=== PATIENT | female | born 1950 | race Caucasian/White ===

== ENCOUNTER 2018-08-12 20:43 | Inpatient (IN) | payer MEDICARE, BC ==
[~2018-08-12] VITALS: Ht 170.2 cm; Wt 59.1 kg
[2018-08-12] MEDS ORDERED: morphine 4 MG/ML inj SYRINge IM ONE (21:15)
[2018-08-12] MEDS ORDERED: ondansetron/PF 4mg/2ml inj IV ONE ×2 (21:15→22:35)
[2018-08-12] MEDS ORDERED: morphine 4 MG/ML inj SYRINge IV ONE ×2 (21:35→22:35)
[2018-08-12 22:38] LABS: BASOPHILS % (AUTO) 0 % (0-1); EOSINOPHILS % (AUTO) 0.1 % (0-6); HEMATOCRIT 34.2 % (35.0-45.0); HEMOGLOBIN 11.1 g/dl (12.0-16.0); LYMPHOCYTES # (AUTO) 0.4 X10'3 (1.1-4.8); LYMPHOCYTES % (AUTO) 1.7 % (21-51); MEAN CORPUSCULAR HEMOGLOBIN 29.9 PG (27.0-31.0); MEAN CORPUSCULAR HGB CONC 32.6 % (33.0-36.5); MEAN CORPUSCULAR VOLUME 91.5 FL (78-98); MEAN PLATELET VOLUME 8.1 FL (7.4-10.4); MONOCYTES # (AUTO) 0.3 X10'3 (0-0.9); MONOCYTES % (AUTO) 1.2 % (2-12); NEUTROPHILS # (AUTO) 20.9 X10'3 (1.8-7.7); PLATELET COUNT 582 X10'3 (140-440); RED BLOOD COUNT 3.73 X10'6 (4.20-5.60); RED CELL DISTRIBUTION WIDTH 15.3 % (11.5-14.5); WHITE BLOOD COUNT 21.5 X10'3 (4.5-11.0)
[2018-08-12 22:53] LABS: ALANINE AMINOTRANSFERASE 25 U/L (12-78); ALBUMIN 1.3 G/DL (3.4-5.0); ALBUMIN/GLOBULIN RATIO 0.3 (1.1-1.5); ALKALINE PHOSPHATASE 114 IU/L (46-116); ANION GAP 12 (8-16); ASPARTATE AMINO TRANSFERASE 27 U/L (10-37); BILIRUBIN,TOTAL 0.7 MG/DL (0.1-1.0); BLOOD UREA NITROGEN 37 MG/DL (7-18); BUN/CREATININE RATIO 24.3 (6.6-38.0); CALCIUM 7.7 MG/DL (8.5-10.1); CHLORIDE 94 MMOL/L (99-107); CREATININE 1.52 MG/DL (0.40-0.90); GLUCOSE 83 MG/DL (70-104); POTASSIUM 3.6 MMOL/L (3.5-5.1); SODIUM 129 MMOL/L (135-145); TOTAL CARBON DIOXIDE 23.2 MMOL/L (24-32); TOTAL PROTEIN 5.3 G/DL (6.4-8.2); eGFR 34 ML/MIN
[2018-08-12] MEDS ORDERED: magnesium hydroxide 30ml (MOM) UD suspension PO PRN (23:00)
[2018-08-12] MEDS ORDERED: magnesium 1gm/100ml D5W IVPB 100 ML IV PRN (23:00)
[2018-08-12] MEDS ORDERED: acetaminophen 325mg tablet PO PRN (23:00)
[2018-08-12] MEDS ORDERED: magnesium 4gm in 100ml NS 100 ML IV PRN (23:00)
[2018-08-12] MEDS ORDERED: potassium Cl 40MEQ/NS 500ml 500 ML IV PRN ×2 (23:00)
[2018-08-12] MEDS ORDERED: magnesium Cl slow-release 64mg tablet PO PRN (23:00)
[2018-08-12] MEDS ORDERED: mag hydrox/Alum hydrox/simeth 30ml oral suspension PO PRN (23:00)
[2018-08-12] MEDS ORDERED: potassium Cl 20 mEq SR tablet PO PRN (23:00)
[2018-08-12] MEDS ORDERED: morphine 2 MG/ML inj. syringe IV PRN (23:00)
[2018-08-12] MEDS ORDERED: CHOL50004 PO (23:07)
[2018-08-12] MEDS ORDERED: NAPR220C15 PO (23:07)
[2018-08-12] MEDS ORDERED: FLUT9.9S (23:07)
[2018-08-12] MEDS ORDERED: CYAN100070 PO (23:12)
[2018-08-12] MEDS ORDERED: PRAV10TA39 PO (23:12)
[2018-08-12] MEDS ORDERED: FLUO10CA28 PO (23:12)
[2018-08-12] MEDS ORDERED: OMEP40CA37 PO (23:12)
[2018-08-12] MEDS ORDERED: ATEN-169 PO (23:12)
[2018-08-12] MEDS ORDERED: LORA0.5T PO (23:12)
[2018-08-12 23:33] LABS: ANISOCYTOSIS 1+; BURR CELLS 2+; PLATELET ESTIMATE INCREASED; TOTAL CELLS COUNTED 100; TOXIC GRANULATION 3+
[2018-08-12 23:34] LABS: POIKILOCYTOSIS FEW
[2018-08-13] VITALS (14 sets, daily range): BP systolic 90–150; BP diastolic 36–54
[2018-08-13] MEDS ORDERED: piperacillin/tazo 3.375gm/50ml 50 ML IV SCH
[2018-08-13] MEDS: normal saline 1000ml 1,000 ML IV SCH ×3 (00:42→19:41)
[2018-08-13] MEDS: piperacillin/tazo 4.5gm/100ml 100 ML IV SCH ×3 (00:51→15:00)
[2018-08-13] MEDS: morphine 2 MG/ML inj. syringe IV PRN ×3 (02:59→19:46)
[2018-08-13 06:04] LABS: BASOPHILS % (AUTO) 0 % (0-1); EOSINOPHILS % (AUTO) 0.3 % (0-6); HEMATOCRIT 33.1 % (35.0-45.0); HEMOGLOBIN 10.9 g/dl (12.0-16.0); LYMPHOCYTES # (AUTO) 0.5 X10'3 (1.1-4.8); LYMPHOCYTES % (AUTO) 3.1 % (21-51); MEAN CORPUSCULAR HEMOGLOBIN 30.2 PG (27.0-31.0); MEAN CORPUSCULAR HGB CONC 32.8 % (33.0-36.5); MEAN CORPUSCULAR VOLUME 92.2 FL (78-98); MEAN PLATELET VOLUME 7.8 FL (7.4-10.4); MONOCYTES # (AUTO) 0.3 X10'3 (0-0.9); MONOCYTES % (AUTO) 2.2 % (2-12); NEUTROPHILS # (AUTO) 14.3 X10'3 (1.8-7.7); NEUTROPHILS % (AUTO) 94.4 % (42-75); PLATELET COUNT 519 X10'3 (140-440); RED BLOOD COUNT 3.59 X10'6 (4.20-5.60); RED CELL DISTRIBUTION WIDTH 15.2 % (11.5-14.5); WHITE BLOOD COUNT 15.2 X10'3 (4.5-11.0)
[2018-08-13 06:09] LABS: ALBUMIN 1.2 G/DL (3.4-5.0); ANION GAP 11 (8-16); BLOOD UREA NITROGEN 37 MG/DL (7-18); BUN/CREATININE RATIO 24.8 (6.6-38.0); CALCIUM 7.6 MG/DL (8.5-10.1); CHLORIDE 96 MMOL/L (99-107); CREATININE 1.49 MG/DL (0.40-0.90); GLUCOSE 70 MG/DL (70-104); MAGNESIUM 1.2 MG/DL (1.5-2.4); SODIUM 129 MMOL/L (135-145); TOTAL CARBON DIOXIDE 21.7 MMOL/L (24-32); eGFR 35 ML/MIN
[2018-08-13 07:04] LABS: ANISOCYTOSIS 1+; PLATELET ESTIMATE INCREASED; TOTAL CELLS COUNTED 100
[2018-08-13 07:05] LABS: POIKILOCYTOSIS FEW
[2018-08-13] MEDS: K and/or MAG REPLACEMENT MC SCH (08:23)
[2018-08-13] MEDS: FLUoxetine 20mg capsule PO SCH (09:57)
[2018-08-13 10:05] LABS: INR 1.2 INR; PARTIAL THROMBOPLASTIN TIME 32 SECONDS (22-32); PROTHROMBIN TIME 11.6 SECONDS (9.0-12.0)
[2018-08-13] MEDS ORDERED: propofol inj 20 ML IV ONE (16:20)
[2018-08-13] MEDS ORDERED: fentaNYL /PF 50mcg/ml 5ml ampule ONE (16:20)
[2018-08-13] MEDS ORDERED: rocuronium 10mg/ml inj IV ONE (16:20)
[2018-08-13] MEDS ORDERED: sevoflurane 250ml liquid IH ONE (16:36)
[2018-08-13] MEDS ORDERED: neostigmine methylsulfate 1 MG/ML 10ml vial ONE (18:00)
[2018-08-13] MEDS ORDERED: glycopyrrolate 0.2mg/ml inj ONE (18:00)
[2018-08-13] MEDS ORDERED: ringers solution, lacted 1,000 ML IV SCH (18:11)
[2018-08-13] MEDS ORDERED: meperidine/PF 25mg/ml syringe IV PRN ×3 (18:15)
[2018-08-13] MEDS ORDERED: morphine 4 MG/ML inj SYRINge IV PRN ×2 (18:15)
[2018-08-13] MEDS ORDERED: ondansetron/PF 4mg/2ml inj IV PRN (18:15)
[2018-08-13] MEDS ORDERED: proCHLORperazine 10 MG/2 ml inj IV PRN (18:15)
[2018-08-13 21:23] LABS: BASOPHILS % (AUTO) 0 % (0-1); EOSINOPHILS % (AUTO) 0 % (0-6); HEMATOCRIT 29.3 % (35.0-45.0); HEMOGLOBIN 9.5 g/dl (12.0-16.0); LYMPHOCYTES # (AUTO) 0.5 X10'3 (1.1-4.8); LYMPHOCYTES % (AUTO) 3.2 % (21-51); MEAN CORPUSCULAR HEMOGLOBIN 29.8 PG (27.0-31.0); MEAN CORPUSCULAR HGB CONC 32.5 % (33.0-36.5); MEAN CORPUSCULAR VOLUME 91.6 FL (78-98); MEAN PLATELET VOLUME 8.1 FL (7.4-10.4); MONOCYTES # (AUTO) 0.1 X10'3 (0-0.9); MONOCYTES % (AUTO) 0.4 % (2-12); NEUTROPHILS # (AUTO) 14.6 X10'3 (1.8-7.7); NEUTROPHILS % (AUTO) 96.4 % (42-75); PLATELET COUNT 406 X10'3 (140-440); RED CELL DISTRIBUTION WIDTH 15.8 % (11.5-14.5); WHITE BLOOD COUNT 15.1 X10'3 (4.5-11.0)
[2018-08-13] MEDS ORDERED: normal saline 500ml IV soln 500 ML IV ONE (21:40)
[2018-08-13 21:46] LABS: ALANINE AMINOTRANSFERASE 29 U/L (12-78); ALBUMIN 1.6 G/DL (3.4-5.0); ALBUMIN/GLOBULIN RATIO 0.5 (1.1-1.5); ALKALINE PHOSPHATASE 79 IU/L (46-116); ANION GAP 15 (8-16); ASPARTATE AMINO TRANSFERASE 53 U/L (10-37); BILIRUBIN,TOTAL 0.5 MG/DL (0.1-1.0); BLOOD UREA NITROGEN 37 MG/DL (7-18); BUN/CREATININE RATIO 27.8 (6.6-38.0); CALCIUM 7.5 MG/DL (8.5-10.1); CHLORIDE 99 MMOL/L (99-107); CREATININE 1.33 MG/DL (0.40-0.90); GLUCOSE 98 MG/DL (70-104); MAGNESIUM 1.4 MG/DL (1.5-2.4); PHOSPHORUS 5.3 MG/DL (2.3-4.5); POTASSIUM 4.1 MMOL/L (3.5-5.1); SODIUM 133 MMOL/L (135-145); TOTAL CARBON DIOXIDE 19.5 MMOL/L (24-32); eGFR 40 ML/MIN
[2018-08-13 23:55] LABS: CLARITY,URINE SLIGHTLY CLOUDY (Clear); COLOR,URINE YELLOW (Yellow); GLUCOSE, URINE NEGATIVE (Neg); KETONES,URINE NEGATIVE (Neg); LEUKOCYTE ESTERASE ,URINE NEGATIVE (Neg); NITRITES, URINE NEGATIVE (Neg); OCCULT BLOOD,URINE LARGE (Neg); PROTEIN,URINE TRACE mg/dl (Neg); UROBILINOGEN,URINE 0.2 E.U/dL (0.2-1.0)
[2018-08-14] VITALS (24 sets, daily range): BP systolic 84–127; BP diastolic 36–72
[2018-08-14 00:05] LABS: UA COLLECTION TYPE FOLEY CATH
[2018-08-14 00:09] LABS: AMORPHOUS URATES 1+; BACTERIA,URINE FEW /HPF (Neg); RBC,URINE 0-2 /HPF (0-2); SQUAMOUS EPITHELIAL CELL,UR FEW /LPF (FEW); URIC ACID CRYSTALS 4+ /HPF (NEGATIVE); WBC,URINE 0-4 /HPF (0-4)
[2018-08-14 00:50] LABS: UA EOSINOPHILS NO EOS /HPF
[2018-08-14 00:51] LABS: SODIUM,URINE RANDOM < 15 MEQ/L; TOTAL PROTEIN,URINE RANDOM 103.1 MG/DL
[2018-08-14] MEDS: piperacillin/tazo 4.5gm/100ml 100 ML IV SCH ×3 (00:56→15:20)
[2018-08-14 01:08] LABS: OSMOLALITY UA 357 MOSM/K (50-1400)
[2018-08-14] MEDS: morphine 2 MG/ML inj. syringe IV PRN (03:45)
[2018-08-14] MEDS: normal saline 1000ml 1,000 ML IV SCH ×3 (05:47→18:55)
[2018-08-14 06:56] LABS: BASOPHILS % (AUTO) 0 % (0-1); EOSINOPHILS % (AUTO) 0.2 % (0-6); HEMATOCRIT 28.1 % (35.0-45.0); LYMPHOCYTES # (AUTO) 0.8 X10'3 (1.1-4.8); LYMPHOCYTES % (AUTO) 4.1 % (21-51); MEAN CORPUSCULAR HEMOGLOBIN 29.6 PG (27.0-31.0); MEAN CORPUSCULAR VOLUME 92.4 FL (78-98); MEAN PLATELET VOLUME 8.1 FL (7.4-10.4); MONOCYTES # (AUTO) 0.1 X10'3 (0-0.9); MONOCYTES % (AUTO) 0.7 % (2-12); NEUTROPHILS # (AUTO) 18.4 X10'3 (1.8-7.7); PLATELET COUNT 384 X10'3 (140-440); RED BLOOD COUNT 3.04 X10'6 (4.20-5.60); RED CELL DISTRIBUTION WIDTH 15.8 % (11.5-14.5); WHITE BLOOD COUNT 19.4 X10'3 (4.5-11.0)
[2018-08-14 07:02] LABS: ALBUMIN 1.4 G/DL (3.4-5.0); ANION GAP 14 (8-16); BLOOD UREA NITROGEN 38 MG/DL (7-18); BUN/CREATININE RATIO 31.1 (6.6-38.0); CALCIUM 7.9 MG/DL (8.5-10.1); CHLORIDE 101 MMOL/L (99-107); CREATININE 1.22 MG/DL (0.40-0.90); GLUCOSE 135 MG/DL (70-104); MAGNESIUM 3.8 MG/DL (1.5-2.4); POTASSIUM 3.7 MMOL/L (3.5-5.1); SODIUM 135 MMOL/L (135-145); TOTAL CARBON DIOXIDE 20.5 MMOL/L (24-32); eGFR 44 ML/MIN
[2018-08-14 07:40] LABS: ANISOCYTOSIS 1+; PLATELET ESTIMATE NORMAL; POLYCHROMASIA 1+; TOTAL CELLS COUNTED 100; TOXIC GRANULATION 2+
[2018-08-14 07:41] LABS: BURR CELLS 1+; TARGET CELLS 1+; TOXIC VACUOLATION 1+
[2018-08-14] MEDS: K and/or MAG REPLACEMENT MC SCH (07:46)
[2018-08-14] MEDS ORDERED: atorvastatin 10mg tablet PO SCH (08:00)
[2018-08-14] MEDS: FLUoxetine 20mg capsule PO SCH (08:11)
[2018-08-14] MEDS: pantoprazole 40mg Tablet.DR PO SCH (08:11)
[2018-08-14] MEDS: atenolol 50mg tablet PO SCH (08:12)
[2018-08-14] MEDS: HYDROmorphone/NS 1 mg/ml CADD 50 ML IV SCH ×8 (11:00→23:00)
[2018-08-14] MEDS ORDERED: vancomycin/NS 1 GM ADD-VANTAGE 250 ML IV ONE (11:35)
[2018-08-14] MEDS: ipratropium/albuterol 3ml nebule NEB PRN (20:36)
[2018-08-15] VITALS (24 sets, daily range): BP systolic 90–166; BP diastolic 39–77
[2018-08-15] MEDS: HYDROmorphone/NS 1 mg/ml CADD 50 ML IV SCH ×12 (01:00→23:00)
[2018-08-15 06:28] LABS: BASOPHILS % (AUTO) 0.1 % (0-1); EOSINOPHILS # (AUTO) 0.1 X10'3 (0-0.9); EOSINOPHILS % (AUTO) 0.5 % (0-6); HEMATOCRIT 25.5 % (35.0-45.0); HEMOGLOBIN 8.2 g/dl (12.0-16.0); LYMPHOCYTES # (AUTO) 0.9 X10'3 (1.1-4.8); LYMPHOCYTES % (AUTO) 4.3 % (21-51); MEAN CORPUSCULAR HEMOGLOBIN 29.6 PG (27.0-31.0); MEAN CORPUSCULAR HGB CONC 32.1 % (33.0-36.5); MEAN CORPUSCULAR VOLUME 92.3 FL (78-98); MEAN PLATELET VOLUME 8.1 FL (7.4-10.4); MONOCYTES # (AUTO) 0.2 X10'3 (0-0.9); MONOCYTES % (AUTO) 0.9 % (2-12); NEUTROPHILS # (AUTO) 18.7 X10'3 (1.8-7.7); NEUTROPHILS % (AUTO) 94.2 % (42-75); PLATELET COUNT 303 X10'3 (140-440); RED BLOOD COUNT 2.76 X10'6 (4.20-5.60); RED CELL DISTRIBUTION WIDTH 15.6 % (11.5-14.5); WHITE BLOOD COUNT 19.9 X10'3 (4.5-11.0)
[2018-08-15 06:44] LABS: ALBUMIN 1.1 G/DL (3.4-5.0); ANION GAP 8 (8-16); BLOOD UREA NITROGEN 28 MG/DL (7-18); BUN/CREATININE RATIO 31.1 (6.6-38.0); CALCIUM 8.2 MG/DL (8.5-10.1); CHLORIDE 102 MMOL/L (99-107); GLUCOSE 130 MG/DL (70-104); MAGNESIUM 2.5 MG/DL (1.5-2.4); POTASSIUM 3.4 MMOL/L (3.5-5.1); SODIUM 133 MMOL/L (135-145); TOTAL CARBON DIOXIDE 22.8 MMOL/L (24-32); eGFR 63 ML/MIN
[2018-08-15 07:06] LABS: ANISOCYTOSIS 1+; PLATELET ESTIMATE NORMAL; TARGET CELLS FEW
[2018-08-15] MEDS: FLUoxetine 20mg capsule PO SCH (07:23)
[2018-08-15] MEDS: piperacillin/tazo 4.5gm/100ml 100 ML IV SCH ×3 (07:23→15:26)
[2018-08-15] MEDS: potassium Cl 20 mEq SR tablet PO PRN ×2 (07:23→19:13)
[2018-08-15] MEDS: pantoprazole 40mg Tablet.DR PO SCH (07:24)
[2018-08-15] MEDS: atenolol 50mg tablet PO SCH (07:24)
[2018-08-15] MEDS: K and/or MAG REPLACEMENT MC SCH (07:24)
[2018-08-15] MEDS: vitamin D (cholecalciferol) 1,000 unit tablet PO SCH (07:24)
[2018-08-15] MEDS: normal saline 1000ml 1,000 ML IV SCH ×2 (10:56→19:08)
[2018-08-15] MEDS: vancomycin/NS 1 GM ADD-VANTAGE 250 ML IV SCH (12:26)
[2018-08-15] MEDS: ipratropium/albuterol 3ml nebule NEB PRN (20:40)
[2018-08-15] MEDS: temazepam 15mg capsule PO PRN (20:57)
[2018-08-16] VITALS (20 sets, daily range): BP systolic 102–196; BP diastolic 52–96
[2018-08-16] MEDS: piperacillin/tazo 4.5gm/100ml 100 ML IV SCH ×3 (00:23→16:10)
[2018-08-16] MEDS: HYDROmorphone/NS 1 mg/ml CADD 50 ML IV SCH ×12 (01:00→23:00)
[2018-08-16] MEDS: normal saline 1000ml 1,000 ML IV SCH ×2 (05:18→16:10)
[2018-08-16 06:14] LABS: BASOPHILS % (AUTO) 0.1 % (0-1); EOSINOPHILS # (AUTO) 0.1 X10'3 (0-0.9); EOSINOPHILS % (AUTO) 0.4 % (0-6); HEMATOCRIT 24.6 % (35.0-45.0); LYMPHOCYTES # (AUTO) 0.9 X10'3 (1.1-4.8); LYMPHOCYTES % (AUTO) 5.2 % (21-51); MEAN CORPUSCULAR HEMOGLOBIN 29.6 PG (27.0-31.0); MEAN CORPUSCULAR HGB CONC 32.7 % (33.0-36.5); MEAN CORPUSCULAR VOLUME 90.7 FL (78-98); MEAN PLATELET VOLUME 8.4 FL (7.4-10.4); MONOCYTES # (AUTO) 0.2 X10'3 (0-0.9); MONOCYTES % (AUTO) 1.1 % (2-12); NEUTROPHILS % (AUTO) 93.2 % (42-75); PLATELET COUNT 306 X10'3 (140-440); RED BLOOD COUNT 2.71 X10'6 (4.20-5.60); RED CELL DISTRIBUTION WIDTH 16.3 % (11.5-14.5); WHITE BLOOD COUNT 18.3 X10'3 (4.5-11.0)
[2018-08-16 06:32] LABS: ALBUMIN 1.1 G/DL (3.4-5.0); ANION GAP 8 (8-16); BLOOD UREA NITROGEN 18 MG/DL (7-18); BUN/CREATININE RATIO 27.3 (6.6-38.0); CALCIUM 8.3 MG/DL (8.5-10.1); CHLORIDE 103 MMOL/L (99-107); CREATININE 0.66 MG/DL (0.40-0.90); GLUCOSE 115 MG/DL (70-104); MAGNESIUM 1.5 MG/DL (1.5-2.4); POTASSIUM 3.4 MMOL/L (3.5-5.1); SODIUM 134 MMOL/L (135-145); TOTAL CARBON DIOXIDE 23.2 MMOL/L (24-32); eGFR 90 ML/MIN
[2018-08-16] MEDS: FLUoxetine 20mg capsule PO SCH (07:56)
[2018-08-16] MEDS: vitamin D (cholecalciferol) 1,000 unit tablet PO SCH (07:57)
[2018-08-16] MEDS: atenolol 50mg tablet PO SCH (07:57)
[2018-08-16] MEDS: pantoprazole 40mg Tablet.DR PO SCH (07:57)
[2018-08-16] MEDS: K and/or MAG REPLACEMENT MC SCH (08:07)
[2018-08-16 08:50] LABS: ANISOCYTOSIS 1+; PLATELET ESTIMATE NORMAL; TOTAL CELLS COUNTED 100
[2018-08-16 08:51] LABS: TOXIC GRANULATION 1+
[2018-08-16] MEDS: vancomycin/NS 1 GM ADD-VANTAGE 250 ML IV SCH (12:54)
[2018-08-16] MEDS: lactose-reduced food (Ensure Enlive) - 237ml bottle PO SCH ×2 (13:00→20:43)
[2018-08-16] MEDS: ipratropium/albuterol 3ml nebule NEB PRN (13:07)
[2018-08-16] MEDS ORDERED: potassium Cl 20 mEq SR tablet PO PRN ×2 (19:30)
[2018-08-16] MEDS ORDERED: potassium Cl 40MEQ/NS 500ml 500 ML IV PRN ×2 (19:30)
[2018-08-16] MEDS ORDERED: lactobacillus rhamnosus 10,000 MMU CELLS/CAPSULE PO SCH (20:00)
[2018-08-16] MEDS: temazepam 15mg capsule PO PRN (20:51)
[2018-08-17] VITALS: BP 151/76
[2018-08-17] MEDS: HYDROmorphone/NS 1 mg/ml CADD 50 ML IV SCH ×12 (01:00→23:00)
[2018-08-17] MEDS: piperacillin/tazo 4.5gm/100ml 100 ML IV SCH ×4 (01:01→23:42)
[2018-08-17] MEDS: normal saline 1000ml 1,000 ML IV SCH ×3 (03:00→15:18)
[2018-08-17 05:09] LABS: BASOPHILS % (AUTO) 0 % (0-1); EOSINOPHILS % (AUTO) 0.1 % (0-6); HEMATOCRIT 27.6 % (35.0-45.0); LYMPHOCYTES % (AUTO) 4.2 % (21-51); MEAN CORPUSCULAR HEMOGLOBIN 29.7 PG (27.0-31.0); MEAN CORPUSCULAR HGB CONC 32.6 % (33.0-36.5); MEAN PLATELET VOLUME 8.7 FL (7.4-10.4); MONOCYTES # (AUTO) 0.6 X10'3 (0-0.9); MONOCYTES % (AUTO) 2.5 % (2-12); NEUTROPHILS # (AUTO) 21.5 X10'3 (1.8-7.7); NEUTROPHILS % (AUTO) 93.2 % (42-75); PLATELET COUNT 306 X10'3 (140-440); RED BLOOD COUNT 3.03 X10'6 (4.20-5.60); RED CELL DISTRIBUTION WIDTH 15.9 % (11.5-14.5); WHITE BLOOD COUNT 23.1 X10'3 (4.5-11.0)
[2018-08-17 05:26] LABS: ALBUMIN 1.2 G/DL (3.4-5.0); ANION GAP 10 (8-16); BLOOD UREA NITROGEN 14 MG/DL (7-18); BUN/CREATININE RATIO 22.2 (6.6-38.0); CALCIUM 8.5 MG/DL (8.5-10.1); CHLORIDE 105 MMOL/L (99-107); CREATININE 0.63 MG/DL (0.40-0.90); GLUCOSE 132 MG/DL (70-104); MAGNESIUM 1.3 MG/DL (1.5-2.4); POTASSIUM 3.7 MMOL/L (3.5-5.1); SODIUM 138 MMOL/L (135-145); TOTAL CARBON DIOXIDE 23.5 MMOL/L (24-32); eGFR > 90 ML/MIN
[2018-08-17] MEDS: ipratropium/albuterol 3ml nebule NEB PRN ×2 (05:58→20:06)
[2018-08-17 07:00] VITALS: BP 167/74
[2018-08-17] MEDS: K and/or MAG REPLACEMENT MC SCH (08:00)
[2018-08-17] MEDS: vitamin D (cholecalciferol) 1,000 unit tablet PO SCH (08:03)
[2018-08-17] MEDS: pantoprazole 40mg Tablet.DR PO SCH (08:04)
[2018-08-17] MEDS: FLUoxetine 20mg capsule PO SCH (08:04)
[2018-08-17] MEDS: lactose-reduced food (Ensure Enlive) - 237ml bottle PO SCH ×3 (08:16→18:01)
[2018-08-17 11:00] VITALS: BP 160/68
[2018-08-17] MEDS ORDERED: VANCOMYCIN LEVEL IV ONE (11:30)
[2018-08-17] MEDS: atenolol 50mg tablet PO SCH (12:38)
[2018-08-17] MEDS: diatr meglu/diatrizoate 30ml oral sol.-(3 dose) bottle PO PRN (19:58)
[2018-08-17] MEDS: LORazepam 0.5 MG tablet PO PRN (19:58)
[2018-08-18] VITALS: BP 164/81
[2018-08-18] MEDS: HYDROmorphone/NS 1 mg/ml CADD 50 ML IV SCH ×6 (01:00→11:00)
[2018-08-18 05:08] LABS: MAGNESIUM 1.2 MG/DL (1.5-2.4); POTASSIUM 3.7 MMOL/L (3.5-5.1)
[2018-08-18 07:00] VITALS: BP 147/88
[2018-08-18] MEDS: diatr meglu/diatrizoate 30ml oral sol.-(3 dose) bottle PO PRN ×2 (07:44→10:58)
[2018-08-18] MEDS: lactose-reduced food (Ensure Enlive) - 237ml bottle PO SCH ×3 (08:00→18:05)
[2018-08-18 08:29] LABS: BASOPHILS % (AUTO) 0.2 % (0-1); EOSINOPHILS # (AUTO) 0.4 X10'3 (0-0.9); HEMATOCRIT 25.8 % (35.0-45.0); HEMOGLOBIN 8.3 g/dl (12.0-16.0); LYMPHOCYTES % (AUTO) 5.6 % (21-51); MEAN CORPUSCULAR HEMOGLOBIN 29.5 PG (27.0-31.0); MEAN PLATELET VOLUME 9.2 FL (7.4-10.4); MONOCYTES # (AUTO) 0.5 X10'3 (0-0.9); MONOCYTES % (AUTO) 2.9 % (2-12); NEUTROPHILS # (AUTO) 16.8 X10'3 (1.8-7.7); NEUTROPHILS % (AUTO) 89.3 % (42-75); PLATELET COUNT 310 X10'3 (140-440); RED CELL DISTRIBUTION WIDTH 16.3 % (11.5-14.5); WHITE BLOOD COUNT 18.8 X10'3 (4.5-11.0)
[2018-08-18 08:56] LABS: ALBUMIN 1.2 G/DL (3.4-5.0); BLOOD UREA NITROGEN 11 MG/DL (7-18); BUN/CREATININE RATIO 20.8 (6.6-38.0); CALCIUM 8.4 MG/DL (8.5-10.1); CREATININE 0.53 MG/DL (0.40-0.90); GLUCOSE 130 MG/DL (70-104); TOTAL CARBON DIOXIDE 23.9 MMOL/L (24-32); eGFR > 90 ML/MIN
[2018-08-18] MEDS: normal saline 1000ml 1,000 ML IV SCH ×2 (08:56→16:34)
[2018-08-18 09:10] LABS: ANION GAP 9 (8-16); CHLORIDE 103 MMOL/L (99-107); SODIUM 136 MMOL/L (135-145)
[2018-08-18 09:13] LABS: TOTAL CELLS COUNTED 100
[2018-08-18 09:14] LABS: ANISOCYTOSIS 1+; PLATELET ESTIMATE NORMAL; TARGET CELLS 1+
[2018-08-18 09:16] LABS: GIANT PLATELET FEW; LARGE PLATELETS FEW; TOXIC GRANULATION 2+
[2018-08-18] MEDS ORDERED: iohexol 300mg/ml 100ml inj. ONE (10:55)
[2018-08-18 11:00] VITALS: BP 172/89
[2018-08-18] MEDS ORDERED: enoxaparin 40mg/0.4ml syringe SUBCUT SCH (11:00)
[2018-08-18] MEDS: metroNIDAZOLE-Flagyl 500mg/NS 100 ML IV SCH ×2 (12:05→16:34)
[2018-08-18] MEDS: vitamin D (cholecalciferol) 1,000 unit tablet PO SCH (12:06)
[2018-08-18] MEDS: FLUoxetine 20mg capsule PO SCH (12:07)
[2018-08-18] MEDS: atenolol 50mg tablet PO SCH (12:07)
[2018-08-18] MEDS: pantoprazole 40mg Tablet.DR PO SCH (12:07)
[2018-08-18] MEDS: K and/or MAG REPLACEMENT MC SCH (12:53)
[2018-08-18] MEDS: CefTRIAXone 2gm/D5W 50ml 50 ML IV SCH (13:11)
[2018-08-18 19:30] VITALS: BP 168/90
[2018-08-18] MEDS: ipratropium/albuterol 3ml nebule NEB PRN (19:31)
[2018-08-18] MEDS: enoxaparin 60mg/0.6ml syringe SUBCUT SCH (20:35)
[2018-08-18] MEDS: temazepam 15mg capsule PO PRN (20:35)
[2018-08-18] MEDS: LORazepam 0.5 MG tablet PO PRN (20:36)
[2018-08-18] MEDS ORDERED: magnesium oxide 400mg tablet PO ONE (20:55)
[2018-08-18] MEDS: HYDROcodone/acetaminophen 5mg/325mg tablet PO PRN (20:58)
[2018-08-18] MEDS: ondansetron/PF 4mg/2ml inj IV PRN (20:59)
[2018-08-19] VITALS (7 sets, daily range): BP systolic 161–192; BP diastolic 78–110
[2018-08-19] MEDS: metroNIDAZOLE-Flagyl 500mg/NS 100 ML IV SCH ×4 (01:03→23:57)
[2018-08-19] MEDS: ipratropium/albuterol 3ml nebule NEB PRN ×3 (02:41→23:42)
[2018-08-19] MEDS: ondansetron/PF 4mg/2ml inj IV PRN (02:46)
[2018-08-19] MEDS ORDERED: CADD PCA waste documentation MC SCH (04:40)
[2018-08-19] MEDS: normal saline 1000ml 1,000 ML IV SCH (05:05)
[2018-08-19 05:32] LABS: MAGNESIUM 1.3 MG/DL (1.5-2.4); POTASSIUM 3.6 MMOL/L (3.5-5.1)
[2018-08-19] MEDS: K and/or MAG REPLACEMENT MC SCH (07:57)
[2018-08-19] MEDS: lactose-reduced food (Ensure Enlive) - 237ml bottle PO SCH ×3 (08:00→18:00)
[2018-08-19] MEDS: vitamin D (cholecalciferol) 1,000 unit tablet PO SCH (08:04)
[2018-08-19] MEDS: FLUoxetine 20mg capsule PO SCH (08:04)
[2018-08-19] MEDS: pantoprazole 40mg Tablet.DR PO SCH (08:05)
[2018-08-19] MEDS: atenolol 50mg tablet PO SCH ×2 (08:05→19:54)
[2018-08-19] MEDS: enoxaparin 60mg/0.6ml syringe SUBCUT SCH ×2 (08:11→20:00)
[2018-08-19] MEDS: HYDROcodone/acetaminophen 5mg/325mg tablet PO PRN ×3 (08:11→22:35)
[2018-08-19] MEDS: CefTRIAXone 2gm/D5W 50ml 50 ML IV SCH (09:32)
[2018-08-19] MEDS ORDERED: atenolol 50mg tablet PO PRN (10:10)
[2018-08-19] MEDS ORDERED: magnesium 4gm in 100ml NS 100 ML IV PRN (10:30)
[2018-08-19] MEDS ORDERED: furosemide 10 MG/1 ML 10ml inj IV ONE (12:40)
[2018-08-19] MEDS: magnesium Cl slow-release 64mg tablet PO PRN (17:17)
[2018-08-19] MEDS: LORazepam 0.5 MG tablet PO PRN (19:52)
[2018-08-20] VITALS: BP 169/93
[2018-08-20 07:00] VITALS: BP 174/89
[2018-08-20] MEDS: FLUoxetine 20mg capsule PO SCH (07:51)
[2018-08-20] MEDS: pantoprazole 40mg Tablet.DR PO SCH (07:51)
[2018-08-20] MEDS: atenolol 50mg tablet PO SCH ×2 (07:52→20:16)
[2018-08-20] MEDS: metroNIDAZOLE-Flagyl 500mg/NS 100 ML IV SCH ×2 (07:52→16:20)
[2018-08-20] MEDS: vitamin D (cholecalciferol) 1,000 unit tablet PO SCH (07:52)
[2018-08-20] MEDS: K and/or MAG REPLACEMENT MC SCH (07:55)
[2018-08-20] MEDS: Protein Smoothie (high protein) 240ml (8oz) cup PO SCH ×3 (08:00→14:39)
[2018-08-20] MEDS: lactose-reduced food (Ensure Enlive) - 237ml bottle PO SCH ×3 (08:00→18:10)
[2018-08-20] MEDS: HYDROcodone/acetaminophen 5mg/325mg tablet PO PRN ×3 (08:00→20:18)
[2018-08-20] MEDS: CefTRIAXone 2gm/D5W 50ml 50 ML IV SCH (09:16)
[2018-08-20 09:56] LABS: BASOPHILS # (AUTO) 0.2 X10'3 (0-0.2); BASOPHILS % (AUTO) 0.6 % (0-1); EOSINOPHILS % (AUTO) 0.1 % (0-6); HEMATOCRIT 29.3 % (35.0-45.0); HEMOGLOBIN 9.3 g/dl (12.0-16.0); LYMPHOCYTES # (AUTO) 0.8 X10'3 (1.1-4.8); LYMPHOCYTES % (AUTO) 3.4 % (21-51); MEAN CORPUSCULAR HEMOGLOBIN 29.3 PG (27.0-31.0); MEAN CORPUSCULAR HGB CONC 31.8 % (33.0-36.5); MEAN CORPUSCULAR VOLUME 92.1 FL (78-98); MEAN PLATELET VOLUME 10.4 FL (7.4-10.4); MONOCYTES # (AUTO) 0.1 X10'3 (0-0.9); MONOCYTES % (AUTO) 0.5 % (2-12); NEUTROPHILS # (AUTO) 22.8 X10'3 (1.8-7.7); NEUTROPHILS % (AUTO) 95.4 % (42-75); PLATELET COUNT 473 X10'3 (140-440); RED BLOOD COUNT 3.18 X10'6 (4.20-5.60); WHITE BLOOD COUNT 23.9 X10'3 (4.5-11.0)
[2018-08-20] MEDS ORDERED: potassium Cl 40MEQ/NS 500ml 500 ML IV PRN ×2 (10:40)
[2018-08-20] MEDS ORDERED: potassium Cl 20 mEq SR tablet PO PRN (10:40)
[2018-08-20] MEDS: potassium Cl 20 mEq SR tablet PO PRN ×2 (11:26→16:20)
[2018-08-20] MEDS: lisinopril 10 MG tablet PO PRN (11:32)
[2018-08-20 12:13] LABS: ANISOCYTOSIS 1+; HYPOCHROMASIA 1+; PLATELET ESTIMATE INCREASED; POLYCHROMASIA 2+; TOTAL CELLS COUNTED 100
[2018-08-20 12:14] LABS: TARGET CELLS 1+; TOXIC GRANULATION 3+
[2018-08-20 12:26] VITALS: BP 177/87
[2018-08-20] MEDS: ipratropium/albuterol 3ml nebule NEB PRN (14:00)
[2018-08-20] MEDS: LORazepam 0.5 MG tablet PO PRN (16:20)
[2018-08-20 20:00] VITALS: BP 157/73
[2018-08-20] MEDS: enoxaparin 60mg/0.6ml syringe SUBCUT SCH (20:17)
[2018-08-21] VITALS: BP 161/88
[2018-08-21] MEDS: metroNIDAZOLE-Flagyl 500mg/NS 100 ML IV SCH ×4 (00:14→23:10)
[2018-08-21 04:30] LABS: ALANINE AMINOTRANSFERASE 10 U/L (12-78); ALBUMIN 1.3 G/DL (3.4-5.0); ALBUMIN/GLOBULIN RATIO 0.4 (1.1-1.5); ALKALINE PHOSPHATASE 99 IU/L (46-116); ANION GAP 8 (8-16); ASPARTATE AMINO TRANSFERASE 18 U/L (10-37); BASOPHILS # (AUTO) 0.1 X10'3 (0-0.2); BASOPHILS % (AUTO) 0.6 % (0-1); BILIRUBIN,TOTAL 0.2 MG/DL (0.1-1.0); BLOOD UREA NITROGEN 9 MG/DL (7-18); CALCIUM 8.4 MG/DL (8.5-10.1); CHLORIDE 99 MMOL/L (99-107); CREATININE 0.45 MG/DL (0.40-0.90); EOSINOPHILS % (AUTO) 0 % (0-6); GLUCOSE 113 MG/DL (70-104); HEMATOCRIT 28.3 % (35.0-45.0); LYMPHOCYTES % (AUTO) 4.4 % (21-51); MAGNESIUM 1.2 MG/DL (1.5-2.4); MEAN CORPUSCULAR HEMOGLOBIN 29.3 PG (27.0-31.0); MEAN CORPUSCULAR HGB CONC 31.9 % (33.0-36.5); MEAN CORPUSCULAR VOLUME 92.1 FL (78-98); MEAN PLATELET VOLUME 9.9 FL (7.4-10.4); MONOCYTES # (AUTO) 0.7 X10'3 (0-0.9); MONOCYTES % (AUTO) 2.8 % (2-12); NEUTROPHILS # (AUTO) 21.2 X10'3 (1.8-7.7); NEUTROPHILS % (AUTO) 92.2 % (42-75); PLATELET COUNT 442 X10'3 (140-440); POTASSIUM 3.4 MMOL/L (3.5-5.1); RED BLOOD COUNT 3.07 X10'6 (4.20-5.60); RED CELL DISTRIBUTION WIDTH 15.7 % (11.5-14.5); SODIUM 133 MMOL/L (135-145); TOTAL CARBON DIOXIDE 26.3 MMOL/L (24-32); TOTAL PROTEIN 4.6 G/DL (6.4-8.2); eGFR > 90 ML/MIN
[2018-08-21 07:00] VITALS: BP 138/78
[2018-08-21] MEDS: K and/or MAG REPLACEMENT MC SCH (08:00)
[2018-08-21] MEDS: CefTRIAXone 2gm/D5W 50ml 50 ML IV SCH (08:00)
[2018-08-21] MEDS: lactose-reduced food (Ensure Enlive) - 237ml bottle PO SCH ×3 (08:00→17:44)
[2018-08-21] MEDS: HYDROcodone/acetaminophen 5mg/325mg tablet PO PRN ×3 (08:24→20:35)
[2018-08-21] MEDS: enoxaparin 60mg/0.6ml syringe SUBCUT SCH ×2 (08:25→20:36)
[2018-08-21] MEDS: Protein Smoothie (high protein) 240ml (8oz) cup PO SCH ×3 (08:25→20:33)
[2018-08-21] MEDS: magnesium Cl slow-release 64mg tablet PO PRN ×2 (09:45→22:48)
[2018-08-21] MEDS: potassium Cl 20 mEq SR tablet PO PRN ×2 (09:45→14:38)
[2018-08-21] MEDS: vitamin D (cholecalciferol) 1,000 unit tablet PO SCH (09:45)
[2018-08-21] MEDS: FLUoxetine 20mg capsule PO SCH (09:46)
[2018-08-21] MEDS: pantoprazole 40mg Tablet.DR PO SCH (09:46)
[2018-08-21] MEDS: atenolol 50mg tablet PO SCH ×2 (09:46→22:48)
[2018-08-21] MEDS: lactobacillus rhamnosus 10,000 MMU CELLS/CAPSULE PO SCH ×2 (09:47→20:34)
[2018-08-21 11:00] VITALS: BP 162/59
[2018-08-21] MEDS ORDERED: potassium Cl oral solution 20 MEQ/15 ML PO PRN ×2 (19:23→19:24)
[2018-08-21 20:00] VITALS: BP 113/62
[2018-08-22] VITALS: BP 125/71
[2018-08-22] MEDS: HYDROcodone/acetaminophen 5mg/325mg tablet PO PRN ×3 (05:06→19:43)
[2018-08-22 05:34] LABS: MAGNESIUM 1.2 MG/DL (1.5-2.4); POTASSIUM 4.3 MMOL/L (3.5-5.1)
[2018-08-22 07:00] VITALS: BP 137/70
[2018-08-22] MEDS: pantoprazole 40mg Tablet.DR PO SCH (07:42)
[2018-08-22] MEDS: lactobacillus rhamnosus 10,000 MMU CELLS/CAPSULE PO SCH ×2 (07:42→19:43)
[2018-08-22] MEDS: vitamin D (cholecalciferol) 1,000 unit tablet PO SCH (07:42)
[2018-08-22] MEDS: metroNIDAZOLE-Flagyl 500mg/NS 100 ML IV SCH ×3 (07:42→23:11)
[2018-08-22] MEDS: FLUoxetine 20mg capsule PO SCH (07:42)
[2018-08-22] MEDS: atenolol 50mg tablet PO SCH ×2 (07:43→20:55)
[2018-08-22] MEDS: magnesium Cl slow-release 64mg tablet PO PRN ×2 (07:43→23:11)
[2018-08-22] MEDS: enoxaparin 60mg/0.6ml syringe SUBCUT SCH ×2 (07:44→19:43)
[2018-08-22] MEDS: lactose-reduced food (Ensure Enlive) - 237ml bottle PO SCH ×3 (08:00→18:00)
[2018-08-22] MEDS: CefTRIAXone 2gm/D5W 50ml 50 ML IV SCH (08:00)
[2018-08-22] MEDS: Protein Smoothie (high protein) 240ml (8oz) cup PO SCH ×3 (08:00→18:00)
[2018-08-22] MEDS: K and/or MAG REPLACEMENT MC SCH (08:00)
[2018-08-22 09:38] LABS: HEMATOCRIT 28.9 % (35.0-45.0); HEMOGLOBIN 9.2 g/dl (12.0-16.0); MEAN CORPUSCULAR HEMOGLOBIN 29.3 PG (27.0-31.0); MEAN CORPUSCULAR VOLUME 91.4 FL (78-98); MEAN PLATELET VOLUME 10.4 FL (7.4-10.4); PLATELET COUNT 451 X10'3 (140-440); RED BLOOD COUNT 3.16 X10'6 (4.20-5.60); RED CELL DISTRIBUTION WIDTH 16.2 % (11.5-14.5)
[2018-08-22 09:55] LABS: WHITE BLOOD COUNT 25.4 X10'3 (4.5-11.0)
[2018-08-22 10:11] LABS: TOTAL CELLS COUNTED 100
[2018-08-22 10:12] LABS: ANISOCYTOSIS 1+; HYPOCHROMASIA 1+; PLATELET ESTIMATE INCREASED; POLYCHROMASIA 1+; TARGET CELLS 1+; TOXIC GRANULATION 1+; TOXIC VACUOLATION 1+
[2018-08-22 11:00] VITALS: BP 134/70
[2018-08-22] MEDS ORDERED: iohexol 350MG/ML 100ml bottle IV ONE (11:08)
[2018-08-22 20:00] VITALS: BP 125/58
[2018-08-22] MEDS ORDERED: magnesium 4gm in 100ml NS 100 ML IV PRN (22:55)
[2018-08-22] MEDS ORDERED: potassium Cl 40MEQ/NS 500ml 500 ML IV PRN ×2 (22:55)
[2018-08-22] MEDS ORDERED: potassium Cl 20 mEq SR tablet PO PRN (22:55)
[2018-08-23] VITALS: BP 141/64
[2018-08-23 05:31] LABS: ALBUMIN 1.2 G/DL (3.4-5.0); ANION GAP 4 (8-16); BLOOD UREA NITROGEN 5 MG/DL (7-18); BUN/CREATININE RATIO 11.9 (6.6-38.0); CALCIUM 8.3 MG/DL (8.5-10.1); CHLORIDE 97 MMOL/L (99-107); CREATININE 0.42 MG/DL (0.40-0.90); GLUCOSE 106 MG/DL (70-104); MAGNESIUM 1.1 MG/DL (1.5-2.4); POTASSIUM 3.5 MMOL/L (3.5-5.1); SODIUM 129 MMOL/L (135-145); TOTAL CARBON DIOXIDE 27.8 MMOL/L (24-32); eGFR > 90 ML/MIN
[2018-08-23 05:43] LABS: BASOPHILS # (AUTO) 0.1 X10'3 (0-0.2); BASOPHILS % (AUTO) 0.3 % (0-1); EOSINOPHILS # (AUTO) 0.5 X10'3 (0-0.9); EOSINOPHILS % (AUTO) 2.3 % (0-6); HEMATOCRIT 29.6 % (35.0-45.0); HEMOGLOBIN 9.6 g/dl (12.0-16.0); LYMPHOCYTES # (AUTO) 0.8 X10'3 (1.1-4.8); LYMPHOCYTES % (AUTO) 3.7 % (21-51); MEAN CORPUSCULAR HEMOGLOBIN 29.7 PG (27.0-31.0); MEAN CORPUSCULAR HGB CONC 32.4 % (33.0-36.5); MEAN CORPUSCULAR VOLUME 91.6 FL (78-98); MONOCYTES # (AUTO) 0.5 X10'3 (0-0.9); MONOCYTES % (AUTO) 2.3 % (2-12); NEUTROPHILS # (AUTO) 20.6 X10'3 (1.8-7.7); NEUTROPHILS % (AUTO) 91.4 % (42-75); PLATELET COUNT 497 X10'3 (140-440); RED BLOOD COUNT 3.23 X10'6 (4.20-5.60); RED CELL DISTRIBUTION WIDTH 16.3 % (11.5-14.5); WHITE BLOOD COUNT 22.5 X10'3 (4.5-11.0)
[2018-08-23] MEDS: pantoprazole 40mg Tablet.DR PO SCH (07:37)
[2018-08-23] MEDS: FLUoxetine 20mg capsule PO SCH (07:38)
[2018-08-23] MEDS: atenolol 50mg tablet PO SCH ×2 (07:38→19:33)
[2018-08-23] MEDS: lactobacillus rhamnosus 10,000 MMU CELLS/CAPSULE PO SCH ×2 (07:38→19:32)
[2018-08-23] MEDS: vitamin D (cholecalciferol) 1,000 unit tablet PO SCH (07:39)
[2018-08-23] MEDS: enoxaparin 60mg/0.6ml syringe SUBCUT SCH ×2 (07:40→19:33)
[2018-08-23] MEDS: CefTRIAXone 2gm/D5W 50ml 50 ML IV SCH (07:40)
[2018-08-23] MEDS: lactose-reduced food (Ensure Enlive) - 237ml bottle PO SCH ×3 (07:42→18:01)
[2018-08-23] MEDS: Protein Smoothie (high protein) 240ml (8oz) cup PO SCH ×3 (07:43→18:01)
[2018-08-23] MEDS: K and/or MAG REPLACEMENT MC SCH (08:00)
[2018-08-23] MEDS: loperamide 2mg capsule PO PRN ×2 (09:12→19:33)
[2018-08-23] MEDS: magnesium Cl slow-release 64mg tablet PO PRN ×2 (09:13→21:26)
[2018-08-23] MEDS: metroNIDAZOLE-Flagyl 500mg/NS 100 ML IV SCH ×3 (09:15→23:22)
[2018-08-23 12:00] VITALS: BP 135/60
[2018-08-23] MEDS: HYDROcodone/acetaminophen 5mg/325mg tablet PO PRN (19:32)
[2018-08-23 20:00] VITALS: BP 147/63
[2018-08-24] VITALS: BP 135/57
[2018-08-24 05:03] LABS: BASOPHILS # (AUTO) 0.1 X10'3 (0-0.2); BASOPHILS % (AUTO) 0.7 % (0-1); EOSINOPHILS # (AUTO) 0.1 X10'3 (0-0.9); EOSINOPHILS % (AUTO) 0.6 % (0-6); HEMATOCRIT 27.7 % (35.0-45.0); HEMOGLOBIN 8.9 g/dl (12.0-16.0); LYMPHOCYTES # (AUTO) 0.9 X10'3 (1.1-4.8); LYMPHOCYTES % (AUTO) 5.9 % (21-51); MEAN CORPUSCULAR HEMOGLOBIN 29.3 PG (27.0-31.0); MEAN CORPUSCULAR VOLUME 91.7 FL (78-98); MEAN PLATELET VOLUME 9.8 FL (7.4-10.4); MONOCYTES # (AUTO) 0.5 X10'3 (0-0.9); MONOCYTES % (AUTO) 3.3 % (2-12); NEUTROPHILS # (AUTO) 14.5 X10'3 (1.8-7.7); NEUTROPHILS % (AUTO) 89.5 % (42-75); PLATELET COUNT 532 X10'3 (140-440); RED BLOOD COUNT 3.02 X10'6 (4.20-5.60); RED CELL DISTRIBUTION WIDTH 16.5 % (11.5-14.5); WHITE BLOOD COUNT 16.2 X10'3 (4.5-11.0)
[2018-08-24 05:21] LABS: ALBUMIN 1.2 G/DL (3.4-5.0); ANION GAP 6 (8-16); BLOOD UREA NITROGEN 5 MG/DL (7-18); BUN/CREATININE RATIO 10.4 (6.6-38.0); CALCIUM 8.1 MG/DL (8.5-10.1); CHLORIDE 98 MMOL/L (99-107); CREATININE 0.48 MG/DL (0.40-0.90); GLUCOSE 126 MG/DL (70-104); MAGNESIUM 1.2 MG/DL (1.5-2.4); POTASSIUM 3.4 MMOL/L (3.5-5.1); SODIUM 134 MMOL/L (135-145); TOTAL CARBON DIOXIDE 30.4 MMOL/L (24-32); eGFR > 90 ML/MIN
[2018-08-24] MEDS: HYDROcodone/acetaminophen 5mg/325mg tablet PO PRN ×2 (07:20→16:03)
[2018-08-24] MEDS: potassium Cl 20 mEq SR tablet PO PRN ×3 (07:21→20:14)
[2018-08-24] MEDS: lactobacillus rhamnosus 10,000 MMU CELLS/CAPSULE PO SCH ×2 (07:21→20:15)
[2018-08-24] MEDS: magnesium Cl slow-release 64mg tablet PO PRN ×2 (07:21→20:15)
[2018-08-24] MEDS: FLUoxetine 20mg capsule PO SCH (07:22)
[2018-08-24] MEDS: pantoprazole 40mg Tablet.DR PO SCH (07:22)
[2018-08-24] MEDS: CefTRIAXone 2gm/D5W 50ml 50 ML IV SCH (07:24)
[2018-08-24] MEDS: vitamin D (cholecalciferol) 1,000 unit tablet PO SCH (07:33)
[2018-08-24] MEDS: atenolol 50mg tablet PO SCH ×2 (07:34→20:00)
[2018-08-24] MEDS: Protein Smoothie (high protein) 240ml (8oz) cup PO SCH ×3 (07:36→18:00)
[2018-08-24] MEDS: lactose-reduced food (Ensure Enlive) - 237ml bottle PO SCH ×3 (07:36→18:00)
[2018-08-24 08:00] VITALS: BP 155/75
[2018-08-24] MEDS: K and/or MAG REPLACEMENT MC SCH (08:00)
[2018-08-24] MEDS: metroNIDAZOLE-Flagyl 500mg/NS 100 ML IV SCH ×3 (08:56→23:18)
[2018-08-24] MEDS: enoxaparin 60mg/0.6ml syringe SUBCUT SCH ×2 (08:56→20:15)
[2018-08-24 12:00] VITALS: BP 137/55
[2018-08-24 20:00] VITALS: BP 136/67
[2018-08-25 00:01] VITALS: BP 154/72
[2018-08-25] MEDS: HYDROcodone/acetaminophen 5mg/325mg tablet PO PRN ×2 (00:10→21:00)
[2018-08-25 05:17] LABS: BASOPHILS # (AUTO) 0.1 X10'3 (0-0.2); BASOPHILS % (AUTO) 0.9 % (0-1); EOSINOPHILS # (AUTO) 0.4 X10'3 (0-0.9); EOSINOPHILS % (AUTO) 2.6 % (0-6); HEMATOCRIT 26.4 % (35.0-45.0); HEMOGLOBIN 8.7 g/dl (12.0-16.0); LYMPHOCYTES % (AUTO) 6.9 % (21-51); MEAN CORPUSCULAR HEMOGLOBIN 29.9 PG (27.0-31.0); MEAN CORPUSCULAR HGB CONC 32.8 % (33.0-36.5); MEAN CORPUSCULAR VOLUME 91.3 FL (78-98); MEAN PLATELET VOLUME 9.6 FL (7.4-10.4); MONOCYTES # (AUTO) 0.9 X10'3 (0-0.9); MONOCYTES % (AUTO) 5.7 % (2-12); NEUTROPHILS # (AUTO) 12.7 X10'3 (1.8-7.7); NEUTROPHILS % (AUTO) 83.9 % (42-75); PLATELET COUNT 589 X10'3 (140-440); RED BLOOD COUNT 2.89 X10'6 (4.20-5.60); RED CELL DISTRIBUTION WIDTH 16.4 % (11.5-14.5); WHITE BLOOD COUNT 15.2 X10'3 (4.5-11.0)
[2018-08-25 05:38] LABS: ALBUMIN 1.4 G/DL (3.4-5.0); ANION GAP 5 (8-16); BLOOD UREA NITROGEN 4 MG/DL (7-18); BUN/CREATININE RATIO 8.9 (6.6-38.0); CHLORIDE 99 MMOL/L (99-107); CREATININE 0.45 MG/DL (0.40-0.90); GLUCOSE 120 MG/DL (70-104); MAGNESIUM 1.1 MG/DL (1.5-2.4); POTASSIUM 3.8 MMOL/L (3.5-5.1); SODIUM 135 MMOL/L (135-145); TOTAL CARBON DIOXIDE 30.6 MMOL/L (24-32); eGFR > 90 ML/MIN
[2018-08-25 07:00] VITALS: BP 138/76
[2018-08-25] MEDS: CefTRIAXone 2gm/D5W 50ml 50 ML IV SCH (07:31)
[2018-08-25] MEDS: pantoprazole 40mg Tablet.DR PO SCH (07:31)
[2018-08-25] MEDS: vitamin D (cholecalciferol) 1,000 unit tablet PO SCH (07:31)
[2018-08-25] MEDS: lactobacillus rhamnosus 10,000 MMU CELLS/CAPSULE PO SCH ×2 (07:31→20:42)
[2018-08-25] MEDS: atenolol 50mg tablet PO SCH ×2 (07:32→20:43)
[2018-08-25] MEDS: FLUoxetine 20mg capsule PO SCH (07:32)
[2018-08-25] MEDS: enoxaparin 60mg/0.6ml syringe SUBCUT SCH ×2 (07:33→20:42)
[2018-08-25] MEDS: loperamide 2mg capsule PO PRN (07:36)
[2018-08-25] MEDS: magnesium Cl slow-release 64mg tablet PO PRN ×2 (07:41→20:42)
[2018-08-25] MEDS: lactose-reduced food (Ensure Enlive) - 237ml bottle PO SCH ×3 (08:00→18:00)
[2018-08-25] MEDS: Protein Smoothie (high protein) 240ml (8oz) cup PO SCH ×3 (08:00→18:04)
[2018-08-25] MEDS: K and/or MAG REPLACEMENT MC SCH (08:00)
[2018-08-25] MEDS: metroNIDAZOLE-Flagyl 500mg/NS 100 ML IV SCH ×2 (08:10→16:03)
[2018-08-25 11:00] VITALS: BP 141/66
[2018-08-25 18:00] VITALS: BP 139/65
[2018-08-26] VITALS: BP 160/69
[2018-08-26] MEDS: metroNIDAZOLE-Flagyl 500mg/NS 100 ML IV SCH ×4 (00:06→23:19)
[2018-08-26] MEDS: lisinopril 10 MG tablet PO PRN (00:55)
[2018-08-26 01:36] VITALS: BP 149/77
[2018-08-26 05:29] LABS: BASOPHILS # (AUTO) 0.1 X10'3 (0-0.2); BASOPHILS % (AUTO) 0.5 % (0-1); EOSINOPHILS # (AUTO) 0.3 X10'3 (0-0.9); EOSINOPHILS % (AUTO) 2.7 % (0-6); HEMATOCRIT 25.3 % (35.0-45.0); HEMOGLOBIN 8.2 g/dl (12.0-16.0); LYMPHOCYTES # (AUTO) 1.2 X10'3 (1.1-4.8); LYMPHOCYTES % (AUTO) 10.8 % (21-51); MEAN CORPUSCULAR HEMOGLOBIN 29.8 PG (27.0-31.0); MEAN CORPUSCULAR HGB CONC 32.4 % (33.0-36.5); MEAN CORPUSCULAR VOLUME 91.8 FL (78-98); MEAN PLATELET VOLUME 9.3 FL (7.4-10.4); MONOCYTES # (AUTO) 0.9 X10'3 (0-0.9); MONOCYTES % (AUTO) 8.1 % (2-12); NEUTROPHILS # (AUTO) 8.6 X10'3 (1.8-7.7); NEUTROPHILS % (AUTO) 77.9 % (42-75); PLATELET COUNT 641 X10'3 (140-440); RED BLOOD COUNT 2.76 X10'6 (4.20-5.60); RED CELL DISTRIBUTION WIDTH 17.4 % (11.5-14.5)
[2018-08-26 06:08] LABS: ALBUMIN 1.4 G/DL (3.4-5.0); ANION GAP 4 (8-16); BLOOD UREA NITROGEN 4 MG/DL (7-18); BUN/CREATININE RATIO 10.5 (6.6-38.0); CHLORIDE 98 MMOL/L (99-107); CREATININE 0.38 MG/DL (0.40-0.90); GLUCOSE 119 MG/DL (70-104); POTASSIUM 3.4 MMOL/L (3.5-5.1); SODIUM 134 MMOL/L (135-145); TOTAL CARBON DIOXIDE 32.3 MMOL/L (24-32); eGFR > 90 ML/MIN
[2018-08-26 07:00] VITALS: BP 156/65
[2018-08-26] MEDS: lactose-reduced food (Ensure Enlive) - 237ml bottle PO SCH ×3 (08:00→18:00)
[2018-08-26] MEDS: K and/or MAG REPLACEMENT MC SCH (08:00)
[2018-08-26] MEDS: vitamin D (cholecalciferol) 1,000 unit tablet PO SCH (08:13)
[2018-08-26] MEDS: lactobacillus rhamnosus 10,000 MMU CELLS/CAPSULE PO SCH ×2 (08:13→19:46)
[2018-08-26] MEDS: pantoprazole 40mg Tablet.DR PO SCH (08:13)
[2018-08-26] MEDS: FLUoxetine 20mg capsule PO SCH (08:13)
[2018-08-26] MEDS: enoxaparin 60mg/0.6ml syringe SUBCUT SCH (08:13)
[2018-08-26] MEDS: loperamide 2mg capsule PO PRN (08:16)
[2018-08-26] MEDS: atenolol 50mg tablet PO SCH ×2 (08:16→19:45)
[2018-08-26] MEDS: Protein Smoothie (high protein) 240ml (8oz) cup PO SCH ×3 (08:17→18:11)
[2018-08-26] MEDS: CefTRIAXone 2gm/D5W 50ml 50 ML IV SCH (09:39)
[2018-08-26 11:00] VITALS: BP 148/67
[2018-08-26] MEDS: potassium Cl oral solution 20 MEQ/15 ML PO PRN ×3 (11:24→23:18)
[2018-08-26] MEDS: HYDROcodone/acetaminophen 5mg/325mg tablet PO PRN ×2 (11:25→23:19)
[2018-08-26 18:00] VITALS: BP 125/51
[2018-08-26] MEDS: apixaban 5mg tablet PO SCH (19:44)
[2018-08-27] VITALS: BP 158/75
[2018-08-27 05:12] LABS: BASOPHILS # (AUTO) 0.1 X10'3 (0-0.2); BASOPHILS % (AUTO) 1.1 % (0-1); EOSINOPHILS # (AUTO) 0.2 X10'3 (0-0.9); EOSINOPHILS % (AUTO) 2.2 % (0-6); HEMATOCRIT 25.2 % (35.0-45.0); HEMOGLOBIN 8.1 g/dl (12.0-16.0); LYMPHOCYTES # (AUTO) 1.1 X10'3 (1.1-4.8); LYMPHOCYTES % (AUTO) 11.1 % (21-51); MEAN CORPUSCULAR HEMOGLOBIN 29.7 PG (27.0-31.0); MEAN CORPUSCULAR HGB CONC 32.3 % (33.0-36.5); MEAN PLATELET VOLUME 9.1 FL (7.4-10.4); MONOCYTES # (AUTO) 0.9 X10'3 (0-0.9); MONOCYTES % (AUTO) 9.4 % (2-12); NEUTROPHILS # (AUTO) 7.3 X10'3 (1.8-7.7); NEUTROPHILS % (AUTO) 76.2 % (42-75); PLATELET COUNT 711 X10'3 (140-440); RED BLOOD COUNT 2.74 X10'6 (4.20-5.60); WHITE BLOOD COUNT 9.6 X10'3 (4.5-11.0)
[2018-08-27 05:22] LABS: ALBUMIN 1.5 G/DL (3.4-5.0); ANION GAP 3 (8-16); BLOOD UREA NITROGEN 3 MG/DL (7-18); BUN/CREATININE RATIO 7.1 (6.6-38.0); CALCIUM 7.9 MG/DL (8.5-10.1); CHLORIDE 99 MMOL/L (99-107); CREATININE 0.42 MG/DL (0.40-0.90); GLUCOSE 118 MG/DL (70-104); POTASSIUM 3.9 MMOL/L (3.5-5.1); SODIUM 135 MMOL/L (135-145); TOTAL CARBON DIOXIDE 32.8 MMOL/L (24-32); eGFR > 90 ML/MIN
[2018-08-27 07:22] VITALS: BP 164/84
[2018-08-27] MEDS: lactose-reduced food (Ensure Enlive) - 237ml bottle PO SCH ×2 (08:00→13:00)
[2018-08-27] MEDS: K and/or MAG REPLACEMENT MC SCH (08:00)
[2018-08-27] MEDS: vitamin D (cholecalciferol) 1,000 unit tablet PO SCH (08:33)
[2018-08-27] MEDS: CefTRIAXone 2gm/D5W 50ml 50 ML IV SCH (08:33)
[2018-08-27] MEDS: FLUoxetine 20mg capsule PO SCH (08:33)
[2018-08-27] MEDS: atenolol 50mg tablet PO SCH (08:34)
[2018-08-27] MEDS: lactobacillus rhamnosus 10,000 MMU CELLS/CAPSULE PO SCH (08:34)
[2018-08-27] MEDS: apixaban 5mg tablet PO SCH (08:35)
[2018-08-27] MEDS: pantoprazole 40mg Tablet.DR PO SCH (08:35)
[2018-08-27] MEDS: Protein Smoothie (high protein) 240ml (8oz) cup PO SCH ×2 (08:46→13:00)
[2018-08-27] MEDS: metroNIDAZOLE-Flagyl 500mg/NS 100 ML IV SCH (09:35)
[2018-08-27] MEDS: HYDROcodone/acetaminophen 5mg/325mg tablet PO PRN (10:45)
[2018-08-27 11:47] VITALS: BP 160/89
[2018-08-27] MEDS ORDERED: HYDR-4383 PO (13:13)
[2018-08-27] MEDS ORDERED: APIX5TAB3 PO ×2 (13:13)
== END 2018-08-27 16:38 | disposition home health service (06) | DRG 871 ==
LOC: ER 20:44 → ED HOLD 22:56 → SUR 3N 08-13 00:49 → PACU 08-13 18:03 → CICU 2S 08-13 18:38 → SUR 3N 08-16 21:00
PROVIDERS: ADMIT Hospitalist; ATTEND Family Medicine
PROC: 3E1M38Z Irrigation of Peritoneal Cavity using Irrigating Substance, Percutaneous Approach (ICD-10-PCS; 2018-08-13)
PROC: BW211ZZ Computerized Tomography (CT Scan) of Abdomen and Pelvis using Low Osmolar Contrast (ICD-10-PCS; principal; 2018-08-18)
PROC: BW251ZZ Computerized Tomography (CT Scan) of Chest, Abdomen and Pelvis using Low Osmolar Contrast (ICD-10-PCS; 2018-08-22)
PROC: 02HV33Z Insertion of Infusion Device into Superior Vena Cava, Percutaneous Approach (ICD-10-PCS; 2018-08-25)
PROC: B548ZZA Ultrasonography of Superior Vena Cava, Guidance (ICD-10-PCS; 2018-08-25)
DX: A41.9 Sepsis, unspecified organism (principal); K68.12 Psoas muscle abscess; E43 Unspecified severe protein-calorie malnutrition; I26.99 Other pulmonary embolism without acute cor pulmonale; K68.19 Other retroperitoneal abscess; E87.1 Hypo-osmolality and hyponatremia; N17.9 Acute kidney failure, unspecified; N13.30 Unspecified hydronephrosis; I82.4Z1 Acute embolism and thrombosis of unspecified deep veins of right distal lower extremity; F32.9 Major depressive disorder, single episode, unspecified; B96.20 Unspecified Escherichia coli [E. coli] as the cause of diseases classified elsewhere; D64.9 Anemia, unspecified; I12.9 Hypertensive chronic kidney disease with stage 1 through stage 4 chronic kidney disease, or unspecified chronic kidney disease; N18.3 Chronic kidney disease, stage 3 (moderate); E78.5 Hyperlipidemia, unspecified; E87.6 Hypokalemia; J44.9 Chronic obstructive pulmonary disease, unspecified; F41.9 Anxiety disorder, unspecified; Z60.2 Problems related to living alone; J45.909 Unspecified asthma, uncomplicated; K21.9 Gastro-esophageal reflux disease without esophagitis; Z88.2 Allergy status to sulfonamides; Z88.8 Allergy status to other drugs, medicaments and biological substances; Z79.899 Other long term (current) drug therapy; Z79.01 Long term (current) use of anticoagulants; Z87.891 Personal history of nicotine dependence; Z68.20 Body mass index [BMI] 20.0-20.9, adult
CPT/HCPCS: 36415; 36569; 71275; 74177; 76937; 80048; 80053; 80202; 81001; 81003; 82570; 82948; 83735; 83880; 83930; 83935; 84100; 84132; 84133; 84145; 84156; 84300; 84550; 85025; 85610; 85730; 87040; 87070; 87075; 87076; 87077; 87185; 87207; 87324; 87449; 93005; 93970; 94640; 94760; 96374; 96375; 96376; 97110; 97116; 97162; 97530; 99285; A6251; A7000; C1758; G0378; J0696; J1170; J1650; J1940; J2175; J2270; J2405; J2543; J2704; J2710; J3010; J3370; J3475; J3490; J7030; J7120; Q9963; Q9967

== ENCOUNTER 2018-09-27 06:16 | Inpatient (IN) | payer MEDICARE, BC ==
[~2018-09-27] VITALS: Ht 170.2 cm; Wt 57.3 kg
[~2018-09-27 06:16] MED LIST: APIX5TAB3 PO; ATEN-169 PO; CHOL50004 PO; CYAN100070 PO; FLUO10CA28 PO; FLUT9.9S; HYDR-4383 PO; LORA0.5T PO; OMEP40CA37 PO; PRAV10TA39 PO; etomidate 2mg/ml inj. ONE
[2018-09-27] MEDS ORDERED: dexamethasone sod phosphate 10mg/ml inj IV STA (06:32)
[2018-09-27] MEDS ORDERED: ipratropium/albuterol 3ml nebule NEB ONE (06:35)
--- NOTE | 2018-09-27 06:42 | NUR ---
PT DAUGHTER BROUGHT BACK TO ROOM, CHEST XRAY BEING PERFORMED PER ORDERS NOW, AND RT WAITING AT BEDSIDE TO PERFORM BREATHING TREATMENT PER ORDERS ALSO. PT REPORTS IMPROVEMENT OF WORK OF BREATHING SINCE RECEIVING BREATHING TREATMENT FROM EMS.
--- NOTE | 2018-09-27 06:46 | NUR ---
RT ADMINISTERING BREATHING TREATMENT NOW PER ORDERS.
--- NOTE | 2018-09-27 06:53 | NUR ---
LAB AT BEDSIDE DRAWING PER ORDERS NOW.
[2018-09-27] MEDS ORDERED: normal saline 1000ML IV soln IV ONE (07:05)
[2018-09-27] MEDS ORDERED: vancomycin/NS 1 GM ADD-VANTAGE 250 ML IV ONE (07:05)
[2018-09-27] MEDS ORDERED: piperacillin/tazo 3.375gm/50ml 50 ML IV ONE (07:05)
--- NOTE | 2018-09-27 07:18 | NUR ---
RECEIVED VERBAL ORDER FROM DR LEIJA THAT PICC LINE IS PLACED PER CHEST XRAY AND OK TO USE FOR MEDICATION AND BLOOD DRAW, LABS DRAWN FROM PICC LINE LAB UNABLE TO OBTAIN VIA STANDARD BLOOD DRAW ATTEMPT.
[2018-09-27 07:39] LABS: BASOPHILS # (AUTO) 0.1 X10'3 (0-0.2); BASOPHILS % (AUTO) 0.7 % (0-1); EOSINOPHILS % (AUTO) 0 % (0-6); HEMATOCRIT 32.1 % (35.0-45.0); HEMOGLOBIN 10.7 g/dl (12.0-16.0); LYMPHOCYTES # (AUTO) 0.5 X10'3 (1.1-4.8); LYMPHOCYTES % (AUTO) 4.8 % (21-51); MEAN CORPUSCULAR HEMOGLOBIN 30.9 PG (27.0-31.0); MEAN CORPUSCULAR HGB CONC 33.3 % (33.0-36.5); MEAN CORPUSCULAR VOLUME 92.6 FL (78-98); MEAN PLATELET VOLUME 9.5 FL (7.4-10.4); MONOCYTES # (AUTO) 0.3 X10'3 (0-0.9); MONOCYTES % (AUTO) 2.4 % (2-12); NEUTROPHILS # (AUTO) 9.8 X10'3 (1.8-7.7); NEUTROPHILS % (AUTO) 92.1 % (42-75); PLATELET COUNT 269 X10'3 (140-440); RED BLOOD COUNT 3.46 X10'6 (4.20-5.60); WHITE BLOOD COUNT 10.7 X10'3 (4.5-11.0)
--- NOTE | 2018-09-27 07:42 | NUR ---
STARTED IV FLUIDS AND IV ZOSYN PER ORDERS VIA PT PICC LINE, DISCUSSED ADORNO CATHETER ORDERED BY DR LEIJA AND DAUGHTER WOULD LIKE TO TRY BEDSDIE COMMODE, ASSISTED PT TO BEDSIDE COMMODE, PER PT REQUESTED PLACED BLANKET OVER SHOULDERS AND GAVE PT SOME PRIVACY TO SEE IF SHE CAN URINATE, PLACED CALL LIGHT IN REACH OF PT AND PT DAUGHTER WHEN PT IS FINISHED ON COMMODE.
[2018-09-27 08:08] LABS: ALBUMIN 2.4 G/DL (3.4-5.0); ALBUMIN/GLOBULIN RATIO 0.7 (1.1-1.5); ALKALINE PHOSPHATASE 300 IU/L (46-116); ANION GAP 13 (8-16); BILIRUBIN,TOTAL 0.8 MG/DL (0.1-1.0); BLOOD UREA NITROGEN 41 MG/DL (7-18); BUN/CREATININE RATIO 36.9 (6.6-38.0); CHLORIDE 85 MMOL/L (99-107); CREATININE 1.11 MG/DL (0.40-0.90); GLUCOSE 104 MG/DL (70-104); POTASSIUM 4.2 MMOL/L (3.5-5.1); TOTAL CARBON DIOXIDE 19.9 MMOL/L (24-32); eGFR 49 ML/MIN
--- NOTE | 2018-09-27 08:14 | NUR ---
PT WAS UNABLE TO URINATE, GOT BACK INTO [facility] UNASSISTED AND THEN DAUGHTER STATES SHE ASSISTED LIFTING HER LEGS ONTO [facility]
--- NOTE | 2018-09-27 08:15 | NUR ---
PT ZOSYN COMPLETED, STARTED VANCO IV PER ORDERS NOW, PT FIRST LITER NS PLACED ON PRESSURE BAG, LAB AT BEDSIDE DRAWING SECOND BLOOD CULTURE AND PROCALCITONIN PER ORDERS NOW.
[2018-09-27 08:17] LABS: SODIUM 118 MMOL/L (135-145)
[2018-09-27] MEDS ORDERED: aspirin 81mg tab.chew PO ONE (08:20)
[2018-09-27 08:54] LABS: ALANINE AMINOTRANSFERASE 1633 U/L (12-78); ASPARTATE AMINO TRANSFERASE 4578 U/L (10-37)
[2018-09-27 09:09] LABS: CLARITY,URINE SLIGHTLY CLOUDY (Clear); COLOR,URINE YELLOW (Yellow); GLUCOSE, URINE NEGATIVE (Neg); KETONES,URINE NEGATIVE (Neg); LEUKOCYTE ESTERASE ,URINE NEGATIVE (Neg); NITRITES, URINE NEGATIVE (Neg); OCCULT BLOOD,URINE SMALL (Neg); PH,URINE 5.5 (4.8-8.0); PROTEIN,URINE 100 mg/dl (Neg); UROBILINOGEN,URINE 0.2 E.U/dL (0.2-1.0)
[2018-09-27 09:14] LABS: LARGE PLATELETS FEW; PLATELET ESTIMATE NORMAL
[2018-09-27 09:14] LABS: UA COLLECTION TYPE STRAIGHT CATH
[2018-09-27 09:22] LABS: HYALINE CASTS >30 /LPF (NEGATIVE); MUCUS STRANDS MANY /LPF (Neg); SQUAMOUS EPITHELIAL CELL,UR FEW /LPF (FEW); TRANSITIONAL EPI CELLS,URINE MODERATE /HPF
[2018-09-27 09:23] LABS: BACTERIA,URINE FEW /HPF (Neg); RBC,URINE 0-2 /HPF (0-2); WBC,URINE 0-4 /HPF (0-4)
[2018-09-27 09:24] LABS: AMORPHOUS URATES 3+; RENAL CELLS, URINE FEW /HPF
[2018-09-27] MEDS ORDERED: FLUO20CA39 PO (09:36)
--- NOTE | 2018-09-27 11:50 | NUR ---
DR LEIJA INFORMED OF TRENDING DOWN BLOOD PRESSURE AND INCREASED HEART RATE, DR LEIJA STATES HOSPITALIST WILL NOT ADMIT AND HE HAS CALL OUT TO MEDICAL LABORATORY TECHNICIAN TO ADMIT PT TO ICU.
[2018-09-27] MEDS ORDERED: rocuronium 10mg/ml inj IV ONE (12:00)
[2018-09-27] MEDS ORDERED: normal saline 1000ML IV soln IVB ONE (14:00)
[2018-09-27] MEDS: K, MAG and/or Phos replacement - Verify level? MC SCH (14:05)
[2018-09-27] MEDS ORDERED: sodium phosphate inj. 30 MMOL in dextrose 5%-water 250 ML IV PRN (14:05)
[2018-09-27] MEDS ORDERED: magnesium 4gm in 100ml NS 100 ML IV PRN (14:05)
[2018-09-27] MEDS ORDERED: magnesium Cl slow-release 64mg tablet PO PRN (14:05)
[2018-09-27] MEDS ORDERED: potassium Cl 20 mEq SR tablet PO PRN ×2 (14:05)
[2018-09-27] MEDS ORDERED: sodium phosphate inj. 15 MMOL in dextrose 5%-water 150 ML IV PRN (14:05)
[2018-09-27] MEDS ORDERED: Neutra Phos packet PO PRN (14:05)
[2018-09-27 14:51] LABS: ALBUMIN 2.3 G/DL (3.4-5.0); ALBUMIN/GLOBULIN RATIO 0.7 (1.1-1.5); ALKALINE PHOSPHATASE 281 IU/L (46-116); ANION GAP 13 (8-16); BILIRUBIN,TOTAL 0.7 MG/DL (0.1-1.0); BLOOD UREA NITROGEN 37 MG/DL (7-18); BUN/CREATININE RATIO 43.5 (6.6-38.0); CALCIUM 8.1 MG/DL (8.5-10.1); CHLORIDE 88 MMOL/L (99-107); CREATININE 0.85 MG/DL (0.40-0.90); GLUCOSE 119 MG/DL (70-104); POTASSIUM 3.9 MMOL/L (3.5-5.1); SODIUM 122 MMOL/L (135-145); TOTAL CARBON DIOXIDE 20.6 MMOL/L (24-32); TOTAL PROTEIN 5.8 G/DL (6.4-8.2); eGFR 67 ML/MIN
[2018-09-27 14:53] LABS: ACETAMINOPHEN < 2.0 UG/ML (10-30); LIPASE 141 U/L (73-393); MAGNESIUM 1.6 MG/DL (1.5-2.4)
[2018-09-27 15:06] LABS: ALANINE AMINOTRANSFERASE 2065 U/L (12-78); ASPARTATE AMINO TRANSFERASE 5725 U/L (10-37)
[2018-09-27 15:11] LABS: D-DIMER 2.05 MG/L FEU (0-0.50); INR 2.6 INR; PARTIAL THROMBOPLASTIN TIME 41 SECONDS (22-32); PROTHROMBIN TIME 25.5 SECONDS (9.0-12.0)
[2018-09-27 15:38] LABS: PLATELET COUNT 214 X10'3 (140-440)
[2018-09-27 17:00] VITALS: BP 111/65
[2018-09-27] MEDS: sodium chloride 0.45% 1,000 ML IV SCH (17:00)
--- NOTE | 2018-09-27 17:00 | NUR ---
received report from petra márquez via telephone. received now via [employer]. vs stable, family member x 2 in.
[2018-09-27] MEDS: piperacillin/tazo 3.375gm/50ml 50 ML IV SCH (18:03)
--- NOTE | 2018-09-27 18:19 | NUR ---
Problems reprioritized. Patient report given, questions answered & plan of care reviewed with petra riggins.
--- NOTE | 2018-09-27 18:56 | NUR ---
Patient in room PCU 3028. I have received report from Bryan EDMONDSON and had the opportunity to ask questions and assume patient care. Pt is currently sleeping. Does not appear to be in any distress. She is on 2 L NC. Zosyn is currently running at 50. Per report came up to PCU at 1700. No physical assessment done. Pics needed. Per day shift aide, coccyx is red, optifoam placed.
[2018-09-27 19:00] VITALS: BP 111/65
[2018-09-27] MEDS: apixaban 5mg tablet PO SCH (22:51)
[2018-09-27 23:00] VITALS: BP 129/85
[2018-09-28] VITALS (10 sets, daily range): BP systolic 97–141; BP diastolic 51–87
[2018-09-28] MEDS: piperacillin/tazo 3.375gm/50ml 50 ML IV SCH ×3 (00:44→15:58)
--- NOTE | 2018-09-28 01:21 | NUR ---
Pt is currently having anxiety and requesting for ativan. She normally takes 0.5 mg Q12h PRN anxiety at home. Called Evelin Hobson NP who is addressing it and per telephone said she would continue pt's Ativan.
[2018-09-28] MEDS: LORazepam 0.5 MG tablet PO PRN (01:27)
[2018-09-28] MEDS: sodium chloride 0.45% 1,000 ML IV SCH ×2 (03:21→05:43)
[2018-09-28] MEDS ORDERED: hydrocortisone acetate 25mg rectal suppository RC PRN (03:45)
--- NOTE | 2018-09-28 03:46 | NUR ---
Note from when pt was in ED: RECEIVED VERBAL ORDER FROM DR LEIJA THAT PICC LINE IS PLACED PER CHEST XRAY AND OK TO USE FOR MEDICATION AND BLOOD DRAW, LABS DRAWN FROM PICC LINE LAB UNABLE TO OBTAIN VIA STANDARD BLOOD DRAW ATTEMPT. Will use line to draw this mornings labs
--- NOTE | 2018-09-28 03:46 | NUR ---
Pt has Hx of arrythmias, pt unable to elaborate other than, "I was told I skip a beat sometimes." Pt does not see a job developer outpatient. Per telephone supervisor, pt having lots of ectopy. Pt has PICC line on admission, telephone supervisor explained that ectopy can be PICC line induced.
--- NOTE | 2018-09-28 03:47 | NUR ---
Pt has bloody stool. She has active hemorrhoids that are bleeding. Spoke with Evelin Gates NP about this. Recommends to continue monitoring.
[2018-09-28 06:09] LABS: PARTIAL THROMBOPLASTIN TIME 30 SECONDS (22-32); PROTHROMBIN TIME 28.8 SECONDS (9.0-12.0)
--- NOTE | 2018-09-28 06:15 | NUR ---
Pt is receiving 1/2 NS at 75, requests to get up to commode but appears too weak to continue doing so. Will use bedpan moving forward. She needs a daily weight. There is a bed in that she could switch to that will also weigh her.
[2018-09-28 06:22] LABS: ALBUMIN 2.3 G/DL (3.4-5.0); ALBUMIN/GLOBULIN RATIO 0.6 (1.1-1.5); ALKALINE PHOSPHATASE 371 IU/L (46-116); ANION GAP 14 (8-16); BILIRUBIN,TOTAL 1.2 MG/DL (0.1-1.0); BLOOD UREA NITROGEN 35 MG/DL (7-18); BUN/CREATININE RATIO 43.2 (6.6-38.0); CALCIUM 8.1 MG/DL (8.5-10.1); CHLORIDE 91 MMOL/L (99-107); CREATININE 0.81 MG/DL (0.40-0.90); GLUCOSE 84 MG/DL (70-104); MAGNESIUM 1.7 MG/DL (1.5-2.4); PHOSPHORUS 3.4 MG/DL (2.3-4.5); POTASSIUM 4.6 MMOL/L (3.5-5.1); SODIUM 125 MMOL/L (135-145); TOTAL CARBON DIOXIDE 19.8 MMOL/L (24-32); TOTAL PROTEIN 5.9 G/DL (6.4-8.2); eGFR 71 ML/MIN
[2018-09-28 06:34] LABS: ALANINE AMINOTRANSFERASE 2129 U/L (12-78); ASPARTATE AMINO TRANSFERASE 5114 U/L (10-37)
--- NOTE | 2018-09-28 06:40 | NUR ---
Problems reprioritized. Patient report given, questions answered & plan of care reviewed with Bryan RN.
--- NOTE | 2018-09-28 06:43 | NUR ---
Patient in room PCU 3028. I have received report from DELVIS ALOSNO and had the opportunity to ask questions and assume patient care.
[2018-09-28 07:11] LABS: HEMATOCRIT 35.7 % (35.0-45.0); HEMOGLOBIN 11.9 g/dl (12.0-16.0); MEAN CORPUSCULAR HEMOGLOBIN 31.1 PG (27.0-31.0); MEAN CORPUSCULAR HGB CONC 33.4 % (33.0-36.5); MEAN CORPUSCULAR VOLUME 93.2 FL (78-98); MEAN PLATELET VOLUME 10.6 FL (7.4-10.4); PLATELET COUNT 275 X10'3 (140-440); RED BLOOD COUNT 3.84 X10'6 (4.20-5.60); WHITE BLOOD COUNT 14.4 X10'3 (4.5-11.0)
[2018-09-28 07:58] LABS: TOTAL CELLS COUNTED 100
[2018-09-28 07:59] LABS: ANISOCYTOSIS 1+; GIANT PLATELET FEW; HYPOCHROMASIA 1+; LARGE PLATELETS FEW; NUCLEATED RED BLOOD CELLS 2 /100WBC (0-0); PLATELET ESTIMATE NORMAL
[2018-09-28 08:00] LABS: BURR CELLS 1+; POLYCHROMASIA 1+; TARGET CELLS 1+; TOXIC VACUOLATION 1+
[2018-09-28] MEDS: K, MAG and/or Phos replacement - Verify level? MC SCH (08:00)
[2018-09-28] MEDS ORDERED: atenolol 50mg tablet PO SCH (08:00)
[2018-09-28] MEDS: pantoprazole 40mg Tablet.DR PO SCH (08:07)
[2018-09-28] MEDS: apixaban 5mg tablet PO SCH ×2 (08:09→21:26)
[2018-09-28] MEDS: FLUoxetine 20mg capsule PO SCH (08:09)
--- NOTE | 2018-09-28 12:04 | NUR ---
PAGED DR. FISH, WAS ON 2L/NC AND WHEN PT APPROACHED, SAT WAS 85%, 4L/NC 91-94 %./ COARSE BREATH SOUND WITH DX OF PNEUMONIA, SOB WITH ANY ACTIVITY. HAS NO RT ORDERS. STATES"I WILL ORDER SOME RESPIRATORY ORDERS".
[2018-09-28] MEDS ORDERED: ipratropium/albuterol 3ml nebule NEB PRN (12:05)
[2018-09-28] MEDS ORDERED: Protein Smoothie (high protein) 240ml (8oz) cup PO SCH (13:00)
--- NOTE | 2018-09-28 15:01 | NUR ---
Malnutrition consult: Pt admit w/ bilateral PNA hx ruptures appendix s/p surgery last admit 08/15. EMR reports pt too weak at home to even use bathroom and possible cholangitis per MD note. Per MD note pt tongue very dry. Na up to 125 from 118 on admit w/ no diarrhea noted. Currently on full liquid diet w/ 0% PO. Pt/daughters seen by RD; daughters feeding pt liquids and share she tolerates better than solids. Also, pt likes strawberry high protein smoothies and uses ensures at home per daughters. Jello TID, strawberry high protein smoothie TID, and ensure high protein WL added to meals. notified; KALIE d/w dietary. RD d/w RN that pt likely needs feeder; RN aware. Current wt pt stated though not communicating at this time and daughters offer no specifics; low wt evident. Given pt visible severe cachexia w/ little fat/muscle mass, BLE 3+ edema, open sacral wound, and low PO hx pt qualifies for severe malnutrition at this time. MD notified. Will monitor for ONS acceptance. Rec: 1. continue full liquids per pt preference 2. strawberry high pro smoothie/jello TIDWM, ensure high protein WL 3. weekly wts 4. feeder w/ meals 5. MVI for wounds once PO improves Addendum: 09/28/18 at [address] Amended: Links added.
[2018-09-28] MEDS: ipratropium/albuterol 3ml nebule NEB SCH ×2 (16:03→20:17)
[2018-09-28 17:26] LABS: ABG BASE EXCESS -7.3 mmol/L (-2.0-3.0); ABG HCO3 20.3 mmol/L (22.0-26.0); ABG OXYGEN SATURATION 88.9 % (95-98); ABG PCO2 (T) 48.8 mmHg (32.0-45.0); ABG PH (T) 7.235 (7.350-7.450); ABG PO2 (T) 63.6 mmHg (83-108); FCOHb 0.1 % (0.5-1.5); FLOW 4 L/min; FMetHb 0.3 % (0.3-1.12); FO2Hb 88.5 % (94-100); PATIENT TEMPERATURE 36.7; TOTAL HEMOGLOBIN 12.2 G/dl (12.0-16.0)
[2018-09-28] MEDS: normal saline 1000ml 1,000 ML IV SCH (17:32)
--- NOTE | 2018-09-28 17:55 | NUR ---
REPORT CALLED TO ADAM Coronado RN ICU.
--- NOTE | 2018-09-28 18:00 | NUR ---
received pt from Bryan RN from PCU, pt is arousable on bipap, opens eyes spontaneously, follows verbal commands, temp sensing ace placed under aseptic technique. ST with frequent PACS and PVCS. VSS. family at bedside, updated on plan of care.
--- NOTE | 2018-09-28 18:15 | NUR ---
TRANSFERRED TO ICU VIA BED ON BIPAP 100% FI02.
--- NOTE | 2018-09-28 18:30 | NUR ---
Problems reprioritized. Patient report given, questions answered & plan of care reviewed with DELVIS Mcnair.
--- NOTE | 2018-09-28 18:55 | NUR ---
ASSUMED CARE , PATIENT AWAKE ON BIPAP 18/5 FIO2 OF 80% , ALERT SEEMS WEEK , ADORNO PLACED , TEMP 37.6 , DENIES PAIN , DAUGHTER HERE DOES NOT WANT TO LEAVE ROOM WITH THE PATIENT , DOING STAT ECHO AT THIS TIME , VITALS STABLE , SEND LABS INCLUDING RAPID FLU .
[2018-09-28 19:15] LABS: CLARITY,URINE SLIGHTLY CLOUDY (Clear); COLOR,URINE YELLOW (Yellow); GLUCOSE, URINE NEGATIVE (Neg); KETONES,URINE NEGATIVE (Neg); LEUKOCYTE ESTERASE ,URINE NEGATIVE (Neg); NITRITES, URINE NEGATIVE (Neg); OCCULT BLOOD,URINE SMALL (Neg); PROTEIN,URINE 30 mg/dl (Neg); UROBILINOGEN,URINE 0.2 E.U/dL (0.2-1.0)
[2018-09-28 19:21] LABS: UA COLLECTION TYPE FOLEY CATH
[2018-09-28 19:30] LABS: HYALINE CASTS 0-3 /LPF (NEGATIVE)
[2018-09-28 19:31] LABS: AMORPHOUS URATES 3+; BACTERIA,URINE FEW /HPF (Neg); RBC,URINE 0-2 /HPF (0-2); SQUAMOUS EPITHELIAL CELL,UR MODERATE /LPF (FEW); WBC,URINE 0-4 /HPF (0-4)
[2018-09-28 19:54] LABS: OSMOLALITY UA 364 MOSM/K (50-1400)
[2018-09-28 20:15] LABS: ABG BASE EXCESS -7.5 mmol/L (-2.0-3.0); ABG HCO3 18.8 mmol/L (22.0-26.0); ABG OXYGEN SATURATION 97.6 % (95-98); ABG PCO2 (T) 42.1 mmHg (32.0-45.0); ABG PO2 (T) 113.9 mmHg (83-108); ALLEN'S TEST Positive; FCOHb 0.3 % (0.5-1.5); FMetHb 0.4 % (0.3-1.12); FO2Hb 96.9 % (94-100); PATIENT TEMPERATURE 37.4; TOTAL HEMOGLOBIN 11.4 G/dl (12.0-16.0)
[2018-09-28 20:21] LABS: CREATININE,URINE RANDOM 48.2 MG/DL; SODIUM,URINE RANDOM < 15 MEQ/L
[2018-09-28 20:56] LABS: UA EOSINOPHILS NO EOS /HPF
[2018-09-28] MEDS: lactobacillus rhamnosus 10,000 MMU CELLS/CAPSULE PO SCH (21:26)
[2018-09-28] MEDS ORDERED: oseltamivir phos 75mg capsule PO ONE (22:55)
[2018-09-29] VITALS (24 sets, daily range): BP systolic 87–144; BP diastolic 40–96
[2018-09-29] MEDS: piperacillin/tazo 3.375gm/50ml 50 ML IV SCH ×3 (00:48→16:35)
[2018-09-29] MEDS: normal saline 1000ml 1,000 ML IV SCH ×2 (02:48→12:48)
[2018-09-29 03:03] LABS: INR 3.3 INR; PROTHROMBIN TIME 31.3 SECONDS (9.0-12.0)
[2018-09-29] MEDS: LORazepam 0.5 MG tablet PO PRN (03:09)
[2018-09-29 03:16] LABS: LYMPHOCYTES # (AUTO) 0.3 X10'3 (1.1-4.8); RED BLOOD COUNT 3.23 X10'6 (4.20-5.60); WHITE BLOOD COUNT 8.5 X10'3 (4.5-11.0)
[2018-09-29 03:17] LABS: BASOPHILS % (AUTO) 0 % (0-1); EOSINOPHILS # (AUTO) 0.1 X10'3 (0-0.9); EOSINOPHILS % (AUTO) 0.7 % (0-6); HEMATOCRIT 29.6 % (35.0-45.0); HEMOGLOBIN 9.9 g/dl (12.0-16.0); LYMPHOCYTES % (AUTO) 3.4 % (21-51); MEAN CORPUSCULAR HEMOGLOBIN 30.5 PG (27.0-31.0); MEAN CORPUSCULAR HGB CONC 33.3 % (33.0-36.5); MEAN CORPUSCULAR VOLUME 91.7 FL (78-98); MEAN PLATELET VOLUME 10.3 FL (7.4-10.4); MONOCYTES # (AUTO) 0.1 X10'3 (0-0.9); MONOCYTES % (AUTO) 1.5 % (2-12); NEUTROPHILS % (AUTO) 94.4 % (42-75); PLATELET COUNT 195 X10'3 (140-440); RED CELL DISTRIBUTION WIDTH 16.5 % (11.5-14.5)
[2018-09-29] MEDS: ipratropium/albuterol 3ml nebule NEB SCH ×4 (03:27→21:14)
[2018-09-29 03:28] LABS: ALBUMIN 1.7 G/DL (3.4-5.0); ALBUMIN/GLOBULIN RATIO 0.6 (1.1-1.5); ALKALINE PHOSPHATASE 249 IU/L (46-116); ANION GAP 10 (8-16); BLOOD UREA NITROGEN 41 MG/DL (7-18); BUN/CREATININE RATIO 40.2 (6.6-38.0); CHLORIDE 99 MMOL/L (99-107); CREATININE 1.02 MG/DL (0.40-0.90); GLUCOSE 105 MG/DL (70-104); MAGNESIUM 1.4 MG/DL (1.5-2.4); PHOSPHORUS 2.9 MG/DL (2.3-4.5); POTASSIUM 3.6 MMOL/L (3.5-5.1); SODIUM 131 MMOL/L (135-145); TOTAL PROTEIN 4.6 G/DL (6.4-8.2); eGFR 54 ML/MIN
[2018-09-29 04:02] LABS: ALANINE AMINOTRANSFERASE 4619 U/L (12-78); ASPARTATE AMINO TRANSFERASE > 7000 U/L (10-37)
[2018-09-29] MEDS ORDERED: magnesium 2GM in 50ml NS 50 ML IV ONE (04:05)
--- NOTE | 2018-09-29 06:49 | NUR ---
Patient in room CICU 2013. I have received report from DELVIS Mcnair and had the opportunity to ask questions and assume patient care.
[2018-09-29] MEDS ORDERED: pantoprazole 40mg Tablet.DR PO SCH (08:00)
[2018-09-29] MEDS: K, MAG and/or Phos replacement - Verify level? MC SCH (08:00)
[2018-09-29] MEDS: vitamin D (cholecalciferol) 1,000 unit tablet PO SCH (08:50)
[2018-09-29] MEDS: apixaban 5mg tablet PO SCH ×2 (08:50→23:56)
[2018-09-29] MEDS: FLUoxetine 20mg capsule PO SCH (08:50)
[2018-09-29] MEDS: lactobacillus rhamnosus 10,000 MMU CELLS/CAPSULE PO SCH ×2 (08:50→23:56)
[2018-09-29] MEDS: oseltamivir phos 75mg capsule PO SCH ×2 (08:50→23:57)
[2018-09-29] MEDS: cyanocobalamin 500mcg tablet PO SCH (08:51)
[2018-09-29] MEDS: pantoprazole 40mg Tablet.DR PO SCH (08:51)
[2018-09-29] MEDS ORDERED: oseltamivir phos 75mg capsule PO SCH (09:50)
[2018-09-29] MEDS ORDERED: potassium Cl 40MEQ/250ML bag 250 ML IV PRN (11:00)
[2018-09-29] MEDS: potassium Cl 40MEQ/250ML bag 250 ML IV PRN ×2 (11:44→17:36)
--- NOTE | 2018-09-29 11:54 | NUR ---
TF consult: Pt with poor PO intake throughout LOS. Recommend continuous TF of Jevity 1.2 with goal rate of 65 mL/hr to provide total volume of 1560 mL/d, 1872 kcal, 87 g protein, and 1259 mL water. Free water flushes per MD given low Na. Will continue to follow. Malnutrition consult: Pt admit w/ bilateral PNA hx ruptures appendix s/p surgery last admit 08/15. EMR reports pt too weak at home to even use bathroom and possible cholangitis per MD note. Per MD note pt tongue very dry. Na up to 125 from 118 on admit w/ no diarrhea noted. Currently on full liquid diet w/ 0% PO. Pt/daughters seen by RD; daughters feeding pt liquids and share she tolerates better than solids. Also, pt likes strawberry high protein smoothies and uses ensures at home per daughters. Jello TID, strawberry high protein smoothie TID, and ensure high protein WL added to meals. MD notified; RD d/w dietary. RD d/w RN that pt likely needs feeder; RN aware. Current wt pt stated though not communicating at this time and daughters offer no specifics; low wt evident. Given pt visible severe cachexia w/ little fat/muscle mass, BLE 3+ edema, open sacral wound, and low PO hx pt qualifies for severe malnutrition at this time. notified. Will monitor for ONS acceptance. Rec: 1. continue full liquids per pt preference; feeder w/ meals 2. strawberry high pro smoothie/jello TIDWM, ensure high protein WL 3. Continuous TF of Jevity 1.2 with goal rate of 65 mL/hr to begin at 20 mL/hr and advanced by 20 mL q 8hrs to goal rate 4. Additional water flushes per MD given low Na 5. Prealbumin a / 6. daily wt 7. MVI for wounds once PO improves Addendum: 09/29/18 at [address] Amended: Links added.
[2018-09-29 12:00] LABS: MAGNESIUM 2.1 MG/DL (1.5-2.4)
[2018-09-29] MEDS: carVEDilol 3.125mg tablet PO SCH ×2 (12:20→23:56)
[2018-09-29 12:22] LABS: ACETAMINOPHEN 3.4 UG/ML (10-30)
[2018-09-29 12:41] LABS: ABG BASE EXCESS -4.8 mmol/L (-2.0-3.0); ABG HCO3 21.4 mmol/L (22.0-26.0); ABG OXYGEN SATURATION 93.3 % (95-98); ABG PH (T) 7.305 (7.350-7.450); ABG PO2 (T) 76.8 mmHg (83-108); ALLEN'S TEST Positive; FCOHb 0.3 % (0.5-1.5); FMetHb 0.5 % (0.3-1.12); FO2Hb 92.6 % (94-100); MINUTE VOLUME 13 L/min; RESPIRATORY RATE (OBSERVED) 20 b/min; TIDAL VOLUME 650 mL; TOTAL HEMOGLOBIN 12.4 G/dl (12.0-16.0)
--- NOTE | 2018-09-29 14:56 | NUR ---
Just received HFNV from RT. Will attempt to use while placing corpak in hopes pt will tolerate being off bipap temporarily Addendum: 09/29/18 at 1645 by Mary Olvera RN JOY
[2018-09-29 15:08] LABS: HIV ANTIBODY 1&2 RAPID NON-REACTIVE (Neg)
--- NOTE | 2018-09-29 16:44 | NUR ---
Holding coreg due to decreased bp intermittently and awaiting verification of corpak placement in order to administer med through corpak. Will reassess shortly
--- NOTE | 2018-09-29 17:15 | NUR ---
Per Dr. Ang, okay to start tube feeding without stool sample results.
--- NOTE | 2018-09-29 18:36 | NUR ---
Problems reprioritized. Patient report given, questions answered & plan of care reviewed with DELVIS Miller.
--- NOTE | 2018-09-29 18:58 | NUR ---
Received report from Mary RN, patient resting comfortably, Normal saline infusing @ 100ml/hr, on Bipap @ 60% FiO2. Informed waiting for confirmation of CorPak placement. Patient has no complaint of pain at this time will continue to monitor closely
[2018-09-29 21:28] LABS: % IRON SATURATION 8 % (11-46); IRON 11 UG/DL (49-151); TOTAL IRON BINDING CAPACITY 131 UG/DL (259-388)
[2018-09-29 21:29] LABS: CREATINE KINASE 32 U/L (26-192); POTASSIUM 5.1 MMOL/L (3.5-5.1)
--- NOTE | 2018-09-29 23:57 | NUR ---
Unable to administer medications, Coreg 3.125, Eliquis 5mg, lactobacillus, and Tamiflu do to inability to confirm CorPak placement and patient unable to follow directions to swallow PO medications. Waiting on KUB to confirm placement at this time
[2018-09-30] VITALS (24 sets, daily range): BP systolic 80–119; BP diastolic 47–75
[2018-09-30] MEDS: piperacillin/tazo 3.375gm/50ml 50 ML IV SCH ×3 (00:24→15:59)
[2018-09-30] MEDS: normal saline 1000ml 1,000 ML IV SCH ×3 (00:25→18:48)
--- NOTE | 2018-09-30 00:38 | NUR ---
Corpak pulled back 8cm and repositioned; repeat KUB showing corpak in almost same position. Spoke w/JKinsey, PIANO TECHNICIAN; ok to use corpak as is for feeding and meds.
[2018-09-30] MEDS: ipratropium/albuterol 3ml nebule NEB SCH ×4 (03:28→22:11)
[2018-09-30] MEDS: oseltamivir phos 75mg capsule PO SCH ×3 (03:38→20:16)
[2018-09-30 03:40] LABS: OCCULT BLOOD STOOL POSITIVE (Neg)
[2018-09-30 04:47] LABS: BASOPHILS % (AUTO) 0.1 % (0-1); EOSINOPHILS % (AUTO) 0 % (0-6); HEMATOCRIT 29.7 % (35.0-45.0); HEMOGLOBIN 10.2 g/dl (12.0-16.0); LYMPHOCYTES % (AUTO) 13.3 % (21-51); MEAN CORPUSCULAR HEMOGLOBIN 31.6 PG (27.0-31.0); MEAN CORPUSCULAR HGB CONC 34.2 % (33.0-36.5); MEAN CORPUSCULAR VOLUME 92.3 FL (78-98); MEAN PLATELET VOLUME 10.4 FL (7.4-10.4); MONOCYTES % (AUTO) 0.1 % (2-12); NEUTROPHILS # (AUTO) 6.8 X10'3 (1.8-7.7); NEUTROPHILS % (AUTO) 86.5 % (42-75); PLATELET COUNT 222 X10'3 (140-440); RED BLOOD COUNT 3.22 X10'6 (4.20-5.60); RED CELL DISTRIBUTION WIDTH 16.4 % (11.5-14.5); WHITE BLOOD COUNT 7.8 X10'3 (4.5-11.0)
[2018-09-30 04:49] LABS: INR 2.2 INR; PROTHROMBIN TIME 21.7 SECONDS (9.0-12.0)
[2018-09-30 04:57] LABS: ALBUMIN 1.7 G/DL (3.4-5.0); ALBUMIN/GLOBULIN RATIO 0.5 (1.1-1.5); ALKALINE PHOSPHATASE 251 IU/L (46-116); ANION GAP 9 (8-16); BILIRUBIN,TOTAL 1.2 MG/DL (0.1-1.0); BLOOD UREA NITROGEN 38 MG/DL (7-18); BUN/CREATININE RATIO 42.7 (6.6-38.0); CALCIUM 7.9 MG/DL (8.5-10.1); CHLORIDE 104 MMOL/L (99-107); CREATININE 0.89 MG/DL (0.40-0.90); GLUCOSE 113 MG/DL (70-104); MAGNESIUM 1.9 MG/DL (1.5-2.4); PHOSPHORUS 1.9 MG/DL (2.3-4.5); POTASSIUM 4.3 MMOL/L (3.5-5.1); PREALBUMIN 6.3 MG/DL (19-36); SODIUM 135 MMOL/L (135-145); TOTAL CARBON DIOXIDE 22.5 MMOL/L (24-32); TOTAL PROTEIN 4.9 G/DL (6.4-8.2); eGFR 64 ML/MIN
[2018-09-30 04:58] LABS: ALANINE AMINOTRANSFERASE 1623 U/L (12-78); ASPARTATE AMINO TRANSFERASE 2056 U/L (10-37)
--- NOTE | 2018-09-30 06:31 | NUR ---
Problems reprioritized. Patient report given, questions answered & plan of care reviewed with Mary EDMONDSON.
[2018-09-30 06:52] LABS: NUCLEATED RED BLOOD CELLS 1 /100WBC (0-0); TOTAL CELLS COUNTED 100
[2018-09-30 06:53] LABS: ANISOCYTOSIS 1+; PLATELET ESTIMATE NORMAL
[2018-09-30 07:16] LABS: HBSAG SCREEN Negative (Negative); HEP A AB, IGM Negative (Negative); HEP B CORE AB, IGM Negative (Negative); HEPATITIS C ANTIBODY <0.1 s/co ratio (0.0-0.9)
[2018-09-30] MEDS: pantoprazole 40mg Tablet.DR PO SCH (07:43)
[2018-09-30] MEDS: apixaban 5mg tablet PO SCH ×2 (07:43→20:17)
[2018-09-30] MEDS: FLUoxetine 20mg capsule PO SCH (07:43)
[2018-09-30] MEDS: cyanocobalamin 500mcg tablet PO SCH (07:43)
[2018-09-30] MEDS: lactobacillus rhamnosus 10,000 MMU CELLS/CAPSULE PO SCH ×2 (07:43→20:16)
[2018-09-30] MEDS: carVEDilol 3.125mg tablet PO SCH ×2 (07:43→20:17)
[2018-09-30] MEDS: vitamin D (cholecalciferol) 1,000 unit tablet PO SCH (07:43)
[2018-09-30] MEDS: K, MAG and/or Phos replacement - Verify level? MC SCH (08:00)
[2018-09-30 08:52] LABS: HBSAG SCREEN Negative (Negative); HEP A AB, IGM Negative (Negative); HEPATITIS C ANTIBODY <0.1 s/co ratio (0.0-0.9)
[2018-09-30] MEDS: sodium ferric gluc complex inj 125 MG in normal saline 100ml IV soln 100 ML IV SCH (11:18)
[2018-09-30] MEDS ORDERED: magnesium 2GM in 50ml NS 50 ML IV ONE (11:25)
--- NOTE | 2018-09-30 17:00 | NUR ---
Per Dr. Ang, okay to remove picc and place PIV
--- NOTE | 2018-09-30 18:35 | NUR ---
Problems reprioritized. Patient report given, questions answered & plan of care reviewed with DELVIS Zamora.
[2018-09-30] MEDS ORDERED: glucagon, human recombinant 1mg kit SUBCUT PRN (20:25)
[2018-09-30] MEDS ORDERED: dextrose ORAL solution 15 GM/59 ML bottle PO PRN ×2 (20:25)
[2018-09-30] MEDS ORDERED: dextrose 50%-water 50ml dispensing syringe IV PRN (20:25)
[2018-09-30] MEDS ORDERED: MESSAGE TO PHARMACY PO ONE (20:25)
[2018-09-30 20:59] LABS: HEMOGLOBIN A1C 5.7 % (4.5-6.2)
[2018-09-30] MEDS: insulin glargine (Lantus) pen - multi-dose SQ SCH (21:00)
[2018-10-01] VITALS (24 sets, daily range): BP systolic 93–137; BP diastolic 42–80
[2018-10-01] MEDS: piperacillin/tazo 3.375gm/50ml 50 ML IV SCH ×3 (00:18→16:24)
[2018-10-01 03:43] LABS: INR 1.5 INR
[2018-10-01 03:48] LABS: ALANINE AMINOTRANSFERASE 1209 U/L (12-78); ALBUMIN 1.6 G/DL (3.4-5.0); ALBUMIN/GLOBULIN RATIO 0.5 (1.1-1.5); ALKALINE PHOSPHATASE 326 IU/L (46-116); ANION GAP 9 (8-16); ASPARTATE AMINO TRANSFERASE 980 U/L (10-37); BILIRUBIN,TOTAL 0.8 MG/DL (0.1-1.0); BLOOD UREA NITROGEN 32 MG/DL (7-18); BUN/CREATININE RATIO 42.1 (6.6-38.0); CALCIUM 7.7 MG/DL (8.5-10.1); CHLORIDE 109 MMOL/L (99-107); CREATININE 0.76 MG/DL (0.40-0.90); GLUCOSE 197 MG/DL (70-104); PHOSPHORUS 1.6 MG/DL (2.3-4.5); SODIUM 141 MMOL/L (135-145); TOTAL CARBON DIOXIDE 23.2 MMOL/L (24-32); eGFR 76 ML/MIN
[2018-10-01 03:59] LABS: BASOPHILS % (AUTO) 0 % (0-1); EOSINOPHILS % (AUTO) 0.1 % (0-6); HEMOGLOBIN 9.9 g/dl (12.0-16.0); LYMPHOCYTES # (AUTO) 0.5 X10'3 (1.1-4.8); LYMPHOCYTES % (AUTO) 4.5 % (21-51); MEAN CORPUSCULAR HEMOGLOBIN 29.8 PG (27.0-31.0); MEAN CORPUSCULAR HGB CONC 31.8 % (33.0-36.5); MEAN CORPUSCULAR VOLUME 93.7 FL (78-98); MEAN PLATELET VOLUME 11.4 FL (7.4-10.4); MONOCYTES # (AUTO) 0.1 X10'3 (0-0.9); MONOCYTES % (AUTO) 0.6 % (2-12); NEUTROPHILS # (AUTO) 9.9 X10'3 (1.8-7.7); NEUTROPHILS % (AUTO) 94.8 % (42-75); PLATELET COUNT 174 X10'3 (140-440); RED BLOOD COUNT 3.31 X10'6 (4.20-5.60); RED CELL DISTRIBUTION WIDTH 17.3 % (11.5-14.5); WHITE BLOOD COUNT 10.5 X10'3 (4.5-11.0)
[2018-10-01] MEDS: ipratropium/albuterol 3ml nebule NEB SCH ×4 (04:11→20:25)
[2018-10-01 04:50] LABS: ABG BASE EXCESS -7.1 mmol/L (-2.0-3.0); ABG PCO2 (T) 35.9 mmHg (32.0-45.0); ABG PH (T) 7.322 (7.350-7.450); ABG PO2 (T) 78.5 mmHg (83-108); ALLEN'S TEST Positive; FCOHb 0.3 % (0.5-1.5); FMetHb 0.2 % (0.3-1.12); FO2Hb 93.5 % (94-100); MINUTE VOLUME 16 L/min; PATIENT TEMPERATURE 37.9; RESPIRATORY RATE 18 b/min; RESPIRATORY RATE (OBSERVED) 27 b/min; TOTAL HEMOGLOBIN 10.6 G/dl (12.0-16.0)
[2018-10-01] MEDS: normal saline 1000ml 1,000 ML IV SCH ×2 (06:00→15:31)
[2018-10-01 06:29] LABS: HYPOCHROMASIA 2+; NUCLEATED RED BLOOD CELLS 1 /100WBC (0-0); POLYCHROMASIA 1+; TOTAL CELLS COUNTED 100
[2018-10-01 06:30] LABS: TARGET CELLS 1+
[2018-10-01 06:31] LABS: PLATELET ESTIMATE NORMAL
[2018-10-01] MEDS: K, MAG and/or Phos replacement - Verify level? MC SCH (08:00)
[2018-10-01] MEDS: lactobacillus rhamnosus 10,000 MMU CELLS/CAPSULE PO SCH ×2 (08:27→20:10)
[2018-10-01] MEDS: cyanocobalamin 500mcg tablet PO SCH (08:27)
[2018-10-01] MEDS: FLUoxetine 20mg capsule PO SCH (08:27)
[2018-10-01] MEDS: carVEDilol 3.125mg tablet PO SCH ×2 (08:27→20:11)
[2018-10-01] MEDS: pantoprazole 40mg Tablet.DR PO SCH (08:28)
[2018-10-01] MEDS: vitamin D (cholecalciferol) 1,000 unit tablet PO SCH (08:28)
[2018-10-01] MEDS: apixaban 5mg tablet PO SCH ×2 (08:28→20:11)
[2018-10-01] MEDS: oseltamivir phos 75mg capsule PO SCH ×2 (08:32→20:09)
[2018-10-01] MEDS: sodium ferric gluc complex inj 125 MG in normal saline 100ml IV soln 100 ML IV SCH (08:32)
[2018-10-01] MEDS: insulin regular, human vial - multi-dose SQ SCH ×3 (08:54→20:19)
--- NOTE | 2018-10-01 12:45 | NUR ---
Patient's Phosphorous at 1.6; Dr. Ang notified with orders to continue tube feeding as ordered. Will continue to monitor lab levels.
--- NOTE | 2018-10-01 17:32 | NUR ---
Attempted to see how patient would tolerate HiFlow nasal cannula; however, patient's o2 saturation decreased to mid 80s and HR increased to 140s with 10 beat run of Vtach. Dr. Ang notified; orders to keep continuous BiPap and to not try weaning until further notice.
--- NOTE | 2018-10-01 18:39 | NUR ---
Problems reprioritized. Patient report given, questions answered & plan of care reviewed with Noah EDMONDSON.
--- NOTE | 2018-10-01 19:00 | NUR ---
Patient in room CICU 2013. I have received report from Edmond EDMONDSON and had the opportunity to ask questions and assume patient care.
[2018-10-01 19:09] LABS: ANTINUCLEAR ANTIBODIES Negative (Negative)
[2018-10-01] MEDS: insulin glargine (Lantus) pen - multi-dose SQ SCH (20:21)
[2018-10-02] VITALS (26 sets, daily range): BP systolic 72–135; BP diastolic 48–77
[2018-10-02] MEDS: piperacillin/tazo 3.375gm/50ml 50 ML IV SCH ×3 (00:13→16:26)
[2018-10-02] MEDS: normal saline 1000ml 1,000 ML IV SCH ×3 (00:48→21:25)
[2018-10-02] MEDS: ipratropium/albuterol 3ml nebule NEB SCH ×6 (02:56→23:50)
[2018-10-02 03:49] LABS: HEMATOCRIT 30.7 % (35.0-45.0); HEMOGLOBIN 9.7 g/dl (12.0-16.0); MEAN CORPUSCULAR HEMOGLOBIN 29.5 PG (27.0-31.0); MEAN CORPUSCULAR HGB CONC 31.7 % (33.0-36.5); MEAN CORPUSCULAR VOLUME 93.1 FL (78-98); MEAN PLATELET VOLUME 11.9 FL (7.4-10.4); PLATELET COUNT 129 X10'3 (140-440); RED CELL DISTRIBUTION WIDTH 18.5 % (11.5-14.5); WHITE BLOOD COUNT 13.8 X10'3 (4.5-11.0)
[2018-10-02 03:53] LABS: INR 1.3 INR; PROTHROMBIN TIME 12.9 SECONDS (9.0-12.0)
[2018-10-02 03:58] LABS: ALANINE AMINOTRANSFERASE 821 U/L (12-78); ALBUMIN 1.4 G/DL (3.4-5.0); ALBUMIN/GLOBULIN RATIO 0.4 (1.1-1.5); ALKALINE PHOSPHATASE 320 IU/L (46-116); ANION GAP 10 (8-16); ASPARTATE AMINO TRANSFERASE 455 U/L (10-37); BILIRUBIN,TOTAL 0.7 MG/DL (0.1-1.0); BLOOD UREA NITROGEN 26 MG/DL (7-18); BUN/CREATININE RATIO 34.2 (6.6-38.0); CALCIUM 7.4 MG/DL (8.5-10.1); CHLORIDE 113 MMOL/L (99-107); CREATININE 0.76 MG/DL (0.40-0.90); GLUCOSE 150 MG/DL (70-104); MAGNESIUM 1.5 MG/DL (1.5-2.4); SODIUM 146 MMOL/L (135-145); TOTAL CARBON DIOXIDE 23.2 MMOL/L (24-32); TOTAL PROTEIN 5.1 G/DL (6.4-8.2); eGFR 76 ML/MIN
[2018-10-02 04:03] LABS: POTASSIUM 3.9 MMOL/L (3.5-5.1)
[2018-10-02 04:05] LABS: PHOSPHORUS 1.2 MG/DL (2.3-4.5)
[2018-10-02] MEDS ORDERED: sodium phosphate inj. 30 MMOL in dextrose 5%-water 250 ML IV PRN (05:20)
[2018-10-02] MEDS ORDERED: sodium phosphate inj. 15 MMOL in dextrose 5%-water 150 ML IV PRN (05:20)
[2018-10-02] MEDS ORDERED: potassium phosphate inj 30 MMOL in dextrose 5%-water 250 ML IV ONE (05:30)
[2018-10-02] MEDS ORDERED: potassium phosphate inj 30 MMOL in dextrose 5%-water 250 ML IV SCH (05:30)
[2018-10-02 05:36] LABS: ABG BASE EXCESS -3.8 mmol/L (-2.0-3.0); ABG HCO3 21.9 mmol/L (22.0-26.0); ABG PCO2 (T) 43.4 mmHg (32.0-45.0); ABG PH (T) 7.324 (7.350-7.450); ABG PO2 (T) 72.2 mmHg (83-108); ALLEN'S TEST Positive; FCOHb 0.3 % (0.5-1.5); FMetHb 0.3 % (0.3-1.12); FO2Hb 92.4 % (94-100); PATIENT TEMPERATURE 37.7; RESPIRATORY RATE 18 b/min; RESPIRATORY RATE (OBSERVED) 32 b/min; TOTAL HEMOGLOBIN 10.5 G/dl (12.0-16.0)
[2018-10-02 06:32] LABS: NUCLEATED RED BLOOD CELLS 3 /100WBC (0-0); PLATELET ESTIMATE DECREASED; TOTAL CELLS COUNTED 100
[2018-10-02 06:33] LABS: ANISOCYTOSIS 2+; HYPOCHROMASIA 1+; LARGE PLATELETS FEW; POLYCHROMASIA 2+
[2018-10-02 06:34] LABS: SCHISTOCYTES FEW; TARGET CELLS 1+; TOXIC VACUOLATION 1+
--- NOTE | 2018-10-02 06:45 | NUR ---
Patient in room CICU 2013. I have received report from DELVIS Zamora and had the opportunity to ask questions and assume patient care.
--- NOTE | 2018-10-02 07:39 | NUR ---
PT HAD 3 7-8 BEAT RUN OF VTACH. PER DR. FISH, WILL PUT IN 1X ORDER OF 4 GM MG++ IV OVER 24 HRS. POTASSIUM PHOSPHATE CURRENTLY INFUSING. POTASSIUM REPLACEMENT IN PROGRESS, K+ TO GET IT TO 4.5-5.
[2018-10-02] MEDS ORDERED: magnesium 4gm in 100ml NS 100 ML IV ONE (07:45)
[2018-10-02] MEDS: FLUoxetine 20mg capsule PO SCH (08:06)
[2018-10-02] MEDS: oseltamivir phos 75mg capsule PO SCH ×2 (08:07→21:09)
[2018-10-02] MEDS: potassium Cl oral solution 20 MEQ/15 ML PO PRN ×2 (08:07→21:21)
[2018-10-02] MEDS: carVEDilol 3.125mg tablet PO SCH (08:07)
[2018-10-02] MEDS: apixaban 5mg tablet PO SCH ×2 (08:07→21:08)
[2018-10-02] MEDS: vitamin D (cholecalciferol) 1,000 unit tablet PO SCH (08:07)
[2018-10-02] MEDS: pantoprazole 40mg Tablet.DR PO SCH (08:07)
[2018-10-02] MEDS: cyanocobalamin 500mcg tablet PO SCH (08:07)
[2018-10-02] MEDS: lactobacillus rhamnosus 10,000 MMU CELLS/CAPSULE PO SCH ×2 (08:08→21:08)
[2018-10-02] MEDS: K, MAG and/or Phos replacement - Verify level? MC SCH (08:11)
[2018-10-02] MEDS ORDERED: carVEDilol 3.125mg tablet PO ONE (09:10)
--- NOTE | 2018-10-02 09:32 | NUR ---
MG CURRENTLY INFUSING, POTASSIUM PHOSPHATE CURRENTLY INFUSING. HOLDING FERRLICIT AND ZOSYN UNTIL COMPLETED.
[2018-10-02] MEDS ORDERED: FENTANYL-0.9 % NACL/PF 100 ML IV PRN (09:36)
[2018-10-02] MEDS ORDERED: etomidate 2mg/ml inj. IV ONE (09:40)
[2018-10-02] MEDS ORDERED: fentaNYL/PF 50MCG/1 ML 2ML syringe IV PRN (09:40)
[2018-10-02] MEDS ORDERED: midazolam 2 mg/2 ml injection IV ONE (09:40)
[2018-10-02] MEDS ORDERED: ipratropium/albuterol 3ml nebule NEB PRN (09:40)
[2018-10-02] MEDS ORDERED: midazolam 2 mg/2 ml injection ONE (10:05)
--- NOTE | 2018-10-02 10:30 | NUR ---
RN took over care for d/t pt needing to be intubated. She was intubated at [address] Ang with 8.0 tube at 22 at the teeth. RT at bedside during intubation. Pt's BP started to drop after intubation and 500 ml bolus was given. Pt stil having extensive ectopy but no runs of VT and her HR has started to come down. Replacements are still going, RN will recheck when completed.
--- NOTE | 2018-10-02 10:39 | NUR ---
Problems reprioritized. Patient report given, questions answered & plan of care reviewed with DELVIS WHALEY.
[2018-10-02 11:01] LABS: ABG BASE EXCESS -4.9 mmol/L (-2.0-3.0); ABG HCO3 21.6 mmol/L (22.0-26.0); ABG PCO2 (T) 45.9 mmHg (32.0-45.0); ABG PO2 (T) 79.3 mmHg (83-108); ALLEN'S TEST Positive; FCOHb 0.3 % (0.5-1.5); FMetHb 0.3 % (0.3-1.12); FO2Hb 94.4 % (94-100); MINUTE VOLUME 13 L/min; PEEP 5 cm H2O; RESPIRATORY RATE 20 b/min; RESPIRATORY RATE (OBSERVED) 32 b/min; TIDAL VOLUME 350 mL; TOTAL HEMOGLOBIN 10.1 G/dl (12.0-16.0)
--- NOTE | 2018-10-02 11:30 | NUR ---
Addressed access with Dr. Ang d/t starting a fentanyl and versed gtt along with abx therapy and replacements. Per Dr. Ang the pt does not need more access. RN will attempt to place another PIV d/t compatibility reasons with the IV medications.
[2018-10-02] MEDS: midazolam 100mg in NS 100ml 100 ML IV PRN (11:33)
--- NOTE | 2018-10-02 11:49 | NUR ---
Reassessment: Pt continues to tolerate TF at goal of 65 mL/hr with low residuals 0-5 mL. Wt is stable with admit. Per MD notes pt obtunded and on BiPAP with sepsis improved. LBM /. Will continue to follow. Malnutrition consult: Pt admit w/ bilateral PNA hx ruptures appendix s/p surgery last admit 08/15. EMR reports pt too weak at home to even use bathroom and possible cholangitis per MD note. Per MD note pt tongue very dry. Na up to 125 from 118 on admit w/ no diarrhea noted. Currently on full liquid diet w/ 0% PO. Pt/daughters seen by RD; daughters feeding pt liquids and share she tolerates better than solids. Also, pt likes strawberry high protein smoothies and uses ensures at home per daughters. Jello TID, strawberry high protein smoothie TID, and ensure high protein WL added to meals. notified; RD d/w dietary. RD d/w RN that pt likely needs feeder; RN aware. Current wt pt stated though not communicating at this time and daughters offer no specifics; low wt evident. Given pt visible severe cachexia w/ little fat/muscle mass, BLE 3+ edema, open sacral wound, and low PO hx pt qualifies for severe malnutrition at this time. MD notified. Will monitor for ONS acceptance. Rec: 1. continue full liquids per pt preference; feeder w/ meals 2. strawberry high pro smoothie/jello TIDWM, ensure high protein WL 3. Continuous TF of Jevity 1.2 with goal rate of 65 mL/hr to begin at 20 mL/hr and advance by 20 mL q 8hrs as tolerated to goal rate 4. Additional water flushes per MD given low Na 5. Prealbumin a / 6. daily wt 7. MVI for wounds once PO improves Addendum: 10/02/18 at [address] Amended: Links added.
[2018-10-02] MEDS: sodium ferric gluc complex inj 125 MG in normal saline 100ml IV soln 100 ML IV SCH (11:59)
--- NOTE | 2018-10-02 13:45 | NUR ---
Pt's BP sustaining in the 70's/40-50 with MAPs in the 50's. Called Dr. Ang and explained that the versed had been paused to help with the pt's BP. Verbal orders for a liter bolus of NS and not to pause the versed. RN will follow up once the bolus is completed.
[2018-10-02] MEDS ORDERED: normal saline 1000ml 1,000 ML IV ONE ×2 (13:50→15:40)
[2018-10-02] MEDS: insulin regular, human vial - multi-dose SQ SCH ×2 (14:49→21:06)
--- NOTE | 2018-10-02 15:30 | NUR ---
Readdressed pt's hemodynamic status. We will give another liter of NS and then revaluate if the pt requires pressor support. Pt's SBP remains in the 70's with MAPs in the 50's.
[2018-10-02] MEDS ORDERED: morphine/NS 100mg/100ml bag 100 ML IV SCH (15:50)
--- NOTE | 2018-10-02 17:08 | NUR ---
Notified Dr. Ang of pt's BP after the 2nd liter of NS, MAPs sustaining in the 60's with BP in the 80's/60's. stated he was ok with MAPs of 60's. Holding off on starting levo and CVC placement at this time.
--- NOTE | 2018-10-02 17:37 | NUR ---
Spoke with pharmacy about fentanyl zyvox interaction. Told it takes about 2 hours for the fentanyl to clear the pt's system and then to give the first dose of zyvox. RN to pass on to shift leader, zyvox to be given at 194 d/t fentanyl being d/c'd at 1745.
--- NOTE | 2018-10-02 18:33 | NUR ---
Problems reprioritized. Patient report given, questions answered & plan of care reviewed with DELVIS Zamora.
[2018-10-02] MEDS: carvedilol 6.25mg tablet PO SCH (20:00)
[2018-10-02] MEDS: insulin glargine (Lantus) pen - multi-dose SQ SCH (21:06)
[2018-10-02] MEDS: linezolid 600mg/300ml PREMIX 300 ML IV SCH (21:17)
[2018-10-03] VITALS (24 sets, daily range): BP systolic 71–103; BP diastolic 45–70
[2018-10-03] MEDS: piperacillin/tazo 3.375gm/50ml 50 ML IV SCH ×4 (02:38→23:58)
[2018-10-03] MEDS: ipratropium/albuterol 3ml nebule NEB SCH ×6 (02:42→23:00)
[2018-10-03] MEDS: insulin regular, human vial - multi-dose SQ SCH ×4 (03:01→21:02)
[2018-10-03] MEDS ORDERED: DOPamine 400mg/D5W 250ml 250 ML IV ONE (06:04)
[2018-10-03] MEDS ORDERED: DOPamine 400mg/D5W 250ml 250 ML IV SCH (06:05)
[2018-10-03 06:07] LABS: INR 1.2 INR
[2018-10-03] MEDS ORDERED: albumin (Human) 5% 250ml 500 ML IV ONE (06:07)
[2018-10-03 06:10] LABS: ALANINE AMINOTRANSFERASE 573 U/L (12-78); ALBUMIN 1.2 G/DL (3.4-5.0); ALBUMIN/GLOBULIN RATIO 0.3 (1.1-1.5); ALKALINE PHOSPHATASE 272 IU/L (46-116); ANION GAP 13 (8-16); ASPARTATE AMINO TRANSFERASE 220 U/L (10-37); BILIRUBIN,TOTAL 0.6 MG/DL (0.1-1.0); BLOOD UREA NITROGEN 24 MG/DL (7-18); BUN/CREATININE RATIO 32.9 (6.6-38.0); CALCIUM 7.4 MG/DL (8.5-10.1); CHLORIDE 115 MMOL/L (99-107); CREATININE 0.73 MG/DL (0.40-0.90); GLUCOSE 106 MG/DL (70-104); MAGNESIUM 2.3 MG/DL (1.5-2.4); PHOSPHORUS 2.6 MG/DL (2.3-4.5); POTASSIUM 4.4 MMOL/L (3.5-5.1); SODIUM 149 MMOL/L (135-145); TOTAL CARBON DIOXIDE 21.4 MMOL/L (24-32); eGFR 80 ML/MIN
--- NOTE | 2018-10-03 06:20 | NUR ---
report received from Andre on 2012 all questions were answered Addendum: 10/03/18 at 1730 by Cornell Faustin RN assumed patient care
[2018-10-03 06:32] LABS: BASOPHILS % (AUTO) 0.1 % (0-1); EOSINOPHILS # (AUTO) 0.6 X10'3 (0-0.9); EOSINOPHILS % (AUTO) 3.5 % (0-6); HEMATOCRIT 29.5 % (35.0-45.0); HEMOGLOBIN 9.3 g/dl (12.0-16.0); LYMPHOCYTES # (AUTO) 0.5 X10'3 (1.1-4.8); LYMPHOCYTES % (AUTO) 3.3 % (21-51); MEAN CORPUSCULAR HEMOGLOBIN 30.1 PG (27.0-31.0); MEAN CORPUSCULAR HGB CONC 31.6 % (33.0-36.5); MEAN CORPUSCULAR VOLUME 95.2 FL (78-98); MEAN PLATELET VOLUME 11.7 FL (7.4-10.4); MONOCYTES # (AUTO) 0.3 X10'3 (0-0.9); MONOCYTES % (AUTO) 1.9 % (2-12); NEUTROPHILS # (AUTO) 15.1 X10'3 (1.8-7.7); NEUTROPHILS % (AUTO) 91.2 % (42-75); PLATELET COUNT 93 X10'3 (140-440); RED CELL DISTRIBUTION WIDTH 19.9 % (11.5-14.5); WHITE BLOOD COUNT 16.6 X10'3 (4.5-11.0)
[2018-10-03] MEDS: normal saline 1000ml 1,000 ML IV SCH ×2 (06:48→16:48)
[2018-10-03] MEDS ORDERED: DOBUTamine-DoBUTrex 500mg/D5W 250 ML IV SCH (07:25)
[2018-10-03] MEDS ORDERED: DOBUTamine-DoBUTrex 500mg/D5W 250 ML IV ONE (07:25)
[2018-10-03 07:48] LABS: ANISOCYTOSIS 2+; HYPOCHROMASIA 1+; LARGE PLATELETS FEW; NUCLEATED RED BLOOD CELLS 5 /100WBC (0-0); PLATELET ESTIMATE DECREASED; TOTAL CELLS COUNTED 100
[2018-10-03 07:49] LABS: POLYCHROMASIA 2+; SCHISTOCYTES FEW; TARGET CELLS 2+
[2018-10-03] MEDS: sodium ferric gluc complex inj 125 MG in normal saline 100ml IV soln 100 ML IV SCH ×2 (08:00→10:57)
[2018-10-03] MEDS: carvedilol 6.25mg tablet PO SCH ×3 (08:00→20:00)
[2018-10-03] MEDS: K, MAG and/or Phos replacement - Verify level? MC SCH (08:00)
[2018-10-03] MEDS: cyanocobalamin 500mcg tablet PO SCH (08:16)
[2018-10-03] MEDS: FLUoxetine 20mg capsule PO SCH (08:16)
[2018-10-03] MEDS: linezolid 600mg/300ml PREMIX 300 ML IV SCH ×2 (08:17→20:55)
[2018-10-03] MEDS: pantoprazole 40mg Tablet.DR PO SCH (08:17)
[2018-10-03] MEDS: vitamin D (cholecalciferol) 1,000 unit tablet PO SCH (08:17)
[2018-10-03] MEDS: apixaban 5mg tablet PO SCH ×2 (08:17→20:56)
[2018-10-03] MEDS: lactobacillus rhamnosus 10,000 MMU CELLS/CAPSULE PO SCH ×2 (08:17→20:56)
[2018-10-03] MEDS: oseltamivir phos 75mg capsule PO SCH ×2 (08:28→20:56)
[2018-10-03 11:11] LABS: OXYGEN SATURATION (MIXED VEN) 73.3 % (60-80); PO2 MIXED VENOUS (TEMP COR) 37.4 mmHg (35-46)
[2018-10-03] MEDS: hydrocortisone sod succ/PF 100mg/2ml inj. IV SCH ×3 (11:28→20:55)
[2018-10-03] MEDS: mineral oil/petrolatum ophthal oint EACHEYE SCH ×2 (13:34→20:00)
[2018-10-03 15:55] LABS: CERULOPLASMIN 24.9 mg/dL (19.0-39.0)
[2018-10-03] MEDS ORDERED: NORepinephrine 8mg/ 250ml NS 250 ML IV SCH (18:30)
--- NOTE | 2018-10-03 18:30 | NUR ---
Patient in room CICU 2013. I have received report from Lisandro EDMONDSON and had the opportunity to ask questions and assume patient care.
[2018-10-03] MEDS: NYSTATIN CREAM - 30GM TUBE TP SCH (20:56)
[2018-10-03] MEDS: famotidine/PF 10 mg/ml inj IV SCH (20:56)
[2018-10-03] MEDS: insulin glargine (Lantus) pen - multi-dose SQ SCH (21:03)
--- NOTE | 2018-10-03 23:52 | NUR ---
Pt hypotensive w/BP in the 80's but MAP remains greater than 60. Will continue to monitor.
[2018-10-04] VITALS (23 sets, daily range): BP systolic 84–99; BP diastolic 58–69
--- NOTE | 2018-10-04 00:35 | NUR ---
Pt residual:320mL via OG. Tube feeding held 1hr per protocol. Will restart at half.
[2018-10-04] MEDS: mineral oil/petrolatum ophthal oint EACHEYE SCH ×4 (02:28→20:50)
[2018-10-04] MEDS: hydrocortisone sod succ/PF 100mg/2ml inj. IV SCH ×4 (02:28→20:49)
[2018-10-04] MEDS: insulin regular, human vial - multi-dose SQ SCH (02:31)
[2018-10-04] MEDS: ipratropium/albuterol 3ml nebule NEB SCH ×6 (02:57→23:33)
[2018-10-04 03:10] LABS: INR 1.2 INR; PROTHROMBIN TIME 12.3 SECONDS (9.0-12.0)
[2018-10-04 03:11] LABS: ABG BASE EXCESS -5.3 mmol/L (-2.0-3.0); ABG HCO3 19.8 mmol/L (22.0-26.0); ABG OXYGEN SATURATION 94.1 % (95-98); ABG PCO2 (T) 35.5 mmHg (32.0-45.0); ABG PO2 (T) 67.8 mmHg (83-108); ALLEN'S TEST Positive; FCOHb 0.5 % (0.5-1.5); FMetHb 0.2 % (0.3-1.12); FO2Hb 93.4 % (94-100); PATIENT TEMPERATURE 36.2; PEEP 5 cm H2O; RESPIRATORY RATE 22 b/min; RESPIRATORY RATE (OBSERVED) 22 b/min; TIDAL VOLUME 400 mL; TOTAL HEMOGLOBIN 9.4 G/dl (12.0-16.0)
[2018-10-04 03:12] LABS: BASOPHILS % (AUTO) 0 % (0-1); EOSINOPHILS # (AUTO) 0.3 X10'3 (0-0.9); HEMATOCRIT 27.5 % (35.0-45.0); HEMOGLOBIN 8.5 g/dl (12.0-16.0); LYMPHOCYTES # (AUTO) 0.5 X10'3 (1.1-4.8); LYMPHOCYTES % (AUTO) 3.2 % (21-51); MEAN CORPUSCULAR HGB CONC 30.8 % (33.0-36.5); MEAN CORPUSCULAR VOLUME 94.1 FL (78-98); MEAN PLATELET VOLUME 12.2 FL (7.4-10.4); MONOCYTES # (AUTO) 0.3 X10'3 (0-0.9); MONOCYTES % (AUTO) 2.2 % (2-12); NEUTROPHILS # (AUTO) 12.9 X10'3 (1.8-7.7); NEUTROPHILS % (AUTO) 92.6 % (42-75); PLATELET COUNT 91 X10'3 (140-440); RED BLOOD COUNT 2.93 X10'6 (4.20-5.60); RED CELL DISTRIBUTION WIDTH 19.6 % (11.5-14.5)
[2018-10-04 03:16] LABS: ALANINE AMINOTRANSFERASE 392 U/L (12-78); ALBUMIN 1.5 G/DL (3.4-5.0); ALBUMIN/GLOBULIN RATIO 0.4 (1.1-1.5); ALKALINE PHOSPHATASE 214 IU/L (46-116); ANION GAP 8 (8-16); ASPARTATE AMINO TRANSFERASE 120 U/L (10-37); BLOOD UREA NITROGEN 26 MG/DL (7-18); BUN/CREATININE RATIO 38.8 (6.6-38.0); CALCIUM 7.4 MG/DL (8.5-10.1); CHLORIDE 115 MMOL/L (99-107); CREATININE 0.67 MG/DL (0.40-0.90); GLUCOSE 149 MG/DL (70-104); MAGNESIUM 1.9 MG/DL (1.5-2.4); PHOSPHORUS 2.6 MG/DL (2.3-4.5); POTASSIUM 4.8 MMOL/L (3.5-5.1); SODIUM 146 MMOL/L (135-145); TOTAL CARBON DIOXIDE 23.3 MMOL/L (24-32); TOTAL PROTEIN 5.2 G/DL (6.4-8.2); eGFR 88 ML/MIN
[2018-10-04] MEDS: normal saline 1000ml 1,000 ML IV SCH ×3 (03:41→22:48)
--- NOTE | 2018-10-04 04:25 | NUR ---
Residual:150mL via OG. Tube feed@35mL
--- NOTE | 2018-10-04 06:23 | NUR ---
Problems reprioritized. Patient report given, questions answered & plan of care reviewed with Lisandro EDMONDSON and Oneyda EDMONDSON.
[2018-10-04 07:02] LABS: NUCLEATED RED BLOOD CELLS 4 /100WBC (0-0); TOTAL CELLS COUNTED 100
[2018-10-04 07:03] LABS: ANISOCYTOSIS 2+; PLATELET ESTIMATE DECREASED
[2018-10-04 07:04] LABS: HYPOCHROMASIA 1+; POLYCHROMASIA 1+; TARGET CELLS 1+
[2018-10-04] MEDS ORDERED: magnesium 2GM in 50ml NS 50 ML IV PRN (07:20)
[2018-10-04] MEDS ORDERED: magnesium 4gm in 100ml NS 100 ML IV PRN (07:20)
[2018-10-04] MEDS: vitamin D (cholecalciferol) 1,000 unit tablet PO SCH (07:41)
[2018-10-04] MEDS: FLUoxetine 20mg capsule PO SCH (07:41)
[2018-10-04] MEDS: apixaban 5mg tablet PO SCH ×2 (07:42→20:50)
[2018-10-04] MEDS: linezolid 600mg/300ml PREMIX 300 ML IV SCH (07:42)
[2018-10-04] MEDS: cyanocobalamin 500mcg tablet PO SCH (07:42)
[2018-10-04] MEDS: famotidine/PF 10 mg/ml inj IV SCH ×2 (07:42→20:50)
[2018-10-04] MEDS: lactobacillus rhamnosus 10,000 MMU CELLS/CAPSULE PO SCH ×2 (07:42→20:50)
[2018-10-04] MEDS: NYSTATIN CREAM - 30GM TUBE TP SCH ×2 (07:43→20:50)
[2018-10-04] MEDS: carvedilol 6.25mg tablet PO SCH ×2 (07:43→19:57)
[2018-10-04] MEDS: K, MAG and/or Phos replacement - Verify level? MC SCH (08:00)
--- NOTE | 2018-10-04 09:21 | NUR ---
held tube feeding due to high residual Addendum: 10/04/18 at 0921 by Cornell Faustin RN Amended: Links added.
[2018-10-04] MEDS: sodium ferric gluc complex inj 125 MG in normal saline 100ml IV soln 100 ML IV SCH (09:49)
[2018-10-04] MEDS: piperacillin/tazo 3.375gm/50ml 50 ML IV SCH ×2 (13:54→20:50)
[2018-10-04] MEDS: metoclopramide 5 mg/ml inj IV SCH ×2 (13:55→20:49)
--- NOTE | 2018-10-04 18:30 | NUR ---
Patient in room CICU 2013. I have received report from Lisandro EDMONDSON and Oneyda EDMONDSON and had the opportunity to ask questions and assume patient care.
--- NOTE | 2018-10-04 18:38 | NUR ---
[place] documentation: I have reviewed and agree with all interventions, assessments performed and documented by Lisandro EDMONDSON .
--- NOTE | 2018-10-04 18:39 | NUR ---
[place] Medication Administration: For this medication-pass time frame, all medication were reviewed, dispensed, administered and documented per hospital policy by Lisandro EDMONDSON.
[2018-10-04] MEDS: morphine/NS 100mg/100ml bag 100 ML IV SCH (19:07)
[2018-10-04] MEDS: insulin glargine (Lantus) pen - multi-dose SQ SCH (20:51)
[2018-10-05] VITALS (24 sets, daily range): BP systolic 90–120; BP diastolic 48–77
[2018-10-05] MEDS: ipratropium/albuterol 3ml nebule NEB SCH ×6 (02:56→23:18)
[2018-10-05 03:07] LABS: BASOPHILS % (AUTO) 0 % (0-1); EOSINOPHILS # (AUTO) 0.1 X10'3 (0-0.9); HEMATOCRIT 27.3 % (35.0-45.0); HEMOGLOBIN 8.5 g/dl (12.0-16.0); LYMPHOCYTES # (AUTO) 0.5 X10'3 (1.1-4.8); LYMPHOCYTES % (AUTO) 3.3 % (21-51); MEAN CORPUSCULAR HEMOGLOBIN 28.9 PG (27.0-31.0); MEAN CORPUSCULAR HGB CONC 30.9 % (33.0-36.5); MEAN CORPUSCULAR VOLUME 93.4 FL (78-98); MEAN PLATELET VOLUME 12.1 FL (7.4-10.4); MONOCYTES # (AUTO) 0.5 X10'3 (0-0.9); MONOCYTES % (AUTO) 3.3 % (2-12); NEUTROPHILS % (AUTO) 92.4 % (42-75); PLATELET COUNT 111 X10'3 (140-440); RED BLOOD COUNT 2.93 X10'6 (4.20-5.60); RED CELL DISTRIBUTION WIDTH 19.2 % (11.5-14.5)
[2018-10-05 03:10] LABS: ABG BASE EXCESS -4.3 mmol/L (-2.0-3.0); ABG HCO3 20.4 mmol/L (22.0-26.0); ABG OXYGEN SATURATION 96.2 % (95-98); ABG PCO2 (T) 34.6 mmHg (32.0-45.0); ABG PH (T) 7.386 (7.350-7.450); ABG PO2 (T) 82.6 mmHg (83-108); ALLEN'S TEST Positive; FCOHb 0.3 % (0.5-1.5); FMetHb 0.2 % (0.3-1.12); FO2Hb 95.7 % (94-100); PATIENT TEMPERATURE 36.2; PEEP 5 cm H2O; RESPIRATORY RATE 22 b/min; RESPIRATORY RATE (OBSERVED) 22 b/min; TIDAL VOLUME 400 mL; TOTAL HEMOGLOBIN 9.7 G/dl (12.0-16.0)
[2018-10-05 03:22] LABS: INR 1.3 INR; PROTHROMBIN TIME 12.7 SECONDS (9.0-12.0)
[2018-10-05 03:24] LABS: ALANINE AMINOTRANSFERASE 304 U/L (12-78); ALBUMIN 1.4 G/DL (3.4-5.0); ALBUMIN/GLOBULIN RATIO 0.4 (1.1-1.5); ALKALINE PHOSPHATASE 245 IU/L (46-116); ANION GAP 12 (8-16); ASPARTATE AMINO TRANSFERASE 75 U/L (10-37); BLOOD UREA NITROGEN 33 MG/DL (7-18); BUN/CREATININE RATIO 41.3 (6.6-38.0); CALCIUM 7.6 MG/DL (8.5-10.1); CHLORIDE 112 MMOL/L (99-107); GLUCOSE 120 MG/DL (70-104); MAGNESIUM 2.1 MG/DL (1.5-2.4); PHOSPHORUS 3.3 MG/DL (2.3-4.5); POTASSIUM 5.1 MMOL/L (3.5-5.1); SODIUM 146 MMOL/L (135-145); TOTAL CARBON DIOXIDE 21.8 MMOL/L (24-32); TOTAL PROTEIN 5.2 G/DL (6.4-8.2); eGFR 72 ML/MIN
[2018-10-05] MEDS: hydrocortisone sod succ/PF 100mg/2ml inj. IV SCH ×4 (03:27→21:26)
[2018-10-05] MEDS: piperacillin/tazo 3.375gm/50ml 50 ML IV SCH ×4 (03:27→21:26)
[2018-10-05] MEDS: metoclopramide 5 mg/ml inj IV SCH ×4 (03:27→21:26)
[2018-10-05] MEDS: mineral oil/petrolatum ophthal oint EACHEYE SCH ×4 (03:27→21:28)
[2018-10-05 03:33] LABS: NUCLEATED RED BLOOD CELLS 5 /100WBC (0-0); TOTAL CELLS COUNTED 100
[2018-10-05 03:35] LABS: ANISOCYTOSIS 2+; HYPOCHROMASIA 2+; PLATELET ESTIMATE DECREASED; POLYCHROMASIA 1+; TARGET CELLS 2+
[2018-10-05 03:36] LABS: GIANT PLATELET FEW; LARGE PLATELETS FEW
--- NOTE | 2018-10-05 06:30 | NUR ---
Patient in room CICU 2013. I have received report from Ruby Verde RN, assumed patient care.
--- NOTE | 2018-10-05 06:30 | NUR ---
Problems reprioritized. Patient report given, questions answered & plan of care reviewed with Mery EDMONDSON.
--- NOTE | 2018-10-05 07:00 | NUR ---
Due to patient load, Kevin Mccrary RN is assisting with patient ventilator, family questions and medications as well as pumps.
[2018-10-05] MEDS: K, MAG and/or Phos replacement - Verify level? MC SCH (08:00)
[2018-10-05] MEDS: sodium ferric gluc complex inj 125 MG in normal saline 100ml IV soln 100 ML IV SCH (08:31)
[2018-10-05] MEDS: normal saline 1000ml 1,000 ML IV SCH ×2 (08:48→18:48)
[2018-10-05] MEDS: famotidine/PF 10 mg/ml inj IV SCH ×2 (10:02→21:26)
[2018-10-05] MEDS: apixaban 5mg tablet PO SCH ×2 (10:02→21:27)
[2018-10-05] MEDS: vitamin D (cholecalciferol) 1,000 unit tablet PO SCH (10:02)
[2018-10-05] MEDS: carvedilol 6.25mg tablet PO SCH ×2 (10:03→21:27)
[2018-10-05] MEDS: cyanocobalamin 500mcg tablet PO SCH (10:03)
[2018-10-05] MEDS: FLUoxetine 20mg capsule PO SCH (10:03)
[2018-10-05] MEDS: lactobacillus rhamnosus 10,000 MMU CELLS/CAPSULE PO SCH ×2 (10:03→21:27)
[2018-10-05] MEDS: NYSTATIN CREAM - 30GM TUBE TP SCH ×2 (10:03→21:27)
--- NOTE | 2018-10-05 14:21 | NUR ---
Reassessment: Patient is now intubated and sedated; receiving treatment for bilateral pneumonia and influenza. Sodium is 146, patient is receiving 200 ml water flush q 4. Has documented small daily liquid stools and gastric residuals under 250 ml today. She did have an elevated gastric residual of 300 on 10/04. Tube feeding currently at 15 ml/hr, recommend returning to goal per protocol d/w RN. In view of patient now intubated recommend changing tube feeding to vital AF at 55 ml/hr, will discuss at rounds. Will continue to follow. Rec: 1. Continuous TF of Jevity 1.2 with goal rate of 65 mL/hr to begin at 20 mL/hr and advance by 20 mL q 8hrs as tolerated to goal rate. Consider changing tube feeding formula and rate to vital AF at 55 ml/hr to provide adequate protein and calories while intubated. 2. Water flush 200 q 4 3. Prealbumin q / 4. daily wt Addendum: 10/05/18 at [address] Amended: Links added.
[2018-10-05] MEDS: midazolam 100mg in NS 100ml 100 ML IV PRN (14:34)
--- NOTE | 2018-10-05 18:30 | NUR ---
Patient in room CICU 2013. I have received report from Mery EDMONDSON and had the opportunity to ask questions and assume patient care.
--- NOTE | 2018-10-05 18:30 | NUR ---
Problems reprioritized. Patient report given, questions answered & plan of care reviewed with Ruby Verde RN.
[2018-10-05] MEDS: morphine/NS 100mg/100ml bag 100 ML IV SCH (18:44)
[2018-10-05] MEDS: insulin glargine (Lantus) pen - multi-dose SQ SCH (21:00)
--- NOTE | 2018-10-05 23:43 | NUR ---
Pt agitated at times,bites tube,attemtps to cough out. Will continue to monitor.
[2018-10-06] VITALS (24 sets, daily range): BP systolic 85–143; BP diastolic 48–95
[2018-10-06] MEDS: hydrocortisone sod succ/PF 100mg/2ml inj. IV SCH ×3 (02:48→19:31)
[2018-10-06] MEDS: metoclopramide 5 mg/ml inj IV SCH ×4 (02:48→19:30)
[2018-10-06] MEDS: mineral oil/petrolatum ophthal oint EACHEYE SCH ×4 (02:49→19:31)
[2018-10-06] MEDS: piperacillin/tazo 3.375gm/50ml 50 ML IV SCH ×4 (02:55→19:30)
[2018-10-06] MEDS: normal saline 1000ml 1,000 ML IV SCH ×2 (02:56→15:00)
[2018-10-06 03:25] LABS: ALANINE AMINOTRANSFERASE 261 U/L (12-78); ALBUMIN 1.5 G/DL (3.4-5.0); ALBUMIN/GLOBULIN RATIO 0.4 (1.1-1.5); ALKALINE PHOSPHATASE 318 IU/L (46-116); ANION GAP 11 (8-16); ASPARTATE AMINO TRANSFERASE 67 U/L (10-37); BLOOD UREA NITROGEN 47 MG/DL (7-18); BUN/CREATININE RATIO 49.5 (6.6-38.0); CALCIUM 7.7 MG/DL (8.5-10.1); CHLORIDE 114 MMOL/L (99-107); CREATININE 0.95 MG/DL (0.40-0.90); GLUCOSE 152 MG/DL (70-104); MAGNESIUM 2.1 MG/DL (1.5-2.4); SODIUM 145 MMOL/L (135-145); TOTAL CARBON DIOXIDE 19.9 MMOL/L (24-32); TOTAL PROTEIN 5.3 G/DL (6.4-8.2); eGFR 59 ML/MIN
[2018-10-06 03:26] LABS: INR 1.3 INR; PROTHROMBIN TIME 13.4 SECONDS (9.0-12.0)
[2018-10-06] MEDS: ipratropium/albuterol 3ml nebule NEB SCH ×6 (03:32→23:31)
[2018-10-06 03:33] LABS: BASOPHILS % (AUTO) 0 % (0-1); EOSINOPHILS % (AUTO) 0 % (0-6); HEMATOCRIT 25.8 % (35.0-45.0); HEMOGLOBIN 8.3 g/dl (12.0-16.0); LYMPHOCYTES # (AUTO) 0.6 X10'3 (1.1-4.8); LYMPHOCYTES % (AUTO) 5.5 % (21-51); MEAN CORPUSCULAR HEMOGLOBIN 30.6 PG (27.0-31.0); MEAN CORPUSCULAR HGB CONC 32.3 % (33.0-36.5); MEAN CORPUSCULAR VOLUME 94.9 FL (78-98); MEAN PLATELET VOLUME 12.1 FL (7.4-10.4); MONOCYTES # (AUTO) 0.4 X10'3 (0-0.9); MONOCYTES % (AUTO) 3.4 % (2-12); NEUTROPHILS # (AUTO) 10.5 X10'3 (1.8-7.7); NEUTROPHILS % (AUTO) 91.1 % (42-75); PLATELET COUNT 108 X10'3 (140-440); RED BLOOD COUNT 2.72 X10'6 (4.20-5.60); RED CELL DISTRIBUTION WIDTH 17.3 % (11.5-14.5); WHITE BLOOD COUNT 11.5 X10'3 (4.5-11.0)
[2018-10-06 03:45] LABS: ABG BASE EXCESS -7.5 mmol/L (-2.0-3.0); ABG HCO3 17.6 mmol/L (22.0-26.0); ABG OXYGEN SATURATION 94.1 % (95-98); ABG PCO2 (T) 34.3 mmHg (32.0-45.0); ABG PH (T) 7.329 (7.350-7.450); ABG PO2 (T) 79.5 mmHg (83-108); ALLEN'S TEST Positive; FCOHb 0.7 % (0.5-1.5); FMetHb 0.1 % (0.3-1.12); FO2Hb 93.3 % (94-100); PATIENT TEMPERATURE 37.1; PEEP 5 cm H2O; RESPIRATORY RATE 22 b/min; RESPIRATORY RATE (OBSERVED) 23 b/min; TIDAL VOLUME 400 mL; TOTAL HEMOGLOBIN 9.2 G/dl (12.0-16.0)
--- NOTE | 2018-10-06 06:30 | NUR ---
Patient in room CICU 2013. I have received report from DELVIS Beltran and had the opportunity to ask questions and assume patient care.
--- NOTE | 2018-10-06 06:30 | NUR ---
Problems reprioritized. Patient report given, questions answered & plan of care reviewed with Latoya EDMONDSON.
[2018-10-06 06:41] LABS: ANISOCYTOSIS 1+; GIANT PLATELET FEW; HYPOCHROMASIA 2+; LARGE PLATELETS FEW; NUCLEATED RED BLOOD CELLS 6 /100WBC (0-0); PLATELET ESTIMATE DECREASED; POLYCHROMASIA 1+; TARGET CELLS 2+; TOTAL CELLS COUNTED 100
[2018-10-06] MEDS: K, MAG and/or Phos replacement - Verify level? MC SCH (08:00)
--- NOTE | 2018-10-06 08:00 | NUR ---
pt is intubated and sedated, opens eyes to voice during sedation vacation but does not follow commands, pt was very tachycardiac and tachypneic, anxious. O2sat 87-88% on 40% FiO2. delayed gag reflex when ET suctioning. RT notified, Fi02 increase to 60%, sedation turned back on to 2mg versed to keep pt calm and sedated. PO coreg given via OGT.
[2018-10-06] MEDS: cyanocobalamin 500mcg tablet PO SCH (08:04)
[2018-10-06] MEDS: lactobacillus rhamnosus 10,000 MMU CELLS/CAPSULE PO SCH ×2 (08:04→19:31)
[2018-10-06] MEDS: vitamin D (cholecalciferol) 1,000 unit tablet PO SCH (08:05)
[2018-10-06] MEDS: FLUoxetine 20mg capsule PO SCH (08:05)
[2018-10-06] MEDS: apixaban 5mg tablet PO SCH ×2 (08:05→19:31)
[2018-10-06] MEDS: carvedilol 6.25mg tablet PO SCH ×2 (08:05→19:31)
[2018-10-06] MEDS: NYSTATIN CREAM - 30GM TUBE TP SCH ×2 (08:06→19:32)
[2018-10-06] MEDS: famotidine/PF 10 mg/ml inj IV SCH ×2 (08:11→19:30)
[2018-10-06] MEDS: sodium ferric gluc complex inj 125 MG in normal saline 100ml IV soln 100 ML IV SCH (09:30)
--- NOTE | 2018-10-06 11:00 | NUR ---
Dr. Ang arrived on unit and assessed pt, updated on pt condition, order received to start precedex, 1L NS bolus order received. Titrate Fio2 down as tolerated. updated family on plan of care.
[2018-10-06] MEDS ORDERED: normal saline 1000ml 1,000 ML IV ONE (11:50)
--- NOTE | 2018-10-06 12:20 | NUR ---
Problems reprioritized. Patient report given, questions answered & plan of care reviewed with DELVIS Zamora.
[2018-10-06] MEDS: lactose-reduced food (Ensure High Protein) 237ml bottle PO SCH (12:30)
[2018-10-06] MEDS: dexmedetomidin/NS 400mcg/100ml 100 ML IV SCH (13:11)
--- NOTE | 2018-10-06 15:45 | NUR ---
Reassessment: Patient is now intubated and sedated; receiving treatment for bilateral pneumonia and influenza. Sodium is 146, patient is receiving 200 ml water flush q 4. Has documented small daily liquid stools. Tube feedings turned off d/t gastric residuals 550 ml today. Patient is receiving Reglan daily and LBM today. In view of patient now intubated recommend changing tube feeding to vital AF at 55 ml/hr, d/w bedside RN. Will continue to follow. Rec: 1. Recommend tube feeding formula and rate to vital AF at 55 ml/hr to provide adequate protein and calories while intubated. Recommend to resume tube feedings when gastric residuals under 250 ml. This will provide total volume of 1320 ml/hr, 1584 cals, 89 gm protein, 1008 ml free water. 2. Water flush 200 q 4 3. Prealbumin q / 4. daily wt Addendum: 10/06/18 at [address] Amended: Links added.
[2018-10-06] MEDS: insulin glargine (Lantus) pen - multi-dose SQ SCH (21:00)
[2018-10-07] VITALS (23 sets, daily range): BP systolic 111–138; BP diastolic 72–92
[2018-10-07] MEDS: normal saline 1000ml 1,000 ML IV SCH ×2 (00:48→10:48)
[2018-10-07] MEDS: piperacillin/tazo 3.375gm/50ml 50 ML IV SCH ×4 (01:35→20:33)
[2018-10-07] MEDS: metoclopramide 5 mg/ml inj IV SCH ×4 (01:35→20:33)
[2018-10-07] MEDS: mineral oil/petrolatum ophthal oint EACHEYE SCH ×4 (01:35→20:33)
[2018-10-07] MEDS: insulin regular, human vial - multi-dose SQ SCH ×4 (01:59→20:56)
[2018-10-07 03:17] LABS: BASOPHILS % (AUTO) 0.2 % (0-1); EOSINOPHILS % (AUTO) 0 % (0-6); HEMATOCRIT 26.3 % (35.0-45.0); HEMOGLOBIN 8.3 g/dl (12.0-16.0); LYMPHOCYTES # (AUTO) 0.6 X10'3 (1.1-4.8); LYMPHOCYTES % (AUTO) 4.9 % (21-51); MEAN CORPUSCULAR HEMOGLOBIN 30.1 PG (27.0-31.0); MEAN CORPUSCULAR HGB CONC 31.5 % (33.0-36.5); MEAN CORPUSCULAR VOLUME 95.7 FL (78-98); MEAN PLATELET VOLUME 11.3 FL (7.4-10.4); MONOCYTES # (AUTO) 0.5 X10'3 (0-0.9); MONOCYTES % (AUTO) 3.9 % (2-12); PLATELET COUNT 98 X10'3 (140-440); RED BLOOD COUNT 2.75 X10'6 (4.20-5.60); RED CELL DISTRIBUTION WIDTH 18.6 % (11.5-14.5); WHITE BLOOD COUNT 12.1 X10'3 (4.5-11.0)
[2018-10-07 03:30] LABS: ALANINE AMINOTRANSFERASE 188 U/L (12-78); ALBUMIN 1.3 G/DL (3.4-5.0); ALBUMIN/GLOBULIN RATIO 0.4 (1.1-1.5); ALKALINE PHOSPHATASE 232 IU/L (46-116); ANION GAP 11 (8-16); ASPARTATE AMINO TRANSFERASE 46 U/L (10-37); BILIRUBIN,TOTAL 1.1 MG/DL (0.1-1.0); BLOOD UREA NITROGEN 50 MG/DL (7-18); BUN/CREATININE RATIO 58.1 (6.6-38.0); CALCIUM 7.4 MG/DL (8.5-10.1); CHLORIDE 116 MMOL/L (99-107); CREATININE 0.86 MG/DL (0.40-0.90); GLUCOSE 166 MG/DL (70-104); PHOSPHORUS 4.1 MG/DL (2.3-4.5); POTASSIUM 4.5 MMOL/L (3.5-5.1); SODIUM 146 MMOL/L (135-145); TOTAL CARBON DIOXIDE 18.7 MMOL/L (24-32); TOTAL PROTEIN 4.8 G/DL (6.4-8.2); eGFR 66 ML/MIN
[2018-10-07] MEDS: ipratropium/albuterol 3ml nebule NEB SCH ×6 (03:36→23:16)
[2018-10-07 03:42] LABS: PROTHROMBIN TIME 13.8 SECONDS (9.0-12.0)
[2018-10-07 03:43] LABS: INR 1.4 INR
[2018-10-07 03:55] LABS: ABG BASE EXCESS -8.3 mmol/L (-2.0-3.0); ABG HCO3 16.4 mmol/L (22.0-26.0); ABG OXYGEN SATURATION 97.7 % (95-98); ABG PCO2 (T) 29.8 mmHg (32.0-45.0); ABG PH (T) 7.355 (7.350-7.450); ABG PO2 (T) 110.2 mmHg (83-108); ALLEN'S TEST Positive; FCOHb 0.6 % (0.5-1.5); FMetHb 0.2 % (0.3-1.12); FO2Hb 96.9 % (94-100); MINUTE VOLUME 10 L/min; PATIENT TEMPERATURE 36.2; PEEP 5 cm H2O; RESPIRATORY RATE 22 b/min; RESPIRATORY RATE (OBSERVED) 22 b/min; TIDAL VOLUME 400 mL; TOTAL HEMOGLOBIN 9.3 G/dl (12.0-16.0)
--- NOTE | 2018-10-07 06:46 | NUR ---
Patient in room CICU 2013. I have received report from DELVIS Cesar and had the opportunity to ask questions and assume patient care.
[2018-10-07] MEDS: K, MAG and/or Phos replacement - Verify level? MC SCH (08:00)
[2018-10-07] MEDS: hydrocortisone sod succ/PF 100mg/2ml inj. IV SCH ×2 (08:48→20:33)
[2018-10-07] MEDS: vitamin D (cholecalciferol) 1,000 unit tablet PO SCH (08:48)
[2018-10-07] MEDS: lactobacillus rhamnosus 10,000 MMU CELLS/CAPSULE PO SCH ×2 (08:48→20:11)
[2018-10-07] MEDS: famotidine/PF 10 mg/ml inj IV SCH ×2 (08:48→20:33)
[2018-10-07] MEDS: cyanocobalamin 500mcg tablet PO SCH (08:48)
[2018-10-07] MEDS: carvedilol 6.25mg tablet PO SCH ×2 (08:49→20:11)
[2018-10-07] MEDS: apixaban 5mg tablet PO SCH ×2 (08:49→20:11)
[2018-10-07] MEDS: FLUoxetine 20mg capsule PO SCH (08:49)
[2018-10-07] MEDS: dexmedetomidin/NS 400mcg/100ml 100 ML IV SCH ×2 (08:49→23:48)
[2018-10-07] MEDS: NYSTATIN CREAM - 30GM TUBE TP SCH ×2 (08:50→20:34)
[2018-10-07] MEDS: furosemide 20 MG/2 ML vial IV SCH (09:37)
[2018-10-07] MEDS: sodium ferric gluc complex inj 125 MG in normal saline 100ml IV soln 100 ML IV SCH (10:24)
[2018-10-07] MEDS: lactose-reduced food (Ensure High Protein) 237ml bottle PO SCH (12:30)
--- NOTE | 2018-10-07 18:15 | NUR ---
Problems reprioritized. Patient report given, questions answered & plan of care reviewed with DELVIS Cesar.
[2018-10-07] MEDS: insulin glargine (Lantus) pen - multi-dose SQ SCH (20:57)
[2018-10-07] MEDS: morphine/NS 100mg/100ml bag 100 ML IV SCH (23:30)
[2018-10-08] VITALS (24 sets, daily range): BP systolic 121–158; BP diastolic 72–114
[2018-10-08 01:49] LABS: ALANINE AMINOTRANSFERASE 216 U/L (12-78); ALBUMIN 1.4 G/DL (3.4-5.0); ALBUMIN/GLOBULIN RATIO 0.4 (1.1-1.5); ALKALINE PHOSPHATASE 284 IU/L (46-116); ANION GAP 12 (8-16); ASPARTATE AMINO TRANSFERASE 99 U/L (10-37); BILIRUBIN,TOTAL 1.1 MG/DL (0.1-1.0); BLOOD UREA NITROGEN 54 MG/DL (7-18); CALCIUM 7.4 MG/DL (8.5-10.1); CHLORIDE 115 MMOL/L (99-107); CREATININE 0.88 MG/DL (0.40-0.90); GLUCOSE 165 MG/DL (70-104); MAGNESIUM 1.8 MG/DL (1.5-2.4); PHOSPHORUS 3.3 MG/DL (2.3-4.5); POTASSIUM 3.7 MMOL/L (3.5-5.1); PREALBUMIN 17.6 MG/DL (19-36); SODIUM 147 MMOL/L (135-145); TOTAL CARBON DIOXIDE 20.5 MMOL/L (24-32); eGFR 64 ML/MIN
[2018-10-08 01:51] LABS: BUN/CREATININE RATIO 61.4 (6.6-38.0); INR 1.4 INR
[2018-10-08] MEDS: mineral oil/petrolatum ophthal oint EACHEYE SCH ×4 (02:00→20:47)
[2018-10-08] MEDS: piperacillin/tazo 3.375gm/50ml 50 ML IV SCH ×4 (02:00→20:46)
[2018-10-08] MEDS: metoclopramide 5 mg/ml inj IV SCH ×4 (02:00→20:47)
[2018-10-08] MEDS: potassium Cl oral solution 20 MEQ/15 ML PO PRN ×3 (02:00→14:07)
[2018-10-08] MEDS: insulin regular, human vial - multi-dose SQ SCH ×4 (02:09→21:16)
[2018-10-08 02:27] LABS: BASOPHILS # (AUTO) 0.1 X10'3 (0-0.2); BASOPHILS % (AUTO) 0.5 % (0-1); EOSINOPHILS % (AUTO) 0 % (0-6); HEMATOCRIT 27.8 % (35.0-45.0); HEMOGLOBIN 8.9 g/dl (12.0-16.0); LYMPHOCYTES # (AUTO) 0.6 X10'3 (1.1-4.8); LYMPHOCYTES % (AUTO) 3.8 % (21-51); MEAN CORPUSCULAR HEMOGLOBIN 30.7 PG (27.0-31.0); MEAN CORPUSCULAR HGB CONC 31.9 % (33.0-36.5); MEAN CORPUSCULAR VOLUME 96.1 FL (78-98); MEAN PLATELET VOLUME 11.7 FL (7.4-10.4); MONOCYTES # (AUTO) 0.7 X10'3 (0-0.9); MONOCYTES % (AUTO) 4.5 % (2-12); NEUTROPHILS # (AUTO) 13.9 X10'3 (1.8-7.7); NEUTROPHILS % (AUTO) 91.2 % (42-75); PLATELET COUNT 113 X10'3 (140-440); RED BLOOD COUNT 2.89 X10'6 (4.20-5.60); RED CELL DISTRIBUTION WIDTH 18.9 % (11.5-14.5); WHITE BLOOD COUNT 15.3 X10'3 (4.5-11.0)
[2018-10-08] MEDS: ipratropium/albuterol 3ml nebule NEB SCH ×5 (02:37→19:35)
[2018-10-08 04:00] LABS: ABG BASE EXCESS -6.4 mmol/L (-2.0-3.0); ABG HCO3 16.5 mmol/L (22.0-26.0); ABG OXYGEN SATURATION 94.9 % (95-98); ABG PCO2 (T) 25.6 mmHg (32.0-45.0); ABG PH (T) 7.431 (7.350-7.450); ABG PO2 (T) 78.9 mmHg (83-108); ALLEN'S TEST Positive; FCOHb 0.3 % (0.5-1.5); FMetHb 0.1 % (0.3-1.12); FO2Hb 94.5 % (94-100); MINUTE VOLUME 11 L/min; PATIENT TEMPERATURE 37.6; PEEP 5 cm H2O; RESPIRATORY RATE 20 b/min; RESPIRATORY RATE (OBSERVED) 27 b/min; TIDAL VOLUME 400 mL; TOTAL HEMOGLOBIN 9.5 G/dl (12.0-16.0)
[2018-10-08] MEDS ORDERED: magnesium 2GM in 50ml NS 50 ML IV ONE (04:20)
[2018-10-08 04:55] LABS: NUCLEATED RED BLOOD CELLS 4 /100WBC (0-0); TOTAL CELLS COUNTED 100
[2018-10-08 04:57] LABS: ANISOCYTOSIS 2+; LARGE PLATELETS FEW; PLATELET ESTIMATE DECREASED; POLYCHROMASIA 1+
[2018-10-08 04:58] LABS: HYPOCHROMASIA 1+; TARGET CELLS 1+
--- NOTE | 2018-10-08 06:55 | NUR ---
Patient in room CICU 2013. I have received report from DELVIS Cesar and had the opportunity to ask questions and assume patient care.
[2018-10-08] MEDS: hydrocortisone sod succ/PF 100mg/2ml inj. IV SCH ×2 (07:49→20:47)
[2018-10-08] MEDS: carvedilol 6.25mg tablet PO SCH ×2 (07:49→20:47)
[2018-10-08] MEDS: vitamin D (cholecalciferol) 1,000 unit tablet PO SCH (07:49)
[2018-10-08] MEDS: furosemide 20 MG/2 ML vial IV SCH (07:49)
[2018-10-08] MEDS: apixaban 5mg tablet PO SCH ×2 (07:49→20:47)
[2018-10-08] MEDS: cyanocobalamin 500mcg tablet PO SCH (07:49)
[2018-10-08] MEDS: FLUoxetine 20mg capsule PO SCH (07:50)
[2018-10-08] MEDS: lactobacillus rhamnosus 10,000 MMU CELLS/CAPSULE PO SCH ×2 (07:50→20:46)
[2018-10-08] MEDS: famotidine/PF 10 mg/ml inj IV SCH ×2 (07:54→20:47)
[2018-10-08] MEDS: K, MAG and/or Phos replacement - Verify level? MC SCH (08:00)
[2018-10-08] MEDS: sodium ferric gluc complex inj 125 MG in normal saline 100ml IV soln 100 ML IV SCH (08:08)
[2018-10-08] MEDS: NYSTATIN CREAM - 30GM TUBE TP SCH ×2 (08:09→20:00)
[2018-10-08] MEDS: lactose-reduced food (Ensure High Protein) 237ml bottle PO SCH (12:30)
--- NOTE | 2018-10-08 14:00 | NUR ---
Precedex turned of this am in hopes of arousing pt. Pt put on cpap mode on vent and became extremely tachypnic (RR 40s), tachycardic, and hypertensive. Precedex restarted and pt put back on A/C PRVC mode. Will attemt cpap mode again tomorrow with precedex running. Pt now calm with VSS
--- NOTE | 2018-10-08 16:52 | NUR ---
Pt condition unchanged despite having all sedation turned of for over 24 hours. Pt pupils equal round and reactive to light and blink response positive. Pt has positive gag when suctioned but unresponsive to any pain stimuli. Dr. Kenney and Dr. Ang at bedside discussing options with family. Plan to continue plan of care through the weekend and then possibly trach pt if needed. Family understands plan of care and had all questions answered
--- NOTE | 2018-10-08 18:31 | NUR ---
Problems reprioritized. Patient report given, questions answered & plan of care reviewed with DELVIS Pulido.
--- NOTE | 2018-10-08 18:37 | NUR ---
Patient in room CICU 2012. I have received report from Mary EDMONDSON and had the opportunity to ask questions and assume patient care. pt on vent at 30%, spo2 at 99%, Precedex gtt infusing via central line, see IV flowsheet for more information. All monitoring alarms audible. Will continue to monitor.
[2018-10-08] MEDS: dexmedetomidin/NS 400mcg/100ml 100 ML IV SCH (18:41)
[2018-10-08] MEDS: insulin glargine (Lantus) pen - multi-dose SQ SCH (21:17)
[2018-10-08 23:36] LABS: MAGNESIUM 1.8 MG/DL (1.5-2.4); POTASSIUM 3.8 MMOL/L (3.5-5.1)
[2018-10-09] VITALS (24 sets, daily range): BP systolic 81–145; BP diastolic 64–92
[2018-10-09] MEDS: ipratropium/albuterol 3ml nebule NEB SCH ×7 (00:07→23:05)
[2018-10-09] MEDS: potassium Cl oral solution 20 MEQ/15 ML PO PRN ×4 (00:19→20:29)
[2018-10-09] MEDS: metoclopramide 5 mg/ml inj IV SCH ×4 (02:19→20:18)
[2018-10-09] MEDS: mineral oil/petrolatum ophthal oint EACHEYE SCH ×4 (02:19→20:35)
[2018-10-09] MEDS: piperacillin/tazo 3.375gm/50ml 50 ML IV SCH ×2 (02:19→07:44)
[2018-10-09] MEDS: insulin regular, human vial - multi-dose SQ SCH ×4 (02:28→20:35)
[2018-10-09 03:57] LABS: BASOPHILS # (AUTO) 0.1 X10'3 (0-0.2); BASOPHILS % (AUTO) 0.4 % (0-1); EOSINOPHILS % (AUTO) 0 % (0-6); HEMATOCRIT 27.4 % (35.0-45.0); HEMOGLOBIN 9.1 g/dl (12.0-16.0); LYMPHOCYTES # (AUTO) 1.6 X10'3 (1.1-4.8); LYMPHOCYTES % (AUTO) 7.9 % (21-51); MEAN CORPUSCULAR HEMOGLOBIN 32.2 PG (27.0-31.0); MEAN CORPUSCULAR HGB CONC 33.3 % (33.0-36.5); MEAN CORPUSCULAR VOLUME 96.7 FL (78-98); MONOCYTES # (AUTO) 0.8 X10'3 (0-0.9); MONOCYTES % (AUTO) 3.9 % (2-12); NEUTROPHILS # (AUTO) 17.2 X10'3 (1.8-7.7); NEUTROPHILS % (AUTO) 87.8 % (42-75); PLATELET COUNT 131 X10'3 (140-440); RED BLOOD COUNT 2.83 X10'6 (4.20-5.60); RED CELL DISTRIBUTION WIDTH 18.6 % (11.5-14.5); WHITE BLOOD COUNT 19.7 X10'3 (4.5-11.0)
[2018-10-09 04:06] LABS: ALANINE AMINOTRANSFERASE 173 U/L (12-78); ALBUMIN 1.4 G/DL (3.4-5.0); ALBUMIN/GLOBULIN RATIO 0.4 (1.1-1.5); ALKALINE PHOSPHATASE 307 IU/L (46-116); ANION GAP 10 (8-16); ASPARTATE AMINO TRANSFERASE 55 U/L (10-37); BILIRUBIN,TOTAL 1.1 MG/DL (0.1-1.0); BLOOD UREA NITROGEN 51 MG/DL (7-18); CALCIUM 7.4 MG/DL (8.5-10.1); CHLORIDE 116 MMOL/L (99-107); CREATININE 0.81 MG/DL (0.40-0.90); GLUCOSE 179 MG/DL (70-104); MAGNESIUM 1.9 MG/DL (1.5-2.4); PHOSPHORUS 2.3 MG/DL (2.3-4.5); POTASSIUM 4.6 MMOL/L (3.5-5.1); SODIUM 147 MMOL/L (135-145); TOTAL CARBON DIOXIDE 20.7 MMOL/L (24-32); eGFR 71 ML/MIN
[2018-10-09 04:06] LABS: ABG BASE EXCESS -7.6 mmol/L (-2.0-3.0); ABG HCO3 14.2 mmol/L (22.0-26.0); ABG OXYGEN SATURATION 97.6 % (95-98); ABG PCO2 (T) 19.8 mmHg (32.0-45.0); ABG PO2 (T) 118.4 mmHg (83-108); ALLEN'S TEST Positive; FCOHb 0.9 % (0.5-1.5); FMetHb 0.4 % (0.3-1.12); FO2Hb 96.3 % (94-100); MINUTE VOLUME 10 L/min; PATIENT TEMPERATURE 38.4; PEEP 5 cm H2O; RESPIRATORY RATE 20 b/min; RESPIRATORY RATE (OBSERVED) 25 b/min; TIDAL VOLUME 400 mL; TOTAL HEMOGLOBIN 8.1 G/dl (12.0-16.0)
[2018-10-09 04:12] LABS: INR 1.4 INR; PROTHROMBIN TIME 13.6 SECONDS (9.0-12.0)
[2018-10-09 05:50] LABS: NUCLEATED RED BLOOD CELLS 4 /100WBC (0-0); PLATELET ESTIMATE NORMAL; TOTAL CELLS COUNTED 100
[2018-10-09 05:51] LABS: ANISOCYTOSIS 2+; HYPOCHROMASIA 1+; LARGE PLATELETS FEW; POLYCHROMASIA FEW; TARGET CELLS 1+
--- NOTE | 2018-10-09 06:15 | NUR ---
Problems reprioritized. Patient report given, questions answered & plan of care reviewed with Mary EDMONDSON.
[2018-10-09] MEDS: dexmedetomidin/NS 400mcg/100ml 100 ML IV SCH ×3 (06:19→23:31)
--- NOTE | 2018-10-09 06:53 | NUR ---
Patient in room CICU 2013. I have received report from DELVIS Pulido and had the opportunity to ask questions and assume patient care.
[2018-10-09] MEDS: famotidine/PF 10 mg/ml inj IV SCH ×2 (07:43→20:18)
[2018-10-09] MEDS: furosemide 20 MG/2 ML vial IV SCH ×2 (07:43→20:18)
[2018-10-09] MEDS: FLUoxetine 20mg capsule PO SCH (07:43)
[2018-10-09] MEDS: hydrocortisone sod succ/PF 100mg/2ml inj. IV SCH (07:43)
[2018-10-09] MEDS: apixaban 5mg tablet PO SCH ×2 (07:44→20:17)
[2018-10-09] MEDS: vitamin D (cholecalciferol) 1,000 unit tablet PO SCH (07:44)
[2018-10-09] MEDS: cyanocobalamin 500mcg tablet PO SCH (07:44)
[2018-10-09] MEDS: carvedilol 6.25mg tablet PO SCH ×2 (07:44→20:18)
[2018-10-09] MEDS: lactobacillus rhamnosus 10,000 MMU CELLS/CAPSULE PO SCH ×2 (07:44→20:17)
[2018-10-09] MEDS: NYSTATIN CREAM - 30GM TUBE TP SCH ×2 (07:45→20:27)
[2018-10-09] MEDS: acetaminophen 325mg tablet PO PRN ×3 (08:00→22:04)
[2018-10-09] MEDS: K, MAG and/or Phos replacement - Verify level? MC SCH (08:00)
[2018-10-09 10:54] LABS: MAGNESIUM 1.7 MG/DL (1.5-2.4); POTASSIUM 3.5 MMOL/L (3.5-5.1)
--- NOTE | 2018-10-09 11:25 | NUR ---
Reassessment: Pt remains intubated now tolerating TF at goal rate with Vital AF at 55 mL/hr with low residuals 0-100 mL. Na remains elevated at 147 with water flushes mentioned below. [facility] 10/08. Will continue to follow. Rec: 1. Recommend tube feeding formula and rate to vital AF at 55 ml/hr to provide adequate protein and calories while intubated. Recommend to resume tube feedings when gastric residuals under 250 ml. This will provide total volume of 1320 ml/hr, 1584 cals, 89 gm protein, 1008 ml free water. 2. Water flush 200 q 4 3. Prealbumin q / 4. daily wt Addendum: 10/09/18 at [address] Amended: Links added.
[2018-10-09] MEDS: fluconazole/NS 400mg/200ml bag 200 ML IV SCH (11:38)
[2018-10-09] MEDS: cefepime 2g/NS 100ml ADVANTAGE 100 ML IV SCH ×2 (11:39→20:14)
[2018-10-09] MEDS ORDERED: magnesium 2GM in 50ml NS 50 ML IV ONE (11:45)
[2018-10-09] MEDS: lactose-reduced food (Ensure High Protein) 237ml bottle PO SCH (12:30)
[2018-10-09] MEDS: vancomycin inj 1,250 MG in normal saline 250ml IV soln 250 ML IV SCH ×2 (13:20→23:31)
--- NOTE | 2018-10-09 14:30 | NUR ---
Pt placed on CPAP mode for 2 hours. Tachypnic in 30s and work of breathing increased. Back on AC PRVC mode at 1410.
--- NOTE | 2018-10-09 16:24 | NUR ---
Per Dr. Mirza, okay to take pt out of droplet iso since flu swab came back negative
[2018-10-09] MEDS: insulin glargine (Lantus) pen - multi-dose SQ SCH (20:34)
[2018-10-10] VITALS (24 sets, daily range): BP systolic 80–121; BP diastolic 53–75
[2018-10-10] MEDS: mineral oil/petrolatum ophthal oint EACHEYE SCH ×4 (02:07→20:17)
[2018-10-10] MEDS: metoclopramide 5 mg/ml inj IV SCH ×4 (02:07→20:17)
[2018-10-10] MEDS: dexmedetomidin/NS 400mcg/100ml 100 ML IV SCH ×2 (02:11→10:11)
[2018-10-10] MEDS: insulin regular, human vial - multi-dose SQ SCH ×2 (02:14→09:14)
[2018-10-10 03:12] LABS: BASOPHILS # (AUTO) 0.1 X10'3 (0-0.2); BASOPHILS % (AUTO) 0.2 % (0-1); EOSINOPHILS # (AUTO) 0.1 X10'3 (0-0.9); EOSINOPHILS % (AUTO) 0.2 % (0-6); HEMATOCRIT 26.4 % (35.0-45.0); HEMOGLOBIN 8.4 g/dl (12.0-16.0); LYMPHOCYTES # (AUTO) 1.4 X10'3 (1.1-4.8); LYMPHOCYTES % (AUTO) 5.3 % (21-51); MEAN CORPUSCULAR HEMOGLOBIN 31.2 PG (27.0-31.0); MEAN CORPUSCULAR HGB CONC 31.7 % (33.0-36.5); MEAN CORPUSCULAR VOLUME 98.3 FL (78-98); MEAN PLATELET VOLUME 11.9 FL (7.4-10.4); MONOCYTES # (AUTO) 1.2 X10'3 (0-0.9); MONOCYTES % (AUTO) 4.5 % (2-12); NEUTROPHILS # (AUTO) 22.9 X10'3 (1.8-7.7); NEUTROPHILS % (AUTO) 89.8 % (42-75); PLATELET COUNT 130 X10'3 (140-440); RED BLOOD COUNT 2.68 X10'6 (4.20-5.60)
[2018-10-10] MEDS: ipratropium/albuterol 3ml nebule NEB SCH ×6 (03:16→23:15)
[2018-10-10 03:28] LABS: ALANINE AMINOTRANSFERASE 138 U/L (12-78); ALBUMIN 1.4 G/DL (3.4-5.0); ALBUMIN/GLOBULIN RATIO 0.4 (1.1-1.5); ALKALINE PHOSPHATASE 289 IU/L (46-116); ANION GAP 13 (8-16); ASPARTATE AMINO TRANSFERASE 50 U/L (10-37); BLOOD UREA NITROGEN 52 MG/DL (7-18); BUN/CREATININE RATIO 67.5 (6.6-38.0); CALCIUM 7.4 MG/DL (8.5-10.1); CHLORIDE 117 MMOL/L (99-107); CREATININE 0.77 MG/DL (0.40-0.90); GLUCOSE 109 MG/DL (70-104); PHOSPHORUS 2.5 MG/DL (2.3-4.5); POTASSIUM 4.5 MMOL/L (3.5-5.1); SODIUM 149 MMOL/L (135-145); TOTAL CARBON DIOXIDE 19.5 MMOL/L (24-32); TOTAL PROTEIN 4.9 G/DL (6.4-8.2); eGFR 75 ML/MIN
[2018-10-10 03:32] LABS: WHITE BLOOD COUNT 25.7 X10'3 (4.5-11.0)
[2018-10-10 03:54] LABS: INR 1.3 INR; PROTHROMBIN TIME 13.4 SECONDS (9.0-12.0)
[2018-10-10 04:01] LABS: ANISOCYTOSIS 2+; NUCLEATED RED BLOOD CELLS 1 /100WBC (0-0); PLATELET ESTIMATE NORMAL; TOTAL CELLS COUNTED 100
[2018-10-10 04:02] LABS: HYPOCHROMASIA 1+; LARGE PLATELETS FEW; TARGET CELLS 1+
[2018-10-10 04:10] LABS: ABG BASE EXCESS -6.2 mmol/L (-2.0-3.0); ABG HCO3 16.1 mmol/L (22.0-26.0); ABG OXYGEN SATURATION 96.1 % (95-98); ABG PCO2 (T) 22.9 mmHg (32.0-45.0); ABG PH (T) 7.468 (7.350-7.450); ABG PO2 (T) 91.5 mmHg (83-108); ALLEN'S TEST Positive; FCOHb 0.4 % (0.5-1.5); FMetHb 0.1 % (0.3-1.12); FO2Hb 95.6 % (94-100); MINUTE VOLUME 10 L/min; PEEP 5 cm H2O; RESPIRATORY RATE 20 b/min; RESPIRATORY RATE (OBSERVED) 26 b/min; TIDAL VOLUME 400 mL; TOTAL HEMOGLOBIN 8.9 G/dl (12.0-16.0)
[2018-10-10] MEDS ORDERED: morphine 4 MG/ML inj SYRINge IV ONE (05:15)
--- NOTE | 2018-10-10 05:41 | NUR ---
Late entry. Called Xiao Hobson [employer] regarding pts increased work of breathing and respiratory rate, and increased heart rate. received one time order for morphine. Will continue to monitor.
[2018-10-10] MEDS: LORazepam 0.5 MG tablet PO PRN (05:48)
--- NOTE | 2018-10-10 06:15 | NUR ---
Patient in room CICU 2013. I have received report from DELVIS Pulido and had the opportunity to ask questions and assume patient care.
--- NOTE | 2018-10-10 06:35 | NUR ---
Problems reprioritized. Patient report given, questions answered & plan of care reviewed with Chico RN.
[2018-10-10] MEDS: NYSTATIN CREAM - 30GM TUBE TP SCH ×2 (07:51→20:18)
[2018-10-10] MEDS: cyanocobalamin 500mcg tablet PO SCH (07:52)
[2018-10-10] MEDS: carvedilol 6.25mg tablet PO SCH ×2 (07:52→20:17)
[2018-10-10] MEDS: lactobacillus rhamnosus 10,000 MMU CELLS/CAPSULE PO SCH ×2 (07:52→20:17)
[2018-10-10] MEDS: vitamin D (cholecalciferol) 1,000 unit tablet PO SCH (07:52)
[2018-10-10] MEDS: apixaban 5mg tablet PO SCH ×2 (07:52→20:17)
[2018-10-10] MEDS: FLUoxetine 20mg capsule PO SCH (07:52)
[2018-10-10] MEDS: cefepime 2g/NS 100ml ADVANTAGE 100 ML IV SCH (07:53)
[2018-10-10] MEDS: famotidine/PF 10 mg/ml inj IV SCH ×2 (07:53→20:17)
[2018-10-10] MEDS: fluconazole/NS 400mg/200ml bag 200 ML IV SCH (07:53)
[2018-10-10] MEDS: furosemide 20 MG/2 ML vial IV SCH ×2 (07:53→20:17)
[2018-10-10] MEDS ORDERED: hydrocortisone sod succ/PF 100mg/2ml inj. IV SCH (08:00)
[2018-10-10] MEDS: K, MAG and/or Phos replacement - Verify level? MC SCH (08:14)
[2018-10-10] MEDS: meropenem inj 1 GM in normal saline 100ml IV soln 100 ML IV SCH ×2 (11:03→16:11)
[2018-10-10] MEDS: vancomycin inj 1,250 MG in normal saline 250ml IV soln 250 ML IV SCH ×2 (11:21→22:55)
[2018-10-10] MEDS: lactose-reduced food (Ensure High Protein) 237ml bottle PO SCH ×2 (12:36→13:36)
--- NOTE | 2018-10-10 18:09 | NUR ---
Problems reprioritized. Patient report given, questions answered & plan of care reviewed with DELVIS Pulido.
--- NOTE | 2018-10-10 18:10 | NUR ---
Patient in room CICU 2012. I have received report from Chico EDMONDSON and had the opportunity to ask questions and assume patient care. Pt on vent on CPAP mode via ETT with FiO2 at 25%, spo2 at 99%. Precedex gtt infusing via central line. Tube feedings per orders, Servin cath to gravity drainage. All monitoring alarms audible. See interventions for further information. Will continue to monitor.
[2018-10-10] MEDS: dextrose 50%-water 50ml dispensing syringe IV PRN (20:12)
--- NOTE | 2018-10-10 20:15 | NUR ---
Spoke with Xiao Hobson COMPUTER REPAIR TECHNICIAN regarding Lantus and pt current BG of 44, per Xiao Hobson administer 12units Lantus instead of 17units that pt received last HS.
[2018-10-10] MEDS: insulin glargine (Lantus) pen - multi-dose SQ SCH (20:40)
[2018-10-10 22:04] LABS: MAGNESIUM 1.9 MG/DL (1.5-2.4); POTASSIUM 3.7 MMOL/L (3.5-5.1)
[2018-10-10] MEDS ORDERED: magnesium 2GM in 50ml NS 50 ML IV ONE (22:15)
[2018-10-10] MEDS: potassium Cl oral solution 20 MEQ/15 ML PO PRN (22:22)
[2018-10-11] VITALS (24 sets, daily range): BP systolic 75–140; BP diastolic 41–91
[2018-10-11] MEDS: meropenem inj 1 GM in normal saline 100ml IV soln 100 ML IV SCH ×3 (00:28→15:41)
[2018-10-11] MEDS: metoclopramide 5 mg/ml inj IV SCH ×2 (02:09→07:40)
[2018-10-11] MEDS: mineral oil/petrolatum ophthal oint EACHEYE SCH ×4 (02:09→19:53)
[2018-10-11] MEDS: dexmedetomidin/NS 400mcg/100ml 100 ML IV SCH ×3 (02:10→18:24)
[2018-10-11] MEDS: potassium Cl oral solution 20 MEQ/15 ML PO PRN ×2 (02:10→05:47)
[2018-10-11] MEDS: dextrose 50%-water 50ml dispensing syringe IV PRN (02:14)
[2018-10-11 03:09] LABS: BASOPHILS % (AUTO) 0 % (0-1); EOSINOPHILS # (AUTO) 0.1 X10'3 (0-0.9); EOSINOPHILS % (AUTO) 0.6 % (0-6); HEMATOCRIT 24.3 % (35.0-45.0); HEMOGLOBIN 7.7 g/dl (12.0-16.0); LYMPHOCYTES # (AUTO) 0.8 X10'3 (1.1-4.8); LYMPHOCYTES % (AUTO) 3.4 % (21-51); MEAN CORPUSCULAR HEMOGLOBIN 31.9 PG (27.0-31.0); MEAN CORPUSCULAR HGB CONC 31.7 % (33.0-36.5); MEAN CORPUSCULAR VOLUME 100.8 FL (78-98); MEAN PLATELET VOLUME 11.6 FL (7.4-10.4); MONOCYTES # (AUTO) 0.7 X10'3 (0-0.9); MONOCYTES % (AUTO) 3.1 % (2-12); NEUTROPHILS # (AUTO) 21.4 X10'3 (1.8-7.7); NEUTROPHILS % (AUTO) 92.9 % (42-75); PLATELET COUNT 139 X10'3 (140-440); RED BLOOD COUNT 2.41 X10'6 (4.20-5.60); RED CELL DISTRIBUTION WIDTH 19.9 % (11.5-14.5)
[2018-10-11] MEDS: ipratropium/albuterol 3ml nebule NEB SCH ×6 (03:17→23:01)
[2018-10-11 03:31] LABS: ABG BASE EXCESS -3.5 mmol/L (-2.0-3.0); ABG OXYGEN SATURATION 95.8 % (95-98); ABG PCO2 (T) 30.1 mmHg (32.0-45.0); ABG PO2 (T) 80.6 mmHg (83-108); ALLEN'S TEST Positive; FMetHb 0.3 % (0.3-1.12); FO2Hb 94.6 % (94-100); MINUTE VOLUME 11 L/min; PEEP 5 cm H2O; TOTAL HEMOGLOBIN 8.5 G/dl (12.0-16.0)
[2018-10-11 03:45] LABS: INR 1.2 INR; PROTHROMBIN TIME 12.3 SECONDS (9.0-12.0)
[2018-10-11 04:07] LABS: ALANINE AMINOTRANSFERASE 122 U/L (12-78); ALBUMIN 1.3 G/DL (3.4-5.0); ALBUMIN/GLOBULIN RATIO 0.4 (1.1-1.5); ALKALINE PHOSPHATASE 266 IU/L (46-116); ANION GAP 11 (8-16); ASPARTATE AMINO TRANSFERASE 53 U/L (10-37); BILIRUBIN,TOTAL 0.9 MG/DL (0.1-1.0); BLOOD UREA NITROGEN 48 MG/DL (7-18); BUN/CREATININE RATIO 65.8 (6.6-38.0); CALCIUM 7.5 MG/DL (8.5-10.1); CHLORIDE 115 MMOL/L (99-107); CREATININE 0.73 MG/DL (0.40-0.90); GLUCOSE 56 MG/DL (70-104); MAGNESIUM 2.2 MG/DL (1.5-2.4); PHOSPHORUS 3.5 MG/DL (2.3-4.5); SODIUM 148 MMOL/L (135-145); TOTAL PROTEIN 4.8 G/DL (6.4-8.2); eGFR 80 ML/MIN
[2018-10-11 04:32] LABS: ANISOCYTOSIS 2+; HYPOCHROMASIA 1+; LARGE PLATELETS FEW; NUCLEATED RED BLOOD CELLS 2 /100WBC (0-0); PLATELET ESTIMATE NORMAL; TARGET CELLS 1+; TOTAL CELLS COUNTED 100
--- NOTE | 2018-10-11 04:57 | NUR ---
Late entry: 2132 pt had 8 beat run of vtach. BP stable. obtained potassium and magnesium levels, replacing K for level of 3.7 and obtained order for one time 2gm mag for level of 1.9 from Xiao Hobson NP.
--- NOTE | 2018-10-11 06:15 | NUR ---
Patient in room CICU 2010. I have received report from DELVIS Pulido and had the opportunity to ask questions and assume patient care.
--- NOTE | 2018-10-11 06:26 | NUR ---
Problems reprioritized. Patient report given, questions answered & plan of care reviewed with Chico RN.
[2018-10-11] MEDS: K, MAG and/or Phos replacement - Verify level? MC SCH (07:30)
[2018-10-11] MEDS: FLUoxetine 20mg capsule PO SCH (07:40)
[2018-10-11] MEDS: famotidine/PF 10 mg/ml inj IV SCH ×2 (07:40→19:53)
[2018-10-11] MEDS: carvedilol 6.25mg tablet PO SCH ×2 (07:40→20:00)
[2018-10-11] MEDS: furosemide 20 MG/2 ML vial IV SCH (07:40)
[2018-10-11] MEDS: apixaban 5mg tablet PO SCH ×2 (07:40→19:53)
[2018-10-11] MEDS: lactobacillus rhamnosus 10,000 MMU CELLS/CAPSULE PO SCH ×2 (07:40→19:53)
[2018-10-11] MEDS: vitamin D (cholecalciferol) 1,000 unit tablet PO SCH (07:41)
[2018-10-11] MEDS: cyanocobalamin 500mcg tablet PO SCH (07:41)
[2018-10-11] MEDS: NYSTATIN CREAM - 30GM TUBE TP SCH ×2 (07:42→19:53)
[2018-10-11] MEDS: fluconazole/NS 400mg/200ml bag 200 ML IV SCH (08:27)
[2018-10-11] MEDS ORDERED: normal saline 1000ml 1,000 ML IV ONE (08:50)
[2018-10-11] MEDS ORDERED: VANCOMYCIN LEVEL IV ONE (10:30)
[2018-10-11 10:53] LABS: C DIFFICILE TOXINS A&B NEGATIVE (Neg)
[2018-10-11 10:54] LABS: C DIFF ANTIGEN NEGATIVE (NEGATIVE); C DIFF SPECIMEN=DIARRHEA? ACCEPTABLE
[2018-10-11] MEDS: vancomycin inj. 750 MG in normal saline 250ml IV soln 250 ML IV SCH (12:54)
--- NOTE | 2018-10-11 16:31 | NUR ---
Paged Stroke RN for CT reading. Waiting for orders. Will continue to monitor.
[2018-10-11 17:55] LABS: ALANINE AMINOTRANSFERASE 120 U/L (12-78); ALBUMIN 1.3 G/DL (3.4-5.0); ALBUMIN/GLOBULIN RATIO 0.4 (1.1-1.5); ALKALINE PHOSPHATASE 319 IU/L (46-116); ANION GAP 12 (8-16); ASPARTATE AMINO TRANSFERASE 48 U/L (10-37); BILIRUBIN,TOTAL 0.9 MG/DL (0.1-1.0); BLOOD UREA NITROGEN 47 MG/DL (7-18); CALCIUM 7.4 MG/DL (8.5-10.1); CREATININE 0.78 MG/DL (0.40-0.90); GLUCOSE 107 MG/DL (70-104); POTASSIUM 4.8 MMOL/L (3.5-5.1); SODIUM 147 MMOL/L (135-145); TOTAL CARBON DIOXIDE 20.9 MMOL/L (24-32); eGFR 74 ML/MIN
--- NOTE | 2018-10-11 17:59 | NUR ---
Problems reprioritized. Patient report given, questions answered & plan of care reviewed with DELVIS Pulido.
--- NOTE | 2018-10-11 18:05 | NUR ---
Patient in room CICU 2010. I have received report from Chico EDMONDSON and had the opportunity to ask questions and assume patient care. Pt resting in bed at 25% fio2 on CPAP mode, spo2 at 99%, precedex gtt. See interventions. Will continue to monitor.
[2018-10-11 18:07] LABS: CHLORIDE 114 MMOL/L (99-107)
[2018-10-11 18:08] LABS: BUN/CREATININE RATIO 60.3 (6.6-38.0)
--- NOTE | 2018-10-11 19:10 | NUR ---
spoke with tele neuro, they are scheduling appointment for between [phone] tomorrow, notified Dr. Ang.
[2018-10-11] MEDS: insulin glargine (Lantus) pen - multi-dose SQ SCH (20:08)
--- NOTE | 2018-10-11 22:57 | NUR ---
at 2255 pt had 13 beat run of v-tach, called Xiao Hobson NP, orders for chem panel and one time dose of Mg IV 2gm, prior mg level was 2.0.
[2018-10-11] MEDS ORDERED: magnesium 2GM in 50ml NS 50 ML IV ONE (23:10)
[2018-10-12] VITALS (24 sets, daily range): BP systolic 102–130; BP diastolic 52–80
[2018-10-12 00:06] LABS: ALANINE AMINOTRANSFERASE 122 U/L (12-78); ALBUMIN 1.4 G/DL (3.4-5.0); ALBUMIN/GLOBULIN RATIO 0.4 (1.1-1.5); ALKALINE PHOSPHATASE 357 IU/L (46-116); ANION GAP 10 (8-16); ASPARTATE AMINO TRANSFERASE 48 U/L (10-37); BILIRUBIN,TOTAL 0.9 MG/DL (0.1-1.0); BLOOD UREA NITROGEN 46 MG/DL (7-18); BUN/CREATININE RATIO 60.5 (6.6-38.0); CALCIUM 7.7 MG/DL (8.5-10.1); CHLORIDE 114 MMOL/L (99-107); CREATININE 0.76 MG/DL (0.40-0.90); GLUCOSE 127 MG/DL (70-104); PHOSPHORUS 4.4 MG/DL (2.3-4.5); POTASSIUM 4.7 MMOL/L (3.5-5.1); SODIUM 146 MMOL/L (135-145); TOTAL CARBON DIOXIDE 22.4 MMOL/L (24-32); TOTAL PROTEIN 5.4 G/DL (6.4-8.2); eGFR 76 ML/MIN
[2018-10-12] MEDS: meropenem inj 1 GM in normal saline 100ml IV soln 100 ML IV SCH ×4 (00:22→23:52)
[2018-10-12] MEDS: vancomycin inj. 750 MG in normal saline 250ml IV soln 250 ML IV SCH ×2 (01:41→12:56)
[2018-10-12] MEDS: dexmedetomidin/NS 400mcg/100ml 100 ML IV SCH ×3 (01:41→19:06)
[2018-10-12] MEDS: mineral oil/petrolatum ophthal oint EACHEYE SCH ×4 (02:00→21:55)
[2018-10-12] MEDS: ipratropium/albuterol 3ml nebule NEB SCH ×6 (03:20→23:07)
[2018-10-12 03:55] LABS: BASOPHILS # (AUTO) 0.2 X10'3 (0-0.2); BASOPHILS % (AUTO) 0.9 % (0-1); EOSINOPHILS % (AUTO) 0.1 % (0-6); HEMATOCRIT 26.5 % (35.0-45.0); HEMOGLOBIN 8.2 g/dl (12.0-16.0); LYMPHOCYTES # (AUTO) 0.9 X10'3 (1.1-4.8); LYMPHOCYTES % (AUTO) 4.5 % (21-51); MEAN CORPUSCULAR VOLUME 103.2 FL (78-98); MEAN PLATELET VOLUME 11.5 FL (7.4-10.4); MONOCYTES # (AUTO) 1.1 X10'3 (0-0.9); MONOCYTES % (AUTO) 5.5 % (2-12); NEUTROPHILS # (AUTO) 18.6 X10'3 (1.8-7.7); PLATELET COUNT 142 X10'3 (140-440); RED BLOOD COUNT 2.57 X10'6 (4.20-5.60); RED CELL DISTRIBUTION WIDTH 26.8 % (11.5-14.5); WHITE BLOOD COUNT 20.8 X10'3 (4.5-11.0)
[2018-10-12 03:55] LABS: ABG BASE EXCESS -3.7 mmol/L (-2.0-3.0); ABG HCO3 19.3 mmol/L (22.0-26.0); ABG OXYGEN SATURATION 95.4 % (95-98); ABG PCO2 (T) 28.9 mmHg (32.0-45.0); ABG PH (T) 7.447 (7.350-7.450); ABG PO2 (T) 85.5 mmHg (83-108); ALLEN'S TEST Positive; FCOHb 0.5 % (0.5-1.5); FMetHb 0.1 % (0.3-1.12); FO2Hb 94.8 % (94-100); MINUTE VOLUME 12 L/min; PEEP 5 cm H2O; RESPIRATORY RATE 22 b/min; RESPIRATORY RATE (OBSERVED) 28 b/min; TIDAL VOLUME 400 mL; TOTAL HEMOGLOBIN 8.9 G/dl (12.0-16.0)
[2018-10-12 04:04] LABS: ALANINE AMINOTRANSFERASE 117 U/L (12-78); ALBUMIN 1.4 G/DL (3.4-5.0); ALBUMIN/GLOBULIN RATIO 0.4 (1.1-1.5); ALKALINE PHOSPHATASE 361 IU/L (46-116); ANION GAP 11 (8-16); ASPARTATE AMINO TRANSFERASE 43 U/L (10-37); BILIRUBIN,TOTAL 0.9 MG/DL (0.1-1.0); BLOOD UREA NITROGEN 47 MG/DL (7-18); CALCIUM 7.6 MG/DL (8.5-10.1); CHLORIDE 113 MMOL/L (99-107); CREATININE 0.84 MG/DL (0.40-0.90); GLUCOSE 151 MG/DL (70-104); MAGNESIUM 2.3 MG/DL (1.5-2.4); PHOSPHORUS 4.1 MG/DL (2.3-4.5); POTASSIUM 4.7 MMOL/L (3.5-5.1); SODIUM 146 MMOL/L (135-145); TOTAL CARBON DIOXIDE 22.3 MMOL/L (24-32); TOTAL PROTEIN 5.3 G/DL (6.4-8.2); eGFR 68 ML/MIN
[2018-10-12 04:06] LABS: INR 1.2 INR; PARTIAL THROMBOPLASTIN TIME 25 SECONDS (22-32); PROTHROMBIN TIME 12.2 SECONDS (9.0-12.0)
[2018-10-12 04:30] LABS: PLATELET ESTIMATE NORMAL
[2018-10-12 04:31] LABS: LARGE PLATELETS FEW
[2018-10-12 04:33] LABS: ANISOCYTOSIS 3+; HYPOCHROMASIA 1+; TARGET CELLS FEW
--- NOTE | 2018-10-12 06:00 | NUR ---
Patient in room CICU 2010. I have received report from DELVIS Pulido and had the opportunity to ask questions and assume patient care.
--- NOTE | 2018-10-12 06:24 | NUR ---
Problems reprioritized. Patient report given, questions answered & plan of care reviewed with Chico RN.
[2018-10-12] MEDS: K, MAG and/or Phos replacement - Verify level? MC SCH (07:29)
[2018-10-12] MEDS: vitamin D (cholecalciferol) 1,000 unit tablet PO SCH (07:37)
[2018-10-12] MEDS: lactobacillus rhamnosus 10,000 MMU CELLS/CAPSULE PO SCH ×2 (07:38→21:55)
[2018-10-12] MEDS: carvedilol 6.25mg tablet PO SCH ×2 (07:38→20:00)
[2018-10-12] MEDS: cyanocobalamin 500mcg tablet PO SCH (07:38)
[2018-10-12] MEDS: apixaban 5mg tablet PO SCH ×2 (07:38→21:55)
[2018-10-12] MEDS: FLUoxetine 20mg capsule PO SCH (07:38)
[2018-10-12] MEDS: famotidine/PF 10 mg/ml inj IV SCH ×2 (07:39→21:55)
[2018-10-12] MEDS: NYSTATIN CREAM - 30GM TUBE TP SCH ×2 (07:39→21:55)
[2018-10-12] MEDS: fluconazole/NS 400mg/200ml bag 200 ML IV SCH (07:54)
--- NOTE | 2018-10-12 12:25 | NUR ---
Reassessment 10/12: Pt remains intubated now tolerating TF at goal rate with Vital AF at 55 mL/hr with low residuals. Patient had an increase in liquid stools total between 200-570 ml stool output in the past two days, will continue to follow. Recommend 1. Continue tube feeding per NG tube using Vital AF at 55 ml/hr to provide total volume of 1320 ml/hr, 1584 cals, 89 gm protein, 1008 ml free water. 2. Continue water flush 200 q 4 3. Prealbumin q / 4. daily wt Addendum: 10/12/18 at [address] Amended: Links added.
[2018-10-12] MEDS: lactose-reduced food (Ensure High Protein) 237ml bottle PO SCH (12:48)
--- NOTE | 2018-10-12 17:37 | NUR ---
Called [facility] [phone] to have MRI read. Waiting for call back. Stroke RN set up camera in room 2011b
--- NOTE | 2018-10-12 18:10 | NUR ---
Patient in room CICU 2010. I have received report from Chico EDMONDSON and had the opportunity to ask questions and assume patient care. Pt on vent at 25% Fio2 with spo2 of 98%, pt on Precedex gtt infusing via right upper arm extended PIV. All monitoring alarms are audible. Patients family at bedside. Will continue to monitor.
--- NOTE | 2018-10-12 18:20 | NUR ---
Problems reprioritized. Patient report given, questions answered & plan of care reviewed with DELVIS Pulido.
[2018-10-12] MEDS ORDERED: iohexol 350MG/ML 100ml bottle IV ONE (19:33)
--- NOTE | 2018-10-12 19:35 | NUR ---
To CT scan.
[2018-10-12] MEDS: insulin glargine (Lantus) pen - multi-dose SQ SCH (22:11)
[2018-10-13] VITALS (28 sets, daily range): BP systolic 97–162; BP diastolic 59–86
[2018-10-13] MEDS ORDERED: VANCOMYCIN LEVEL IV ONE (00:30)
[2018-10-13 01:24] LABS: BASOPHILS % (AUTO) 0.2 % (0-1); EOSINOPHILS % (AUTO) 0.1 % (0-6); HEMATOCRIT 23.7 % (35.0-45.0); HEMOGLOBIN 7.3 g/dl (12.0-16.0); LYMPHOCYTES # (AUTO) 0.9 X10'3 (1.1-4.8); LYMPHOCYTES % (AUTO) 5.5 % (21-51); MEAN CORPUSCULAR HEMOGLOBIN 31.8 PG (27.0-31.0); MEAN CORPUSCULAR HGB CONC 30.8 % (33.0-36.5); MEAN CORPUSCULAR VOLUME 103.1 FL (78-98); MEAN PLATELET VOLUME 11.3 FL (7.4-10.4); MONOCYTES # (AUTO) 1.1 X10'3 (0-0.9); MONOCYTES % (AUTO) 6.8 % (2-12); NEUTROPHILS # (AUTO) 13.6 X10'3 (1.8-7.7); NEUTROPHILS % (AUTO) 87.4 % (42-75); PLATELET COUNT 125 X10'3 (140-440); RED CELL DISTRIBUTION WIDTH 27.4 % (11.5-14.5); WHITE BLOOD COUNT 15.6 X10'3 (4.5-11.0)
[2018-10-13] MEDS: vancomycin inj. 750 MG in normal saline 250ml IV soln 250 ML IV SCH (01:24)
[2018-10-13 01:28] LABS: ALANINE AMINOTRANSFERASE 86 U/L (12-78); ALBUMIN 1.3 G/DL (3.4-5.0); ALBUMIN/GLOBULIN RATIO 0.4 (1.1-1.5); ALKALINE PHOSPHATASE 274 IU/L (46-116); ANION GAP 10 (8-16); ASPARTATE AMINO TRANSFERASE 30 U/L (10-37); BILIRUBIN,TOTAL 0.7 MG/DL (0.1-1.0); BLOOD UREA NITROGEN 42 MG/DL (7-18); BUN/CREATININE RATIO 56.8 (6.6-38.0); CALCIUM 7.4 MG/DL (8.5-10.1); CHLORIDE 113 MMOL/L (99-107); CREATININE 0.74 MG/DL (0.40-0.90); GLUCOSE 107 MG/DL (70-104); POTASSIUM 3.6 MMOL/L (3.5-5.1); SODIUM 146 MMOL/L (135-145); TOTAL CARBON DIOXIDE 22.8 MMOL/L (24-32); TOTAL PROTEIN 4.7 G/DL (6.4-8.2); eGFR 79 ML/MIN
[2018-10-13 01:29] LABS: MAGNESIUM 2.1 MG/DL (1.5-2.4); PHOSPHORUS 3.2 MG/DL (2.3-4.5)
[2018-10-13 01:34] LABS: INR 1.3 INR; PARTIAL THROMBOPLASTIN TIME 27 SECONDS (22-32); PROTHROMBIN TIME 12.7 SECONDS (9.0-12.0); VANCOMYCIN,TROUGH 27.3 UG/ML (6.0-14.0)
[2018-10-13 01:49] LABS: LARGE PLATELETS FEW; PLATELET ESTIMATE DECREASED
[2018-10-13 01:50] LABS: ANISOCYTOSIS 3+; HYPOCHROMASIA 1+; TARGET CELLS 1+
[2018-10-13] MEDS: mineral oil/petrolatum ophthal oint EACHEYE SCH ×4 (02:00→21:11)
[2018-10-13] MEDS: ipratropium/albuterol 3ml nebule NEB SCH ×6 (02:57→22:28)
[2018-10-13] MEDS: dexmedetomidin/NS 400mcg/100ml 100 ML IV SCH ×2 (03:54→21:32)
[2018-10-13] MEDS: potassium Cl oral solution 20 MEQ/15 ML PO PRN ×4 (03:54→16:17)
--- NOTE | 2018-10-13 06:30 | NUR ---
Problems reprioritized. Patient report given, questions answered & plan of care reviewed with Bryan RN.
[2018-10-13] MEDS ORDERED: gadopentetate dimeglumine 7.5 MMOL/15 ML syringe ONE (07:36)
[2018-10-13] MEDS: vitamin D (cholecalciferol) 1,000 unit tablet PO SCH (07:40)
[2018-10-13] MEDS: lactobacillus rhamnosus 10,000 MMU CELLS/CAPSULE PO SCH ×2 (07:40→21:14)
[2018-10-13] MEDS: FLUoxetine 20mg capsule PO SCH (07:41)
[2018-10-13] MEDS: apixaban 5mg tablet PO SCH ×2 (07:41→21:12)
[2018-10-13] MEDS: cyanocobalamin 500mcg tablet PO SCH (07:41)
[2018-10-13] MEDS: famotidine/PF 10 mg/ml inj IV SCH ×2 (07:41→21:11)
[2018-10-13] MEDS: fluconazole/NS 400mg/200ml bag 200 ML IV SCH (07:42)
[2018-10-13] MEDS: carvedilol 6.25mg tablet PO SCH (07:42)
[2018-10-13] MEDS: meropenem inj 1 GM in normal saline 100ml IV soln 100 ML IV SCH ×2 (07:42→16:09)
[2018-10-13] MEDS: K, MAG and/or Phos replacement - Verify level? MC SCH (07:43)
[2018-10-13] MEDS: NYSTATIN CREAM - 30GM TUBE TP SCH ×2 (08:00→21:14)
[2018-10-13] MEDS ORDERED: iron sucrose complex injection 100 MG in normal saline 100ml IV soln 95 ML IV SCH (09:40)
[2018-10-13] MEDS ORDERED: VANCOMYCIN LEVEL IV NR (12:30)
[2018-10-13] MEDS: lactose-reduced food (Ensure High Protein) 237ml bottle PO SCH (12:30)
[2018-10-13] MEDS: sodium ferric gluc complex inj 125 MG in normal saline 100ml IV soln 100 ML IV SCH (12:40)
[2018-10-13] MEDS: furosemide 20 MG/2 ML vial IV SCH ×2 (14:31→21:11)
--- NOTE | 2018-10-13 18:30 | NUR ---
Patient in room CICU 2010. I have received report from Bryan EDMONDSON, and had the opportunity to ask questions and assume patient care.
[2018-10-13 19:29] LABS: ABG BASE EXCESS -1.7 mmol/L (-2.0-3.0); ABG HCO3 21.7 mmol/L (22.0-26.0); ABG OXYGEN SATURATION 96.4 % (95-98); ABG PCO2 (T) 31.5 mmHg (32.0-45.0); ABG PH (T) 7.458 (7.350-7.450); ABG PO2 (T) 89.2 mmHg (83-108); ALLEN'S TEST Positive; FCOHb 0.7 % (0.5-1.5); FMetHb 0.2 % (0.3-1.12); FO2Hb 95.5 % (94-100); MINUTE VOLUME 11 L/min; PATIENT TEMPERATURE 37.2; PEEP 5 cm H2O; RESPIRATORY RATE 22 b/min; RESPIRATORY RATE (OBSERVED) 25 b/min; TIDAL VOLUME 400 mL; TOTAL HEMOGLOBIN 7.9 G/dl (12.0-16.0)
--- NOTE | 2018-10-13 20:00 | NUR ---
PT resting with no s/s of distress noted at this time. VSS. PT is intubated and mechanically vented, Precedex is running @ 14.64ml/hr. PT tolerating well, O2 sat >98%. PT opens eyes to name, able to nod head yes/no to simple questions and able to squeeze with LT hand. Servin in place draining to gravity. Rectal tube in place also draining to gravity. Bed is locked and low. Will continue to monitor.
[2018-10-13] MEDS: thiamine 100mg tablet PO SCH (21:12)
[2018-10-13] MEDS: carVEDilol 3.125mg tablet PO SCH (21:12)
[2018-10-13] MEDS: insulin glargine (Lantus) pen - multi-dose SQ SCH (21:42)
--- NOTE | 2018-10-13 23:00 | NUR ---
PT resting with s/s of distress noted at this time. VSS. Bed is locked and low. Will continue to monitor.
[2018-10-14] VITALS (24 sets, daily range): BP systolic 98–129; BP diastolic 53–85
[2018-10-14] MEDS: meropenem inj 1 GM in normal saline 100ml IV soln 100 ML IV SCH ×3 (00:19→16:00)
--- NOTE | 2018-10-14 02:00 | NUR ---
PT continues to rest with s/s of distress noted at this time. VSS. Bed is locked and low. Will continue to monitor.
[2018-10-14 02:27] LABS: BASOPHILS % (AUTO) 0.1 % (0-1); EOSINOPHILS # (AUTO) 0.2 X10'3 (0-0.9); EOSINOPHILS % (AUTO) 1.8 % (0-6); HEMATOCRIT 24.8 % (35.0-45.0); HEMOGLOBIN 7.8 g/dl (12.0-16.0); LYMPHOCYTES # (AUTO) 0.9 X10'3 (1.1-4.8); LYMPHOCYTES % (AUTO) 6.2 % (21-51); MEAN CORPUSCULAR HEMOGLOBIN 32.4 PG (27.0-31.0); MEAN CORPUSCULAR HGB CONC 31.4 % (33.0-36.5); MEAN CORPUSCULAR VOLUME 103.3 FL (78-98); MEAN PLATELET VOLUME 11.3 FL (7.4-10.4); MONOCYTES # (AUTO) 0.7 X10'3 (0-0.9); MONOCYTES % (AUTO) 5.2 % (2-12); NEUTROPHILS # (AUTO) 11.9 X10'3 (1.8-7.7); NEUTROPHILS % (AUTO) 86.7 % (42-75); PLATELET COUNT 139 X10'3 (140-440); RED CELL DISTRIBUTION WIDTH 28.3 % (11.5-14.5); WHITE BLOOD COUNT 13.8 X10'3 (4.5-11.0)
[2018-10-14] MEDS: ipratropium/albuterol 3ml nebule NEB SCH ×6 (02:32→22:24)
[2018-10-14 02:44] LABS: INR 1.3 INR; PARTIAL THROMBOPLASTIN TIME 29 SECONDS (22-32); PROTHROMBIN TIME 12.6 SECONDS (9.0-12.0)
[2018-10-14] MEDS: furosemide 20 MG/2 ML vial IV SCH ×4 (02:50→20:13)
[2018-10-14] MEDS: mineral oil/petrolatum ophthal oint EACHEYE SCH ×4 (02:50→20:13)
[2018-10-14 02:52] LABS: ALANINE AMINOTRANSFERASE 113 U/L (12-78); ALBUMIN 1.3 G/DL (3.4-5.0); ALBUMIN/GLOBULIN RATIO 0.3 (1.1-1.5); ALKALINE PHOSPHATASE 285 IU/L (46-116); ANION GAP 10 (8-16); ASPARTATE AMINO TRANSFERASE 65 U/L (10-37); BILIRUBIN,TOTAL 0.6 MG/DL (0.1-1.0); BLOOD UREA NITROGEN 38 MG/DL (7-18); BUN/CREATININE RATIO 52.8 (6.6-38.0); CALCIUM 7.4 MG/DL (8.5-10.1); CHLORIDE 111 MMOL/L (99-107); CREATININE 0.72 MG/DL (0.40-0.90); GLUCOSE 117 MG/DL (70-104); MAGNESIUM 1.7 MG/DL (1.5-2.4); PHOSPHORUS 2.6 MG/DL (2.3-4.5); POTASSIUM 3.9 MMOL/L (3.5-5.1); SODIUM 145 MMOL/L (135-145); TOTAL CARBON DIOXIDE 23.7 MMOL/L (24-32); TOTAL PROTEIN 5.2 G/DL (6.4-8.2); eGFR 81 ML/MIN
[2018-10-14] MEDS ORDERED: magnesium 4gm in 100ml NS 100 ML IV PRN (03:20)
[2018-10-14] MEDS: potassium Cl oral solution 20 MEQ/15 ML PO PRN ×4 (03:23→22:12)
[2018-10-14 03:44] LABS: ANISOCYTOSIS 3+; PLATELET ESTIMATE DECREASED
[2018-10-14 03:45] LABS: HYPOCHROMASIA 1+; LARGE PLATELETS FEW; POLYCHROMASIA FEW; TARGET CELLS 1+
[2018-10-14 03:51] LABS: ABG BASE EXCESS -0.2 mmol/L (-2.0-3.0); ABG HCO3 21.8 mmol/L (22.0-26.0); ABG OXYGEN SATURATION 97.3 % (95-98); ABG PCO2 (T) 26.7 mmHg (32.0-45.0); ALLEN'S TEST Positive; FCOHb 1.1 % (0.5-1.5); FMetHb 0.2 % (0.3-1.12); MINUTE VOLUME 9 L/min; PATIENT TEMPERATURE 37.3; PEEP 5 cm H2O; RESPIRATORY RATE 22 b/min; RESPIRATORY RATE (OBSERVED) 22 b/min; TIDAL VOLUME 400 mL; TOTAL HEMOGLOBIN 8.9 G/dl (12.0-16.0)
--- NOTE | 2018-10-14 06:53 | NUR ---
Problems reprioritized. Patient report given, questions answered & plan of care reviewed with Bryan RN.
[2018-10-14] MEDS: carVEDilol 3.125mg tablet PO SCH ×2 (07:49→20:13)
[2018-10-14] MEDS: folic acid 1mg tablet PO SCH (07:50)
[2018-10-14] MEDS: FLUoxetine 20mg capsule PO SCH (07:50)
[2018-10-14] MEDS: lactobacillus rhamnosus 10,000 MMU CELLS/CAPSULE PO SCH ×2 (07:51→20:12)
[2018-10-14] MEDS: apixaban 5mg tablet PO SCH ×2 (07:51→20:13)
[2018-10-14] MEDS: cyanocobalamin 500mcg tablet PO SCH (07:51)
[2018-10-14] MEDS: thiamine 100mg tablet PO SCH ×2 (07:52→20:12)
[2018-10-14] MEDS: famotidine/PF 10 mg/ml inj IV SCH ×2 (07:52→20:12)
[2018-10-14] MEDS: multivitamins, therapeutics tablet PO SCH (07:52)
[2018-10-14] MEDS: fluconazole/NS 400mg/200ml bag 200 ML IV SCH (07:53)
[2018-10-14] MEDS: NYSTATIN CREAM - 30GM TUBE TP SCH ×2 (07:53→20:13)
[2018-10-14] MEDS: vitamin D (cholecalciferol) 1,000 unit tablet PO SCH (08:21)
[2018-10-14] MEDS: K, MAG and/or Phos replacement - Verify level? MC SCH (08:21)
[2018-10-14] MEDS: sodium ferric gluc complex inj 125 MG in normal saline 100ml IV soln 100 ML IV SCH (10:00)
--- NOTE | 2018-10-14 10:00 | NUR ---
Pt has pressure ulcer on coccyx. open area, yellow. placed orange cream and new foam dsg
[2018-10-14] MEDS: lactose-reduced food (Ensure High Protein) 237ml bottle PO SCH (12:30)
--- NOTE | 2018-10-14 18:30 | NUR ---
Patient in room CICU 2010. I have received report from Bryan EDMONDSON, and had the opportunity to ask questions and assume patient care.
--- NOTE | 2018-10-14 20:00 | NUR ---
PT resting with no s/s of distress noted at this time. VSS. PT is intubated and mechanically vented, Precedex is running @ 14.64ml/hr. PT tolerating well, O2 sat >98%. PT opens eyes to name, able to nod head yes/no to simple questions and able to squeeze with LT hand, moving toes on both feet. Servin in place draining to gravity. Rectal tube in place also draining to gravity. Bed is locked and low. Will continue to monitor.
[2018-10-14] MEDS: insulin glargine (Lantus) pen - multi-dose SQ SCH (20:22)
[2018-10-14] MEDS: dexmedetomidin/NS 400mcg/100ml 100 ML IV SCH (20:49)
[2018-10-14 21:49] LABS: MAGNESIUM 2.1 MG/DL (1.5-2.4); POTASSIUM 3.9 MMOL/L (3.5-5.1)
--- NOTE | 2018-10-14 23:30 | NUR ---
PT resting with no s/s of distress noted at this time. VSS. Personal hygiene performed, Calazime cream applied. Drsg to coccyx is CDI. Bed is locked and low. Will continue to monitor
[2018-10-15] VITALS (22 sets, daily range): BP systolic 100–132; BP diastolic 59–83
[2018-10-15] MEDS: meropenem inj 1 GM in normal saline 100ml IV soln 100 ML IV SCH ×3 (00:38→16:19)
--- NOTE | 2018-10-15 02:00 | NUR ---
PT continues to rest with no s/s of distress noted at this time. VSS. Bed is locked and low. Will continue to monitor.
[2018-10-15] MEDS: ipratropium/albuterol 3ml nebule NEB SCH ×6 (02:22→22:29)
[2018-10-15] MEDS: mineral oil/petrolatum ophthal oint EACHEYE SCH ×4 (02:35→20:50)
[2018-10-15] MEDS: furosemide 20 MG/2 ML vial IV SCH ×4 (02:35→20:49)
[2018-10-15 02:59] LABS: BASOPHILS % (AUTO) 0.3 % (0-1); EOSINOPHILS # (AUTO) 0.1 X10'3 (0-0.9); EOSINOPHILS % (AUTO) 0.6 % (0-6); HEMATOCRIT 25.2 % (35.0-45.0); HEMOGLOBIN 8.1 g/dl (12.0-16.0); LYMPHOCYTES # (AUTO) 0.7 X10'3 (1.1-4.8); LYMPHOCYTES % (AUTO) 6.8 % (21-51); MEAN CORPUSCULAR HEMOGLOBIN 33.2 PG (27.0-31.0); MEAN CORPUSCULAR VOLUME 103.7 FL (78-98); MONOCYTES # (AUTO) 0.6 X10'3 (0-0.9); MONOCYTES % (AUTO) 5.7 % (2-12); NEUTROPHILS # (AUTO) 8.3 X10'3 (1.8-7.7); NEUTROPHILS % (AUTO) 86.6 % (42-75); PLATELET COUNT 159 X10'3 (140-440); RED BLOOD COUNT 2.43 X10'6 (4.20-5.60); RED CELL DISTRIBUTION WIDTH 26.5 % (11.5-14.5); WHITE BLOOD COUNT 9.7 X10'3 (4.5-11.0)
[2018-10-15 03:04] LABS: INR 1.2 INR; PROTHROMBIN TIME 12.4 SECONDS (9.0-12.0)
[2018-10-15 03:05] LABS: ALANINE AMINOTRANSFERASE 129 U/L (12-78); ALBUMIN 1.3 G/DL (3.4-5.0); ALBUMIN/GLOBULIN RATIO 0.3 (1.1-1.5); ALKALINE PHOSPHATASE 270 IU/L (46-116); ANION GAP 7 (8-16); ASPARTATE AMINO TRANSFERASE 66 U/L (10-37); BILIRUBIN,TOTAL 0.6 MG/DL (0.1-1.0); BLOOD UREA NITROGEN 32 MG/DL (7-18); BUN/CREATININE RATIO 49.2 (6.6-38.0); CALCIUM 7.5 MG/DL (8.5-10.1); CHLORIDE 110 MMOL/L (99-107); CREATININE 0.65 MG/DL (0.40-0.90); GLUCOSE 122 MG/DL (70-104); PHOSPHORUS 2.3 MG/DL (2.3-4.5); POTASSIUM 3.6 MMOL/L (3.5-5.1); SODIUM 143 MMOL/L (135-145); TOTAL CARBON DIOXIDE 26.3 MMOL/L (24-32); TOTAL PROTEIN 5.1 G/DL (6.4-8.2); eGFR > 90 ML/MIN
[2018-10-15] MEDS: potassium Cl oral solution 20 MEQ/15 ML PO PRN ×5 (03:23→21:15)
[2018-10-15 03:31] LABS: ABG BASE EXCESS 5.2 mmol/L (-2.0-3.0); ABG HCO3 26.9 mmol/L (22.0-26.0); ABG PCO2 (T) 28.9 mmHg (32.0-45.0); ABG PH (T) 7.587 (7.350-7.450); ABG PO2 (T) 82.9 mmHg (83-108); ALLEN'S TEST Positive; FCOHb 0.7 % (0.5-1.5); FMetHb 0.2 % (0.3-1.12); FO2Hb 96.1 % (94-100); MINUTE VOLUME 7 L/min; PEEP 5 cm H2O; RESPIRATORY RATE 18 b/min; RESPIRATORY RATE (OBSERVED) 18 b/min; TIDAL VOLUME 400 mL; TOTAL HEMOGLOBIN 9.2 G/dl (12.0-16.0)
[2018-10-15 04:24] LABS: ANISOCYTOSIS 3+; PLATELET ESTIMATE NORMAL
[2018-10-15 04:25] LABS: POLYCHROMASIA FEW; TARGET CELLS 1+
[2018-10-15] MEDS: dexmedetomidin/NS 400mcg/100ml 100 ML IV SCH ×2 (04:43→22:27)
--- NOTE | 2018-10-15 06:15 | NUR ---
Patient in room CICU 2010. I have received report from horticulture superintendent and had the opportunity to ask questions and assume patient care.
--- NOTE | 2018-10-15 06:33 | NUR ---
Problems reprioritized. Patient report given, questions answered & plan of care reviewed with Kayley EDMONDSON.
[2018-10-15] MEDS: K, MAG and/or Phos replacement - Verify level? MC SCH (08:00)
[2018-10-15] MEDS: fluconazole/NS 400mg/200ml bag 200 ML IV SCH (08:32)
[2018-10-15] MEDS: thiamine 100mg tablet PO SCH ×2 (08:32→20:49)
[2018-10-15] MEDS: folic acid 1mg tablet PO SCH (08:32)
[2018-10-15] MEDS: vitamin D (cholecalciferol) 1,000 unit tablet PO SCH (08:33)
[2018-10-15] MEDS: lactobacillus rhamnosus 10,000 MMU CELLS/CAPSULE PO SCH ×2 (08:33→20:49)
[2018-10-15] MEDS: cyanocobalamin 500mcg tablet PO SCH (08:33)
[2018-10-15] MEDS: carVEDilol 3.125mg tablet PO SCH ×2 (08:33→20:49)
[2018-10-15] MEDS: multivitamins, therapeutics tablet PO SCH (08:33)
[2018-10-15] MEDS: apixaban 5mg tablet PO SCH ×2 (08:33→20:49)
[2018-10-15] MEDS: famotidine/PF 10 mg/ml inj IV SCH ×2 (08:38→20:49)
[2018-10-15] MEDS: FLUoxetine 20mg capsule PO SCH (08:43)
[2018-10-15] MEDS: magnesium 2GM in 50ml NS 50 ML IV PRN (09:19)
[2018-10-15] MEDS: sodium ferric gluc complex inj 125 MG in normal saline 100ml IV soln 100 ML IV SCH (10:54)
[2018-10-15] MEDS: NYSTATIN CREAM - 30GM TUBE TP SCH ×2 (11:24→20:51)
--- NOTE | 2018-10-15 11:45 | NUR ---
RECOMMEND: 1. Daily bathing with no rinse skin cleanser. 2. Cream/Lotion to be applied to skin after bathing. 3. Audra care Q shift and prn soiling followed by with Barrier Cream. 4. Turn patient Q 1-2 hrs and reposition with pillows. 5. Float heels to offload pressure. 6. To Sacrum: cleanse wound with NS and pat dry, place therahoney and alginate and cover with hydrophilic foam dressing. Change q3d and PRN soiling. 7. Nutritional consult.
--- NOTE | 2018-10-15 11:47 | NUR ---
PRESSURE ULCER EDUCATION: DEFINITION: A pressure ulcer is an area of skin that breaks down when you stay in one position too long. The constant pressure against the skin reduces the blood flow to that area and the affected tissue dies. CAUSES: "Being bedridden or in a wheelchair "Fragile skin "Having a chronic condition, such as diabetes or vascular disease "Inability to move certain parts of your body without assistance "Older age "Incontinence of urine or stool SYMPTOMS: "A reddened area that DOES NOT turn white when pressed on - this can be the beginning of a pressure ulcer "A blister, deep sore or a crater - these can be advanced pressure ulcers FIRST AID: "Relieve the pressure on this area "Keep the area clean and dry "Call your primary doctor if you see any of the above symptoms "DO NOT massage the area "DO NOT use a donut shaped or ring shaped pillow- these actually interfere with the blood flow and cause complications PREVENTION: "Check for pressure ulcers everyday "Change position at least every two hours to relieve pressure "Use items that help relieve pressure- pillows, sheepskin, foam padding, and powders. "Keep skin clean and dry "Eat healthy well balanced meals "Exercise daily IF YOU SEE ANY OF THESE SYMPTOMS WHILE IN THE HOSPITAL - TELL YOUR NURSE IMMEDIATELY. IF YOU SEE ANY OF THESE SYMPTOMS WHILE AT HOME OR HAVE ANY QUESTIONS OR CONCERNS ABOUT PRESSURE ULCERS - CALL YOUR PRIMARY DOCTOR IMMEDIATELY.
[2018-10-15] MEDS: lactose-reduced food (Ensure High Protein) 237ml bottle PO SCH (12:30)
--- NOTE | 2018-10-15 15:02 | NUR ---
Wound consult d/t pressure ulcer on sacrum. Per [facility] note patient has a unstageable, necrotic pressure ulcer to sacrum, macerated and reddened. Patient continues to tolerate tube feedings with low gastric residuals. Patient's tube feedings providing adequate protein in view of intubation and wound healing needs. Recommend 1. Continue tube feeding per NG tube using Vital AF at 55 ml/hr to provide total volume of 1320 ml/hr, 1584 cals, 89 gm protein, 1008 ml free water. 2. Continue water flush 200 q 4 3. Prealbumin q / 4. daily wt Addendum: 10/15/18 at [address] Amended: Links added.
[2018-10-15] MEDS: normal saline 1000ml 1,000 ML IV SCH (16:21)
--- NOTE | 2018-10-15 18:18 | NUR ---
Problems reprioritized. Patient report given, questions answered & plan of care reviewed with oncoming shift.
--- NOTE | 2018-10-15 18:27 | NUR ---
Patient in room CICU 2010. I have received report from Grecia EDMONDSON, and had the opportunity to ask questions and assume patient care.
[2018-10-15] MEDS: insulin glargine (Lantus) pen - multi-dose SQ SCH (21:27)
[2018-10-16] VITALS (24 sets, daily range): BP systolic 100–154; BP diastolic 53–100
[2018-10-16] MEDS: meropenem inj 1 GM in normal saline 100ml IV soln 100 ML IV SCH ×3 (00:38→15:46)
[2018-10-16] MEDS: ipratropium/albuterol 3ml nebule NEB SCH ×6 (02:27→23:19)
[2018-10-16] MEDS: furosemide 20 MG/2 ML vial IV SCH ×4 (02:30→20:41)
[2018-10-16] MEDS: mineral oil/petrolatum ophthal oint EACHEYE SCH ×4 (02:30→20:41)
[2018-10-16 02:48] LABS: BASOPHILS % (AUTO) 0.2 % (0-1); EOSINOPHILS # (AUTO) 0.2 X10'3 (0-0.9); EOSINOPHILS % (AUTO) 2.2 % (0-6); HEMATOCRIT 24.9 % (35.0-45.0); HEMOGLOBIN 7.9 g/dl (12.0-16.0); LYMPHOCYTES # (AUTO) 0.7 X10'3 (1.1-4.8); LYMPHOCYTES % (AUTO) 8.5 % (21-51); MEAN CORPUSCULAR HEMOGLOBIN 33.1 PG (27.0-31.0); MEAN CORPUSCULAR HGB CONC 31.8 % (33.0-36.5); MEAN CORPUSCULAR VOLUME 104.1 FL (78-98); MEAN PLATELET VOLUME 10.6 FL (7.4-10.4); MONOCYTES # (AUTO) 0.4 X10'3 (0-0.9); MONOCYTES % (AUTO) 5.5 % (2-12); NEUTROPHILS # (AUTO) 6.4 X10'3 (1.8-7.7); NEUTROPHILS % (AUTO) 83.6 % (42-75); PLATELET COUNT 177 X10'3 (140-440); RED BLOOD COUNT 2.39 X10'6 (4.20-5.60); RED CELL DISTRIBUTION WIDTH 28.4 % (11.5-14.5); WHITE BLOOD COUNT 7.7 X10'3 (4.5-11.0)
[2018-10-16 03:03] LABS: ALANINE AMINOTRANSFERASE 108 U/L (12-78); ALBUMIN 1.4 G/DL (3.4-5.0); ALBUMIN/GLOBULIN RATIO 0.4 (1.1-1.5); ALKALINE PHOSPHATASE 253 IU/L (46-116); ANION GAP 6 (8-16); ASPARTATE AMINO TRANSFERASE 46 U/L (10-37); BILIRUBIN,TOTAL 0.5 MG/DL (0.1-1.0); BLOOD UREA NITROGEN 30 MG/DL (7-18); BUN/CREATININE RATIO 42.3 (6.6-38.0); CALCIUM 7.6 MG/DL (8.5-10.1); CHLORIDE 110 MMOL/L (99-107); CREATININE 0.71 MG/DL (0.40-0.90); GLUCOSE 115 MG/DL (70-104); INR 1.2 INR; MAGNESIUM 2.1 MG/DL (1.5-2.4); PHOSPHORUS 2.6 MG/DL (2.3-4.5); POTASSIUM 3.7 MMOL/L (3.5-5.1); SODIUM 146 MMOL/L (135-145); TOTAL CARBON DIOXIDE 29.7 MMOL/L (24-32); TOTAL PROTEIN 5.3 G/DL (6.4-8.2); eGFR 83 ML/MIN
[2018-10-16] MEDS: potassium Cl oral solution 20 MEQ/15 ML PO PRN (03:36)
[2018-10-16 03:41] LABS: ABG BASE EXCESS 6.3 mmol/L (-2.0-3.0); ABG HCO3 28.7 mmol/L (22.0-26.0); ABG OXYGEN SATURATION 97.7 % (95-98); ABG PCO2 (T) 33.3 mmHg (32.0-45.0); ABG PH (T) 7.554 (7.350-7.450); ALLEN'S TEST Positive; FCOHb 0.9 % (0.5-1.5); FMetHb 0.1 % (0.3-1.12); FO2Hb 96.7 % (94-100); MINUTE VOLUME 6 L/min; PATIENT TEMPERATURE 37.3; PEEP 5 cm H2O; RESPIRATORY RATE 16 b/min; RESPIRATORY RATE (OBSERVED) 16 b/min; TIDAL VOLUME 400 mL; TOTAL HEMOGLOBIN 8.9 G/dl (12.0-16.0)
[2018-10-16 04:33] LABS: LARGE PLATELETS MODERATE; PLATELET ESTIMATE NORMAL
[2018-10-16 04:34] LABS: ANISOCYTOSIS 3+
[2018-10-16 04:36] LABS: HYPOCHROMASIA 1+; TARGET CELLS 1+
--- NOTE | 2018-10-16 06:12 | NUR ---
RN Note -Intubation Dr. Kenney at bedside. Pt intubated due to high work of breathing. Plan for tracheostomy tomorrow or Thursday. Addendum: 10/17/18 at 0615 by Azucena Marquez RN WRONG TIME ENTERED. CORRECT TIME 1913
--- NOTE | 2018-10-16 06:41 | NUR ---
Problems reprioritized. Patient report given, questions answered & plan of care reviewed with Anitha EDMONDSON.
[2018-10-16] MEDS: famotidine/PF 10 mg/ml inj IV SCH ×2 (07:07→20:41)
[2018-10-16] MEDS: carVEDilol 3.125mg tablet PO SCH (07:07)
[2018-10-16] MEDS: NYSTATIN CREAM - 30GM TUBE TP SCH ×2 (07:08→20:42)
[2018-10-16] MEDS: FLUoxetine 20mg capsule PO SCH (07:08)
[2018-10-16] MEDS: multivitamins, therapeutics tablet PO SCH (07:08)
[2018-10-16] MEDS: cyanocobalamin 500mcg tablet PO SCH (07:08)
[2018-10-16] MEDS: folic acid 1mg tablet PO SCH (07:08)
[2018-10-16] MEDS: thiamine 100mg tablet PO SCH ×2 (07:08→20:41)
[2018-10-16] MEDS: apixaban 5mg tablet PO SCH ×2 (07:14→20:42)
[2018-10-16] MEDS: vitamin D (cholecalciferol) 1,000 unit tablet PO SCH (07:14)
[2018-10-16] MEDS: lactobacillus rhamnosus 10,000 MMU CELLS/CAPSULE PO SCH ×2 (07:14→20:41)
[2018-10-16] MEDS: K, MAG and/or Phos replacement - Verify level? MC SCH (07:15)
[2018-10-16] MEDS: sodium ferric gluc complex inj 125 MG in normal saline 100ml IV soln 100 ML IV SCH (10:38)
[2018-10-16] MEDS ORDERED: CADD PCA waste documentation MC PRN (11:15)
[2018-10-16] MEDS ORDERED: naloxone 0.4 mg/ml inj IV PRN (11:15)
--- NOTE | 2018-10-16 11:51 | NUR ---
[address] Kenney orders, lung sounds diminished in bases, coarse wheeze bilat, O2 at 3 lt via NC. Bipap set up in room in case of need. 1154 Pt working a little harder sat 93% continue to monitor, daughters at bedside.
[2018-10-16] MEDS: lactose-reduced food (Ensure High Protein) 237ml bottle PO SCH (12:30)
--- NOTE | 2018-10-16 18:15 | NUR ---
RN Note -Intubation Dr. Kenney at bedside. Pt intubated due to high work of breathing. Plan for tracheostomy tomorrow or Thursday.
[2018-10-16 18:16] LABS: ABG BASE EXCESS 6.2 mmol/L (-2.0-3.0); ABG HCO3 30.7 mmol/L (22.0-26.0); ABG PCO2 (T) 44.1 mmHg (32.0-45.0); ABG PO2 (T) 91.1 mmHg (83-108); ALLEN'S TEST Positive; FCOHb 0.4 % (0.5-1.5); FMetHb 0.2 % (0.3-1.12); FO2Hb 96.4 % (94-100); MINUTE VOLUME 18 L/min; RESPIRATORY RATE (OBSERVED) 33 b/min; TIDAL VOLUME 507 mL; TOTAL HEMOGLOBIN 10.4 G/dl (12.0-16.0)
[2018-10-16] MEDS ORDERED: midazolam 2 mg/2 ml injection ONE (18:40)
[2018-10-16] MEDS ORDERED: midazolam 100mg in NS 100ml 100 ML IV PRN (18:52)
[2018-10-16] MEDS ORDERED: FENTANYL-0.9 % NACL/PF 100 ML IV PRN (18:52)
[2018-10-16] MEDS ORDERED: MIDAZolam 5mg/ml 2ml vial IV ONE (18:55)
[2018-10-16 20:40] LABS: ABG HCO3 29.4 mmol/L (22.0-26.0); ABG OXYGEN SATURATION 97.1 % (95-98); ABG PCO2 (T) 37.5 mmHg (32.0-45.0); ABG PH (T) 7.512 (7.350-7.450); ABG PO2 (T) 90.5 mmHg (83-108); ALLEN'S TEST Positive; FCOHb 0.5 % (0.5-1.5); FMetHb 0.2 % (0.3-1.12); FO2Hb 96.4 % (94-100); MINUTE VOLUME 7 L/min; PEEP 5 cm H2O; RESPIRATORY RATE 16 b/min; RESPIRATORY RATE (OBSERVED) 16 b/min; TIDAL VOLUME 400 mL; TOTAL HEMOGLOBIN 9.6 G/dl (12.0-16.0)
[2018-10-16] MEDS: carvedilol 6.25mg tablet PO SCH (20:42)
[2018-10-16] MEDS: insulin glargine (Lantus) pen - multi-dose SQ SCH (21:00)
[2018-10-16 23:51] LABS: ALANINE AMINOTRANSFERASE 84 U/L (12-78); ALBUMIN 1.4 G/DL (3.4-5.0); ALBUMIN/GLOBULIN RATIO 0.4 (1.1-1.5); ALKALINE PHOSPHATASE 229 IU/L (46-116); ANION GAP 4 (8-16); ASPARTATE AMINO TRANSFERASE 36 U/L (10-37); BILIRUBIN,TOTAL 0.8 MG/DL (0.1-1.0); BLOOD UREA NITROGEN 28 MG/DL (7-18); BUN/CREATININE RATIO 43.8 (6.6-38.0); CALCIUM 7.6 MG/DL (8.5-10.1); CHLORIDE 109 MMOL/L (99-107); CREATININE 0.64 MG/DL (0.40-0.90); GLUCOSE 84 MG/DL (70-104); MAGNESIUM 1.8 MG/DL (1.5-2.4); PHOSPHORUS 3.1 MG/DL (2.3-4.5); POTASSIUM 3.3 MMOL/L (3.5-5.1); SODIUM 146 MMOL/L (135-145); TOTAL CARBON DIOXIDE 32.6 MMOL/L (24-32); TOTAL PROTEIN 5.3 G/DL (6.4-8.2); eGFR > 90 ML/MIN
[2018-10-17] VITALS (24 sets, daily range): BP systolic 91–121; BP diastolic 48–71
[2018-10-17] MEDS: meropenem inj 1 GM in normal saline 100ml IV soln 100 ML IV SCH ×3 (00:48→15:44)
[2018-10-17] MEDS: potassium Cl 40MEQ/250ML bag 250 ML IV PRN (01:43)
[2018-10-17] MEDS ORDERED: potassium Cl 40MEQ/NS 500ml 500 ML IV PRN ×2 (01:55)
[2018-10-17] MEDS: potassium Cl oral solution 20 MEQ/15 ML PO PRN ×4 (01:58→16:20)
[2018-10-17] MEDS: mineral oil/petrolatum ophthal oint EACHEYE SCH ×4 (01:58→20:04)
[2018-10-17] MEDS: furosemide 20 MG/2 ML vial IV SCH ×4 (02:00→20:04)
[2018-10-17] MEDS: magnesium 2GM in 50ml NS 50 ML IV PRN (02:14)
[2018-10-17] MEDS: ipratropium/albuterol 3ml nebule NEB SCH ×6 (02:30→22:27)
[2018-10-17] MEDS: dexmedetomidin/NS 400mcg/100ml 100 ML IV SCH ×2 (03:13→14:40)
[2018-10-17 04:21] LABS: ABG HCO3 29.9 mmol/L (22.0-26.0); ABG OXYGEN SATURATION 97.9 % (95-98); ABG PCO2 (T) 35.9 mmHg (32.0-45.0); ABG PH (T) 7.539 (7.350-7.450); ABG PO2 (T) 102.6 mmHg (83-108); ALLEN'S TEST Positive; FCOHb 0.4 % (0.5-1.5); FMetHb 0.2 % (0.3-1.12); FO2Hb 97.3 % (94-100); MINUTE VOLUME 7 L/min; PATIENT TEMPERATURE 37.1; PEEP 5 cm H2O; RESPIRATORY RATE 16 b/min; RESPIRATORY RATE (OBSERVED) 16 b/min; TIDAL VOLUME 400 mL; TOTAL HEMOGLOBIN 9.2 G/dl (12.0-16.0)
--- NOTE | 2018-10-17 06:00 | NUR ---
Patient in room CICU 2010. I have received report from Cedrick Pemberton and had the opportunity to ask questions and assume patient care.
[2018-10-17 06:26] LABS: ALBUMIN 1.4 G/DL (3.4-5.0); ANION GAP 7 (8-16); BLOOD UREA NITROGEN 27 MG/DL (7-18); BUN/CREATININE RATIO 45.8 (6.6-38.0); CALCIUM 7.7 MG/DL (8.5-10.1); CHLORIDE 109 MMOL/L (99-107); CREATININE 0.59 MG/DL (0.40-0.90); GLUCOSE 111 MG/DL (70-104); MAGNESIUM 2.6 MG/DL (1.5-2.4); POTASSIUM 3.6 MMOL/L (3.5-5.1); SODIUM 147 MMOL/L (135-145); TOTAL CARBON DIOXIDE 30.9 MMOL/L (24-32); eGFR > 90 ML/MIN
[2018-10-17 06:51] LABS: BASOPHILS % (AUTO) 0.4 % (0-1); EOSINOPHILS # (AUTO) 0.1 X10'3 (0-0.9); EOSINOPHILS % (AUTO) 1.7 % (0-6); HEMATOCRIT 26.1 % (35.0-45.0); HEMOGLOBIN 8.1 g/dl (12.0-16.0); LYMPHOCYTES # (AUTO) 0.7 X10'3 (1.1-4.8); LYMPHOCYTES % (AUTO) 8.2 % (21-51); MEAN CORPUSCULAR HEMOGLOBIN 31.9 PG (27.0-31.0); MEAN CORPUSCULAR HGB CONC 30.9 % (33.0-36.5); MEAN CORPUSCULAR VOLUME 103.1 FL (78-98); MEAN PLATELET VOLUME 10.1 FL (7.4-10.4); MONOCYTES # (AUTO) 0.4 X10'3 (0-0.9); MONOCYTES % (AUTO) 4.9 % (2-12); NEUTROPHILS # (AUTO) 6.7 X10'3 (1.8-7.7); NEUTROPHILS % (AUTO) 84.8 % (42-75); PLATELET COUNT 197 X10'3 (140-440); RED BLOOD COUNT 2.53 X10'6 (4.20-5.60); WHITE BLOOD COUNT 7.9 X10'3 (4.5-11.0)
[2018-10-17 07:27] LABS: ANISOCYTOSIS 3+; HYPOCHROMASIA 1+; PLATELET ESTIMATE NORMAL
[2018-10-17 07:28] LABS: POIKILOCYTOSIS 1+; POLYCHROMASIA 2+; TARGET CELLS 1+
--- NOTE | 2018-10-17 07:30 | NUR ---
Call from radiology, ET tube in cm too far. will consult with RT
[2018-10-17] MEDS: vitamin D (cholecalciferol) 1,000 unit tablet PO SCH (07:49)
[2018-10-17] MEDS: folic acid 1mg tablet PO SCH (07:49)
[2018-10-17] MEDS: cyanocobalamin 500mcg tablet PO SCH (07:49)
[2018-10-17] MEDS: lactobacillus rhamnosus 10,000 MMU CELLS/CAPSULE PO SCH ×2 (07:49→20:04)
[2018-10-17] MEDS: famotidine/PF 10 mg/ml inj IV SCH ×2 (07:49→20:04)
[2018-10-17] MEDS: FLUoxetine 20mg capsule PO SCH (07:50)
[2018-10-17] MEDS: thiamine 100mg tablet PO SCH ×2 (07:50→20:04)
[2018-10-17] MEDS: NYSTATIN CREAM - 30GM TUBE TP SCH ×2 (07:50→20:05)
[2018-10-17] MEDS: multivitamins, therapeutics tablet PO SCH (07:50)
[2018-10-17] MEDS: apixaban 5mg tablet PO SCH ×2 (07:50→20:05)
[2018-10-17] MEDS: K, MAG and/or Phos replacement - Verify level? MC SCH (07:51)
--- NOTE | 2018-10-17 07:56 | NUR ---
RT called back, read this am's cxray. ET tube is 4.5 cm above dacia could advance 1 cm but ok in current position.
[2018-10-17] MEDS: carvedilol 6.25mg tablet PO SCH (08:00)
[2018-10-17] MEDS ORDERED: etomidate 2mg/ml inj. ONE (09:00)
[2018-10-17] MEDS ORDERED: LIDOcaine 2% 5ml jelly ONE (09:00)
[2018-10-17] MEDS ORDERED: LIDOcaine 2% (20 mg/ml) 5ml cardiac syringe ONE (09:00)
[2018-10-17] MEDS: sodium ferric gluc complex inj 125 MG in normal saline 100ml IV soln 100 ML IV SCH (10:43)
[2018-10-17] MEDS: lactose-reduced food (Ensure High Protein) 237ml bottle PO SCH (11:24)
[2018-10-17] MEDS ORDERED: carVEDilol 3.125mg tablet PO ONE (12:00)
[2018-10-17] MEDS: normal saline 1000ml 1,000 ML IV SCH (13:57)
[2018-10-17] MEDS ORDERED: mineral oil/petrolatum ophthal oint EACHEYE SCH (20:00)
[2018-10-17] MEDS: carVEDilol 3.125mg tablet PO SCH (20:04)
[2018-10-17] MEDS: acetaminophen 325mg tablet PO PRN (20:04)
[2018-10-17] MEDS: insulin glargine (Lantus) pen - multi-dose SQ SCH (20:05)
[2018-10-17 22:39] LABS: MAGNESIUM 2.1 MG/DL (1.5-2.4); POTASSIUM 3.4 MMOL/L (3.5-5.1)
[2018-10-18] VITALS (24 sets, daily range): BP systolic 107–148; BP diastolic 59–92
[2018-10-18] MEDS: meropenem inj 1 GM in normal saline 100ml IV soln 100 ML IV SCH ×3 (00:04→15:26)
[2018-10-18] MEDS: potassium Cl oral solution 20 MEQ/15 ML PO PRN ×4 (00:04→20:25)
[2018-10-18] MEDS: ipratropium/albuterol 3ml nebule NEB SCH ×6 (02:22→23:17)
[2018-10-18] MEDS: mineral oil/petrolatum ophthal oint EACHEYE SCH ×4 (02:50→20:00)
[2018-10-18] MEDS: furosemide 20 MG/2 ML vial IV SCH ×4 (02:51→20:25)
[2018-10-18 04:05] LABS: ABG HCO3 27.7 mmol/L (22.0-26.0); ABG OXYGEN SATURATION 97.9 % (95-98); ABG PCO2 (T) 34.3 mmHg (32.0-45.0); ABG PH (T) 7.526 (7.350-7.450); ABG PO2 (T) 101.9 mmHg (83-108); ALLEN'S TEST Positive; FCOHb 0.6 % (0.5-1.5); FMetHb 0.1 % (0.3-1.12); FO2Hb 97.2 % (94-100); MINUTE VOLUME 8 L/min; PATIENT TEMPERATURE 37.5; PEEP 5 cm H2O; RESPIRATORY RATE 16 b/min; RESPIRATORY RATE (OBSERVED) 17 b/min; TIDAL VOLUME 400 mL; TOTAL HEMOGLOBIN 9.5 G/dl (12.0-16.0)
[2018-10-18 06:06] LABS: BASOPHILS % (AUTO) 0.1 % (0-1); EOSINOPHILS # (AUTO) 0.2 X10'3 (0-0.9); HEMATOCRIT 27.4 % (35.0-45.0); HEMOGLOBIN 8.7 g/dl (12.0-16.0); LYMPHOCYTES # (AUTO) 0.6 X10'3 (1.1-4.8); LYMPHOCYTES % (AUTO) 8.9 % (21-51); MEAN CORPUSCULAR HEMOGLOBIN 33.1 PG (27.0-31.0); MEAN CORPUSCULAR HGB CONC 31.6 % (33.0-36.5); MEAN CORPUSCULAR VOLUME 104.5 FL (78-98); MEAN PLATELET VOLUME 10.1 FL (7.4-10.4); MONOCYTES # (AUTO) 0.4 X10'3 (0-0.9); MONOCYTES % (AUTO) 5.2 % (2-12); NEUTROPHILS % (AUTO) 82.8 % (42-75); PLATELET COUNT 184 X10'3 (140-440); RED BLOOD COUNT 2.62 X10'6 (4.20-5.60); RED CELL DISTRIBUTION WIDTH 27.6 % (11.5-14.5); WHITE BLOOD COUNT 7.3 X10'3 (4.5-11.0)
[2018-10-18 06:11] LABS: ALBUMIN 1.5 G/DL (3.4-5.0); ANION GAP 9 (8-16); BLOOD UREA NITROGEN 26 MG/DL (7-18); BUN/CREATININE RATIO 41.9 (6.6-38.0); CALCIUM 7.9 MG/DL (8.5-10.1); CHLORIDE 108 MMOL/L (99-107); CREATININE 0.62 MG/DL (0.40-0.90); GLUCOSE 130 MG/DL (70-104); MAGNESIUM 2.1 MG/DL (1.5-2.4); POTASSIUM 3.8 MMOL/L (3.5-5.1); SODIUM 147 MMOL/L (135-145); eGFR > 90 ML/MIN
--- NOTE | 2018-10-18 06:30 | NUR ---
Patient in room CICU 2010. I have received report from DELVIS Pemberton and had the opportunity to ask questions and assume patient care.
[2018-10-18 07:39] LABS: ANISOCYTOSIS 3+; HYPOCHROMASIA 1+; PLATELET ESTIMATE NORMAL; POLYCHROMASIA 1+
[2018-10-18 07:40] LABS: TARGET CELLS 1+
[2018-10-18] MEDS: apixaban 5mg tablet PO SCH (08:00)
[2018-10-18] MEDS: K, MAG and/or Phos replacement - Verify level? MC SCH (08:00)
[2018-10-18] MEDS: multivitamins, therapeutics tablet PO SCH (08:01)
[2018-10-18] MEDS: thiamine 100mg tablet PO SCH ×2 (08:01→20:26)
[2018-10-18] MEDS: carVEDilol 3.125mg tablet PO SCH ×2 (08:01→20:25)
[2018-10-18] MEDS: lactobacillus rhamnosus 10,000 MMU CELLS/CAPSULE PO SCH ×2 (08:01→20:25)
[2018-10-18] MEDS: cyanocobalamin 500mcg tablet PO SCH (08:01)
[2018-10-18] MEDS: folic acid 1mg tablet PO SCH (08:02)
[2018-10-18] MEDS: vitamin D (cholecalciferol) 1,000 unit tablet PO SCH (08:02)
[2018-10-18] MEDS: FLUoxetine 20mg capsule PO SCH (08:02)
[2018-10-18] MEDS: famotidine/PF 10 mg/ml inj IV SCH ×2 (08:02→20:25)
[2018-10-18] MEDS: sodium ferric gluc complex inj 125 MG in normal saline 100ml IV soln 100 ML IV SCH (10:29)
[2018-10-18] MEDS: NYSTATIN CREAM - 30GM TUBE TP SCH ×2 (10:29→20:26)
[2018-10-18] MEDS: lactose-reduced food (Ensure High Protein) 237ml bottle PO SCH (12:30)
--- NOTE | 2018-10-18 13:58 | NUR ---
Reassessment: Per MD note trach will be done today and PEG tomorrow. Patient has been having high stool output, documented 700 ml out on 10/16. High stool output discussed at rounds today. Per MD change tube feeding formula to provide more bulk in view of liquid diarrhea up to 400 ml per nursing shift. Recommend Glucerna 1.2 as it contains soluble fiber for gut regularity. Currently she is NPO pending the trach and PEG. RN will place consult after PEG placement. Recommend 1. Per MD change tube feeding formula to provide more bulk in view of liquid diarrhea up to 400 ml per nursing shift. Recommend Glucerna 1.2 as it contains soluble fiber for gut regularity. Recommend Glucerna 1.2 once PEG placed at 65 ml/hr to provide total volume of 1560 ml, 1872 cals, 94 gm protein, and 1256 ml free water. 2. Continue water flush 200 q 4 when PEG placed 3. Prealbumin q / 4. daily wt Addendum: 10/18/18 at [address] Amended: Links added.
[2018-10-18] MEDS: dexmedetomidin/NS 400mcg/100ml 100 ML IV SCH (15:18)
[2018-10-18] MEDS ORDERED: heparin 10,000 units/1 ML INJ IV PRN (15:35)
[2018-10-18] MEDS ORDERED: heparin 10,000 units/1 ML INJ IV ONE (15:35)
--- NOTE | 2018-10-18 16:30 | NUR ---
Dressing to sacrum changed, rectal tube flushed, skin care provided. Tube feed restarted. Pt to be NPO at midnight. Heparin gtt to begin pending PTT results.
[2018-10-18 16:37] LABS: BASOPHILS % (AUTO) 0.4 % (0-1); EOSINOPHILS # (AUTO) 0.2 X10'3 (0-0.9); EOSINOPHILS % (AUTO) 2.6 % (0-6); HEMATOCRIT 28.7 % (35.0-45.0); LYMPHOCYTES # (AUTO) 0.8 X10'3 (1.1-4.8); LYMPHOCYTES % (AUTO) 10.3 % (21-51); MEAN CORPUSCULAR HEMOGLOBIN 32.7 PG (27.0-31.0); MEAN CORPUSCULAR HGB CONC 31.5 % (33.0-36.5); MEAN PLATELET VOLUME 9.7 FL (7.4-10.4); MONOCYTES # (AUTO) 0.4 X10'3 (0-0.9); MONOCYTES % (AUTO) 5.7 % (2-12); PLATELET COUNT 208 X10'3 (140-440); RED BLOOD COUNT 2.76 X10'6 (4.20-5.60); RED CELL DISTRIBUTION WIDTH 26.4 % (11.5-14.5); WHITE BLOOD COUNT 7.4 X10'3 (4.5-11.0)
[2018-10-18 16:56] LABS: INR 1.1 INR; PARTIAL THROMBOPLASTIN TIME 30 SECONDS (22-32); PROTHROMBIN TIME 11.5 SECONDS (9.0-12.0)
[2018-10-18] MEDS: heparin 25,000 UNIT/250ml bag 250 ML IV SCH (17:24)
[2018-10-18] MEDS ORDERED: DIPHENOXYLATE PO PRN (18:20)
[2018-10-18] MEDS ORDERED: ATROPINE PO PRN (18:20)
--- NOTE | 2018-10-18 18:21 | NUR ---
Problems reprioritized. Patient report given, questions answered & plan of care reviewed with Nilay RN.
[2018-10-18] MEDS: insulin glargine (Lantus) pen - multi-dose SQ SCH (20:26)
[2018-10-18] MEDS ORDERED: diatr meglu/diatrizoate 30ml oral sol.-(3 dose) bottle NG ONE ×2 (22:00)
[2018-10-19] VITALS (24 sets, daily range): BP systolic 92–137; BP diastolic 51–98
[2018-10-19] MEDS: furosemide 20 MG/2 ML vial IV SCH ×4 (01:48→20:16)
[2018-10-19] MEDS: mineral oil/petrolatum ophthal oint EACHEYE SCH ×4 (02:00→20:00)
[2018-10-19] MEDS ORDERED: diphenoxylate/atropine tablet (Lomotil) PO PRN ×2 (02:00→07:00)
[2018-10-19] MEDS: potassium Cl oral solution 20 MEQ/15 ML PO PRN ×2 (02:55→23:00)
[2018-10-19] MEDS ORDERED: diphenoxylate/atropine tablet (Lomotil) PO ONE (03:05)
[2018-10-19] MEDS: ipratropium/albuterol 3ml nebule NEB SCH ×6 (03:07→22:24)
[2018-10-19 04:21] LABS: ABG BASE EXCESS 5.8 mmol/L (-2.0-3.0); ABG HCO3 28.8 mmol/L (22.0-26.0); ABG OXYGEN SATURATION 97.2 % (95-98); ABG PCO2 (T) 35.7 mmHg (32.0-45.0); ABG PH (T) 7.524 (7.350-7.450); ABG PO2 (T) 93.9 mmHg (83-108); ALLEN'S TEST Positive; FCOHb 0.3 % (0.5-1.5); FMetHb 0.2 % (0.3-1.12); FO2Hb 96.7 % (94-100); MINUTE VOLUME 7 L/min; PATIENT TEMPERATURE 36.9; PEEP 5 cm H2O; RESPIRATORY RATE 16 b/min; RESPIRATORY RATE (OBSERVED) 17 b/min; TIDAL VOLUME 400 mL; TOTAL HEMOGLOBIN 10.2 G/dl (12.0-16.0)
[2018-10-19 05:19] LABS: BASOPHILS % (AUTO) 0.1 % (0-1); EOSINOPHILS # (AUTO) 0.2 X10'3 (0-0.9); EOSINOPHILS % (AUTO) 2.1 % (0-6); HEMOGLOBIN 9.2 g/dl (12.0-16.0); LYMPHOCYTES % (AUTO) 12.8 % (21-51); MEAN CORPUSCULAR HEMOGLOBIN 32.8 PG (27.0-31.0); MEAN CORPUSCULAR HGB CONC 31.7 % (33.0-36.5); MEAN CORPUSCULAR VOLUME 103.3 FL (78-98); MEAN PLATELET VOLUME 9.9 FL (7.4-10.4); MONOCYTES # (AUTO) 0.5 X10'3 (0-0.9); MONOCYTES % (AUTO) 5.9 % (2-12); NEUTROPHILS # (AUTO) 6.1 X10'3 (1.8-7.7); NEUTROPHILS % (AUTO) 79.1 % (42-75); PLATELET COUNT 185 X10'3 (140-440); RED BLOOD COUNT 2.81 X10'6 (4.20-5.60); RED CELL DISTRIBUTION WIDTH 26.6 % (11.5-14.5); WHITE BLOOD COUNT 7.7 X10'3 (4.5-11.0)
[2018-10-19 05:31] LABS: INR 1.1 INR; PARTIAL THROMBOPLASTIN TIME 27 SECONDS (22-32); PROTHROMBIN TIME 11.2 SECONDS (9.0-12.0)
[2018-10-19 05:39] LABS: ALBUMIN 1.6 G/DL (3.4-5.0); ANION GAP 8 (8-16); BLOOD UREA NITROGEN 22 MG/DL (7-18); BUN/CREATININE RATIO 33.3 (6.6-38.0); CALCIUM 8.3 MG/DL (8.5-10.1); CHLORIDE 111 MMOL/L (99-107); CREATININE 0.66 MG/DL (0.40-0.90); GLUCOSE 126 MG/DL (70-104); POTASSIUM 4.7 MMOL/L (3.5-5.1); SODIUM 147 MMOL/L (135-145); TOTAL CARBON DIOXIDE 28.5 MMOL/L (24-32); eGFR 90 ML/MIN
--- NOTE | 2018-10-19 06:23 | NUR ---
Patient in room CICU 2010. I have received report from DELVIS Pemberton and had the opportunity to ask questions and assume patient care.
[2018-10-19 06:47] LABS: ANISOCYTOSIS 3+; LARGE PLATELETS FEW; PLATELET ESTIMATE NORMAL; POLYCHROMASIA 1+
[2018-10-19 06:48] LABS: MICROCYTOSIS 1+; TARGET CELLS FEW
[2018-10-19] MEDS: famotidine/PF 10 mg/ml inj IV SCH ×2 (08:17→20:16)
[2018-10-19] MEDS: meropenem inj 1 GM in normal saline 100ml IV soln 100 ML IV SCH ×5 (08:17→23:57)
[2018-10-19] MEDS: FLUoxetine 20mg capsule PO SCH (08:18)
[2018-10-19] MEDS: folic acid 1mg tablet PO SCH (08:18)
[2018-10-19] MEDS: multivitamins, therapeutics tablet PO SCH (08:18)
[2018-10-19] MEDS: carVEDilol 3.125mg tablet PO SCH ×2 (08:18→20:16)
[2018-10-19] MEDS: thiamine 100mg tablet PO SCH ×2 (08:18→20:16)
[2018-10-19] MEDS: vitamin D (cholecalciferol) 1,000 unit tablet PO SCH (08:18)
[2018-10-19] MEDS: cyanocobalamin 500mcg tablet PO SCH (08:19)
[2018-10-19] MEDS: NYSTATIN CREAM - 30GM TUBE TP SCH ×2 (08:19→20:17)
[2018-10-19] MEDS: lactobacillus rhamnosus 10,000 MMU CELLS/CAPSULE PO SCH ×2 (08:19→20:16)
[2018-10-19] MEDS: K, MAG and/or Phos replacement - Verify level? MC SCH (08:20)
[2018-10-19] MEDS: sodium ferric gluc complex inj 125 MG in normal saline 100ml IV soln 100 ML IV SCH (09:56)
[2018-10-19] MEDS: dexmedetomidin/NS 400mcg/100ml 100 ML IV SCH ×2 (10:03→20:16)
--- NOTE | 2018-10-19 10:26 | NUR ---
IR contacted by Dereje EDMONDSON. Discussed POC and RN aware procedure deferred until tomorrow per Dr Rucker secondary to blood thinners. RN stated he would update molder shoulder pad. Awaiting further orders.
[2018-10-19] MEDS: lactose-reduced food (Ensure High Protein) 237ml bottle PO SCH (12:30)
[2018-10-19] MEDS ORDERED: MIDAZolam 5mg/ml 2ml vial IV ONE (16:05)
[2018-10-19] MEDS ORDERED: rocuronium br inj. 100 MG in normal saline 100ml IV soln 90 ML IV ONE (16:05)
[2018-10-19] MEDS ORDERED: fentaNYL/PF 50MCG/1 ML 2ML syringe IV ONE (16:05)
[2018-10-19] MEDS ORDERED: rocuronium 10mg/ml inj IV ONE ×2 (16:10)
--- NOTE | 2018-10-19 16:30 | NUR ---
Dr. Kenney placed Tracheostomy, [facility] #6. Pt tolerated procedure well. 2.5 mg Versed IVP administered, 100 mcg Fentanyl IVP, 100 mg Rocuronium IVP.
[2018-10-19] MEDS: heparin 25,000 UNIT/250ml bag 250 ML IV SCH (16:35)
--- NOTE | 2018-10-19 17:45 | NUR ---
Placed 14 Fr NG tube to left nares. Auscultated air bolus over stomach to confirm placement.
[2018-10-19] MEDS: normal saline 1000ml 1,000 ML IV SCH (20:17)
[2018-10-19] MEDS: insulin glargine (Lantus) pen - multi-dose SQ SCH (20:17)
[2018-10-19] MEDS ORDERED: diatr meglu/diatrizoate 30ml oral sol.-(3 dose) bottle PO ONE (22:00)
[2018-10-19 23:26] LABS: MAGNESIUM 1.9 MG/DL (1.5-2.4); POTASSIUM 3.2 MMOL/L (3.5-5.1)
[2018-10-19] MEDS: magnesium 2GM in 50ml NS 50 ML IV PRN (23:57)
[2018-10-20] VITALS (32 sets, daily range): BP systolic 92–141; BP diastolic 50–87
--- NOTE | 2018-10-20 | NUR ---
RN Note -Pt moving right hand Pt started twitching fingers on right hand and squeezing hand on command, though weaker than left hand. No movement in right leg.
[2018-10-20] MEDS: mineral oil/petrolatum ophthal oint EACHEYE SCH ×4 (02:00→20:00)
[2018-10-20] MEDS: ipratropium/albuterol 3ml nebule NEB SCH ×6 (02:23→22:34)
[2018-10-20] MEDS: furosemide 20 MG/2 ML vial IV SCH ×3 (03:08→20:08)
[2018-10-20 03:30] LABS: ABG BASE EXCESS 5.9 mmol/L (-2.0-3.0); ABG HCO3 29.1 mmol/L (22.0-26.0); ABG OXYGEN SATURATION 97.9 % (95-98); ABG PCO2 (T) 36.4 mmHg (32.0-45.0); ABG PO2 (T) 109.6 mmHg (83-108); ALLEN'S TEST Positive; FCOHb 0.3 % (0.5-1.5); FMetHb 0.1 % (0.3-1.12); FO2Hb 97.5 % (94-100); MINUTE VOLUME 7 L/min; PATIENT TEMPERATURE 36.9; PEEP 5 cm H2O; RESPIRATORY RATE 16 b/min; RESPIRATORY RATE (OBSERVED) 16 b/min; TIDAL VOLUME 400 mL; TOTAL HEMOGLOBIN 10.3 G/dl (12.0-16.0)
[2018-10-20 04:47] LABS: BASOPHILS % (AUTO) 0.3 % (0-1); EOSINOPHILS # (AUTO) 0.2 X10'3 (0-0.9); EOSINOPHILS % (AUTO) 2.7 % (0-6); HEMATOCRIT 29.9 % (35.0-45.0); HEMOGLOBIN 9.6 g/dl (12.0-16.0); LYMPHOCYTES # (AUTO) 0.6 X10'3 (1.1-4.8); LYMPHOCYTES % (AUTO) 8.9 % (21-51); MEAN CORPUSCULAR HEMOGLOBIN 33.5 PG (27.0-31.0); MEAN CORPUSCULAR HGB CONC 32.3 % (33.0-36.5); MEAN PLATELET VOLUME 9.8 FL (7.4-10.4); MONOCYTES # (AUTO) 0.3 X10'3 (0-0.9); MONOCYTES % (AUTO) 4.1 % (2-12); NEUTROPHILS # (AUTO) 5.6 X10'3 (1.8-7.7); PLATELET COUNT 169 X10'3 (140-440); RED BLOOD COUNT 2.88 X10'6 (4.20-5.60); RED CELL DISTRIBUTION WIDTH 26.3 % (11.5-14.5); WHITE BLOOD COUNT 6.7 X10'3 (4.5-11.0)
[2018-10-20 04:59] LABS: ALBUMIN 1.6 G/DL (3.4-5.0); ANION GAP 8 (8-16); BLOOD UREA NITROGEN 21 MG/DL (7-18); BUN/CREATININE RATIO 32.3 (6.6-38.0); CALCIUM 8.2 MG/DL (8.5-10.1); CHLORIDE 110 MMOL/L (99-107); CREATININE 0.65 MG/DL (0.40-0.90); GLUCOSE 117 MG/DL (70-104); POTASSIUM 3.8 MMOL/L (3.5-5.1); SODIUM 147 MMOL/L (135-145); TOTAL CARBON DIOXIDE 29.5 MMOL/L (24-32); eGFR > 90 ML/MIN
--- NOTE | 2018-10-20 06:30 | NUR ---
Patient in room CICU 2010. I have received report from DELVIS Pemberton and had the opportunity to ask questions and assume patient care.
[2018-10-20] MEDS: lactobacillus rhamnosus 10,000 MMU CELLS/CAPSULE PO SCH ×2 (08:00→20:08)
[2018-10-20] MEDS: thiamine 100mg tablet PO SCH ×2 (08:00→20:08)
[2018-10-20] MEDS: multivitamins, therapeutics tablet PO SCH (08:00)
[2018-10-20] MEDS: folic acid 1mg tablet PO SCH (08:00)
[2018-10-20] MEDS: cyanocobalamin 500mcg tablet PO SCH (08:00)
[2018-10-20] MEDS: NYSTATIN CREAM - 30GM TUBE TP SCH ×2 (08:00→20:09)
[2018-10-20] MEDS: vitamin D (cholecalciferol) 1,000 unit tablet PO SCH (08:00)
[2018-10-20] MEDS: K, MAG and/or Phos replacement - Verify level? MC SCH (08:00)
[2018-10-20] MEDS: FLUoxetine 20mg capsule PO SCH (08:00)
[2018-10-20] MEDS: famotidine/PF 10 mg/ml inj IV SCH ×2 (08:30→20:08)
[2018-10-20] MEDS: meropenem inj 1 GM in normal saline 100ml IV soln 100 ML IV SCH (08:31)
[2018-10-20] MEDS: carVEDilol 3.125mg tablet PO SCH ×2 (08:52→20:08)
[2018-10-20] MEDS: potassium Cl oral solution 20 MEQ/15 ML PO PRN (08:53)
--- NOTE | 2018-10-20 10:55 | NUR ---
Critical care team at bedside discussing plan of care. Informed Dr patel that the pt's leaving right now for procedure - gtube placement. K has been low, replacing, he states 20mg BID enough for patient. He states do not start TF until tomorrow and start D 10 if blood sugars drop.
[2018-10-20] MEDS ORDERED: iohexol 300 MG/1 ML 50ml polymer ONE (11:17)
[2018-10-20] MEDS ORDERED: LIDOcaine 1%/PF 5ML 10 MG/ML VIAL ONE ×2 (11:17→11:48)
[2018-10-20] MEDS ORDERED: fentaNYL/PF 50MCG/1 ML 2ML syringe IV PRN (11:20)
[2018-10-20] MEDS ORDERED: glucagon, human recombinant 1mg kit IV ONE (11:20)
[2018-10-20] MEDS ORDERED: glucagon, human recombinant 1mg kit ONE (11:21)
[2018-10-20] MEDS ORDERED: fentaNYL/PF 50MCG/1 ML 2ML syringe ONE (11:36)
[2018-10-20] MEDS: dexmedetomidin/NS 400mcg/100ml 100 ML IV SCH (11:40)
--- NOTE | 2018-10-20 12:20 | NUR ---
Pt received back from angio, Cristobal nunn, pt appears comfortable, report received that patient received 25 of fentanyl only and otherwise tolerated well.
[2018-10-20] MEDS: lactose-reduced food (Ensure High Protein) 237ml bottle PO SCH (12:30)
[2018-10-20] MEDS ORDERED: zinc oxide ointment 30gm tube TP PRN (12:45)
--- NOTE | 2018-10-20 15:24 | NUR ---
Tube feeding consult. Patient now has trach and PEG was placed today. Patient was having high stool output, documented 700 ml out on 10/16. High stool output discussed at rounds today. Per MD change tube feeding formula to provide more bulk in view of liquid diarrhea up to 400 ml per nursing shift. Recommend Jevity 1.2 as it contains soluble fiber for gut regularity. Recommend 1. When OK to use PEG recommend Jevity 1.2 65 ml/hr to61 provide total volume of 1560 ml, 1872 cals, 87 gm protein, and 1259 ml free water. 2. Continue water flush 200 q 4 when PEG placed 3. Prealbumin q / 4. daily wt Addendum: 10/20/18 at [address] Amended: Links added.
[2018-10-20] MEDS: heparin 25,000 UNIT/250ml bag 250 ML IV SCH (17:35)
--- NOTE | 2018-10-20 18:35 | NUR ---
Patient in room CICU 2010. I have received report from Karina EDMONDSON, and had the opportunity to ask questions and assume patient care.
--- NOTE | 2018-10-20 18:39 | NUR ---
Problems reprioritized. Patient report given, questions answered & plan of care reviewed with DELVIS Gallardo.
--- NOTE | 2018-10-20 20:00 | NUR ---
PT resting with no s/s of distress noted at this time. PT has a trach in place and mechanically vented, tolerating settings well. O2 sat > 97%. PT had a PEG tube place on previous shift, TF on hold. Bed is locked and low. Will continue to monitor.
[2018-10-20] MEDS: insulin glargine (Lantus) pen - multi-dose SQ SCH (20:16)
[2018-10-21] VITALS (17 sets, daily range): BP systolic 107–135; BP diastolic 50–79
[2018-10-21] MEDS ORDERED: Dextrose 10%-water IV solution 1,000 ML IV SCH (00:10)
--- NOTE | 2018-10-21 00:10 | NUR ---
Blood sugar is 81, DRIER OPERATOR HELPER Andrew notified. Order received to start D10 at 30ml/hr until TF is able to resume.
[2018-10-21] MEDS: mineral oil/petrolatum ophthal oint EACHEYE SCH ×3 (02:00→14:00)
[2018-10-21] MEDS: ipratropium/albuterol 3ml nebule NEB SCH ×4 (02:29→15:00)
[2018-10-21 03:01] LABS: BASOPHILS % (AUTO) 0.5 % (0-1); EOSINOPHILS # (AUTO) 0.3 X10'3 (0-0.9); EOSINOPHILS % (AUTO) 4.1 % (0-6); HEMATOCRIT 29.5 % (35.0-45.0); HEMOGLOBIN 9.4 g/dl (12.0-16.0); LYMPHOCYTES # (AUTO) 0.5 X10'3 (1.1-4.8); LYMPHOCYTES % (AUTO) 7.7 % (21-51); MEAN CORPUSCULAR HEMOGLOBIN 32.7 PG (27.0-31.0); MEAN CORPUSCULAR HGB CONC 31.7 % (33.0-36.5); MEAN CORPUSCULAR VOLUME 103.3 FL (78-98); MEAN PLATELET VOLUME 9.4 FL (7.4-10.4); MONOCYTES # (AUTO) 0.3 X10'3 (0-0.9); MONOCYTES % (AUTO) 4.8 % (2-12); NEUTROPHILS # (AUTO) 5.5 X10'3 (1.8-7.7); NEUTROPHILS % (AUTO) 82.9 % (42-75); PLATELET COUNT 184 X10'3 (140-440); RED BLOOD COUNT 2.86 X10'6 (4.20-5.60); RED CELL DISTRIBUTION WIDTH 25.8 % (11.5-14.5); WHITE BLOOD COUNT 6.7 X10'3 (4.5-11.0)
[2018-10-21 03:22] LABS: ALBUMIN 1.6 G/DL (3.4-5.0); ANION GAP 10 (8-16); BLOOD UREA NITROGEN 19 MG/DL (7-18); BUN/CREATININE RATIO 31.7 (6.6-38.0); CHLORIDE 111 MMOL/L (99-107); GLUCOSE 98 MG/DL (70-104); MAGNESIUM 2.2 MG/DL (1.5-2.4); POTASSIUM 3.4 MMOL/L (3.5-5.1); PREALBUMIN 17.5 MG/DL (19-36); SODIUM 149 MMOL/L (135-145); TOTAL CARBON DIOXIDE 27.9 MMOL/L (24-32); eGFR > 90 ML/MIN
[2018-10-21 03:41] LABS: ABG BASE EXCESS 5.5 mmol/L (-2.0-3.0); ABG HCO3 28.6 mmol/L (22.0-26.0); ABG OXYGEN SATURATION 96.1 % (95-98); ABG PCO2 (T) 36.3 mmHg (32.0-45.0); ABG PH (T) 7.515 (7.350-7.450); ABG PO2 (T) 81.2 mmHg (83-108); ALLEN'S TEST Positive; FCOHb 0.1 % (0.5-1.5); MINUTE VOLUME 6 L/min; PEEP 5 cm H2O; RESPIRATORY RATE 16 b/min; RESPIRATORY RATE (OBSERVED) 16 b/min; TIDAL VOLUME 400 mL; TOTAL HEMOGLOBIN 10.5 G/dl (12.0-16.0)
[2018-10-21] MEDS: potassium Cl oral solution 20 MEQ/15 ML PO PRN ×2 (03:43→08:59)
[2018-10-21 03:46] LABS: ANISOCYTOSIS 3+; PLATELET ESTIMATE NORMAL
[2018-10-21 03:47] LABS: HYPOCHROMASIA 1+; TARGET CELLS 1+
--- NOTE | 2018-10-21 06:30 | NUR ---
Patient in room CICU 2010. I have received report from DELVIS Gallardo and had the opportunity to ask questions and assume patient care.
--- NOTE | 2018-10-21 06:33 | NUR ---
Problems reprioritized. Patient report given, questions answered & plan of care reviewed with Karina EDMONDSON.
[2018-10-21] MEDS: thiamine 100mg tablet PO SCH (08:00)
[2018-10-21] MEDS: K, MAG and/or Phos replacement - Verify level? MC SCH (08:00)
[2018-10-21] MEDS: multivitamins, therapeutics tablet PO SCH (08:00)
[2018-10-21] MEDS: folic acid 1mg tablet PO SCH (08:00)
[2018-10-21] MEDS: NYSTATIN CREAM - 30GM TUBE TP SCH (08:00)
[2018-10-21] MEDS: vitamin D (cholecalciferol) 1,000 unit tablet PO SCH (08:00)
[2018-10-21] MEDS: cyanocobalamin 500mcg tablet PO SCH (08:00)
[2018-10-21] MEDS: lactobacillus rhamnosus 10,000 MMU CELLS/CAPSULE PO SCH (08:58)
[2018-10-21] MEDS: famotidine/PF 10 mg/ml inj IV SCH (08:58)
[2018-10-21] MEDS: furosemide 20 MG/2 ML vial IV SCH (08:58)
[2018-10-21] MEDS: FLUoxetine 20mg capsule PO SCH (08:58)
[2018-10-21] MEDS: carVEDilol 3.125mg tablet PO SCH (08:58)
[2018-10-21] MEDS: dexmedetomidin/NS 400mcg/100ml 100 ML IV SCH (09:15)
--- NOTE | 2018-10-21 12:14 | NUR ---
Reassessment: At noon today PEG will be in for 24 hours and per MD can begin at trickle rate. Recommend to advance as tolerated by 20 ml q 8 using Jevity 1.2, d/w RN. Goal rate is 65 ml/hr. Pending transfer to [facility] possibly today or tomorrow. Noted that sodium is elevated, recommend to resume 200 ml water flush q 4 when TF at goal rate d/w RN. Will continue to follow. Recommend 1. PEG tube feedings using Jevity 1.2 starting at 20 ml/hr and advance by 20 ml q8 to goal rate of 65 ml/hr to61 provide total volume of 1560 ml, 1872 cals, 87 gm protein, and 1259 ml free water. 2. Continue water flush 200 q 4 when PEG placed and tube feedings are at goal 3. Prealbumin q / 4. daily wt Addendum: 10/21/18 at [address] Amended: Links added.
[2018-10-21] MEDS: lactose-reduced food (Ensure High Protein) 237ml bottle PO SCH (12:30)
--- NOTE | 2018-10-21 17:10 | NUR ---
Pt left room with [facility] staff for transfer, myself at bedside also to bag patient. Pt stable at this time, ready for transfer. Daughter Mery made aware. No belongings to go with patient.
--- NOTE | 2018-10-21 17:10 | NUR ---
1500 respiratory SVN treatment triaged
[2018-10-21 18:25] LABS: POTASSIUM 3.3 MMOL/L (3.5-5.1)
== END 2018-10-21 17:50 | DRG 4 ==
LOC: ER 06:17 → ED HOLD 14:01 → EDBEDREQ 15:50 → PCU 3S 16:45 → CMPBEDREQ 19:27 → CICU 2S 09-28 17:57
PROVIDERS: ADMIT Internal Medicine Critical Care Medicine; ATTEND Internal Medicine Critical Care Medicine
PROC: 05H533Z Insertion of Infusion Device into Right Subclavian Vein, Percutaneous Approach (ICD-10-PCS; 2018-09-27)
PROC: 5A1955Z Respiratory Ventilation, Greater than 96 Consecutive Hours (ICD-10-PCS; principal; 2018-10-02)
PROC: 0JHD3XZ Insertion of Tunneled Vascular Access Device into Right Upper Arm Subcutaneous Tissue and Fascia, Percutaneous Approach (ICD-10-PCS; 2018-10-02)
PROC: 5A1955Z Respiratory Ventilation, Greater than 96 Consecutive Hours (ICD-10-PCS; 2018-10-02)
PROC: 0B113F4 Bypass Trachea to Cutaneous with Tracheostomy Device, Percutaneous Approach (ICD-10-PCS; 2018-10-19)
DX: A41.9 Sepsis, unspecified organism (principal); I50.21 Acute systolic (congestive) heart failure; J96.00 Acute respiratory failure, unspecified whether with hypoxia or hypercapnia; J10.00 Influenza due to other identified influenza virus with unspecified type of pneumonia; J18.9 Pneumonia, unspecified organism; I63.10 Cerebral infarction due to embolism of unspecified precerebral artery; E87.2 Acidosis; E87.1 Hypo-osmolality and hyponatremia; R57.9 Shock, unspecified; G93.40 Encephalopathy, unspecified; I82.4Z1 Acute embolism and thrombosis of unspecified deep veins of right distal lower extremity; R65.20 Severe sepsis without septic shock; R74.0 Nonspecific elevation of levels of transaminase and lactic acid dehydrogenase [LDH]
CPT/HCPCS: 36415; 36600; 49440; 70450; 70496; 70498; 70553; 71045; 71250; 74018; 80048; 80053; 80069; 80074; 80202; 80329; 81001; 82272; 82390; 82550; 82570; 82803; 82810; 82948; 83036; 83516; 83540; 83550; 83605; 83690; 83735; 83880; 83930; 83935; 84100; 84132; 84134; 84145; 84300; 84439; 84443; 84484; 85018; 85025; 85379; 85384; 85610; 85730; 86038; 86703; 86709; 86803; 87040; 87070; 87207; 87324; 87340; 87449; 87502; 87503; 93005; 93306; 93308; 93971; 94002; 94003; 94640; 94660; 94760; 95816; 96365; 96366; 96367; 96375; 97110; 97112; 97161; 97530; 99285; A9579; G0378; J0692; J1100; J1250; J1265; J1450; J1610; J1644; J1720; J1815; J1940; J2001; J2020; J2185; J2250; J2270; J2543; J2765; J2916; J3010; J3370; J3475; J3480; J3490; J7030; J7060; P9045; Q9963; Q9967

== ENCOUNTER 2018-11-19 13:11 | Outpatient (CLI) | payer OTHER, BC ==
[~2018-11-19 13:11] MED LIST changes: -FLUO10CA28 PO; +FLUO20CA39 PO; -HYDR-4383 PO; -PRAV10TA39 PO; -etomidate 2mg/ml inj. ONE
== END 2018-11-19 23:59 | disposition home or self-care (01) ==
LOC: CARD DIAG 13:11
PROVIDERS: ATTEND Internal Medicine Critical Care Medicine
DX: I08.1 Rheumatic disorders of both mitral and tricuspid valves (principal); J96.90 Respiratory failure, unspecified, unspecified whether with hypoxia or hypercapnia; I10 Essential (primary) hypertension; J45.909 Unspecified asthma, uncomplicated; Z88.2 Allergy status to sulfonamides; Z88.8 Allergy status to other drugs, medicaments and biological substances
CPT/HCPCS: 93306